=== PATIENT | male | born 1945 | race Caucasian/White ===

== ENCOUNTER 2016-12-15 09:14 | Inpatient (IN) | payer OTHER, BC ==
[2016-12-15] MEDS ORDERED: SODIUM CHLORIDE 0.9% 1000 ML INFUS.BAG IV ONE ×2 (10:00→11:08)
[2016-12-15 10:17] LABS: VENOUS PH 7.34 (7.32-7.42)
[2016-12-15 10:36] LABS: BASOPHIL 0.5 % (0-2.0); EOSINOPHIL 0.7 % (0-4.5); MCH 30.4 pg (25.7-33.7); MEAN CELL VOLUME 92.3 fl (80-96); MEAN PLT VOLUME 7.9 fl (7.5-11.1); NEUTROPHILS 69.2 % (42.8-82.8); PLATELET COUNT 171 K/MM3 (134-434); RDW 13.8 % (11.9-15.9); WHITE BLOOD COUNT 10.3 K/mm3 (4.0-10.0)
--- NOTE | 2016-12-15 10:45 | PDOC ---
History of Present Illness - General Chief Complaint: SIRS, Suspected/Possible Stated Complaint: FALL Time Seen by Provider: 12/15/16 09:30 History Source: Patient Exam Limitations: No Limitations - History of Present Illness Initial Comments: 12/15/16 10:40 The patient is a 71M with a PMH of HTN, ESRD s/p kidney transplant, DM, CAD s/p stents who presents to the ED via EMS for weakness. The patient states that he was feeling well until around 3am where he began to feel weak. He states that he did not fall, lose consciousness, or hit his head but thought it was secondary to hypoglycemia. He was laying on the ground and could not stand up. He tried to call his brother and eventually called EMS to bring him here. Surg: s/p renal transplant Meds: listed All: none Social: does not smoke, drink, or use recreational drugs Past History - Past Medical History Allergies/Adverse Reactions: Allergies Allergy/AdvReac Type Severity Reaction Status Date / Time No Known Allergies Allergy Verified 12/15/16 09:47 Home Medications: Ambulatory Orders Aspirin [Aspirin EC] 81 mg PO DAILY 12/15/16 Atorvastatin Ca [Lipitor] 20 mg PO HS 12/15/16 Clopidogrel Bisulfate [Plavix -] 75 mg PO DAILY 12/15/16 Furosemide [Lasix -] 40 mg PO DAILY 12/15/16 Insulin (Levemir) [Levemir Flexpen -] 22 units SQ HS 12/15/16 Insulin Aspart [Novolog] 16 unit SQ AC 12/15/16 Losartan Potassium 25 mg PO DAILY 12/15/16 Metoprolol Tartrate 50 mg PO BID 12/15/16 Mycophenolate Mofetil [Cellcept] 500 mg PO BID 12/15/16 Nifedipine [Procardia Xl] 30 mg PO BID 12/15/16 Pantoprazole Sodium [Protonix -] 20 mg PO DAILY 12/15/16 Prednisone 5 mg PO DAILY 12/15/16 Sodium Bicarbonate - 650 mg PO BID 12/15/16 Tacrolimus [Prograf] 3 mg PO BID 12/15/16 Tamsulosin HCl [Flomax] 0.4 mg PO DAILY 12/15/16 Anemia: No Asthma: No Cancer: No Cardiac Disorders: No CVA: No COPD: No CHF: No Dementia: No Diabetes: Yes GI Disorders: No Disorders: No HTN: Yes Hypercholesterolemia: Yes Liver Disease: No Seizures: No Thyroid Disease: No - Surgical History Abdominal Surgery: Yes Appendectomy: No Cardiac Surgery: No Cholecystectomy: No Lung Surgery: No Neurologic Surgery: No Orthopedic Surgery: No - Psycho/Social/Smoking Cessation Hx Anxiety: No Suicidal Ideation: No Smoking Status: No Smoking History: Never smoked Have you smoked in the past 12 months: No Number of Cigarettes Smoked Daily: 0 Information on smoking cessation initiated: No Hx Alcohol Use: No Drug/Substance Use Hx: No Substance Use Type: None Hx Substance Use Treatment: No Review of Systems - Review of Systems Able to Perform ROS?: Yes Is the patient limited Lao proficient: No Constitutional: Yes: Weakness. No: Chills, Fever Respiratory: No: Shortness of Breath Cardiac (ROS): No: Chest Pain ABD/GI: No: Constipated, Diarrhea, Nausea, Vomiting, Other (abd pain) Neurological: Yes: Weakness. No: Headache, Numbness, Tingling *Physical Exam - Vital Signs Last Vital Signs Temp Pulse Resp BP Pulse Ox 94.8 F L 97 H 18 155/120 98 12/15/16 10:00 12/15/16 09:15 12/15/16 09:15 12/15/16 10:00 12/15/16 09:15 - Physical Exam General Appearance: Yes: Nourished, Appropriately Dressed HEENT: positive: Normal Voice, Hearing Grossly Normal Respiratory/Chest: positive: Lungs Clear, Normal Breath Sounds. negative: Chest Tender, Respiratory Distress, Labored Respiration Cardiovascular: positive: Regular Rhythm, S1, S2, Bradycardia. negative: Regular Rate, Diastolic Murmur, Systolic Murmur Gastrointestinal/Abdominal: positive: Flat, Soft. negative: Tender, Distended, Guarding, Tenderness Integumentary: positive: Dry, Warm Neurologic: positive: Fully Oriented, Alert, Normal Mood/Affect ED Treatment Course - LABORATORY CBC & Chemistry Diagram: 12/15/16 10:21 12/15/16 10:21 - ADDITIONAL ORDERS Additional order review: Laboratory Results 12/15/16 12/15/16 10:15 09:41 VBG pH 7.34 POC VBG pCO2 32.1 L POC VBG pO2 80.4 H Mixed VBG HCO3 17.0 L POC Glucometer > 400 12/15/16 09:41 POC Glucometer > 400 - RADIOLOGY Radiology Studies Ordered: Category Date Time Status HEAD CT WITHOUT CONTRAST [CT] Stat CT Scan 12/15/16 10:35 Ordered CHEST X-RAY PORTABLE* [RAD] Stat Radiology 12/15/16 09:44 Taken - Medications Given in the ED: ED Medications Discontinued Medications Generic Name Dose Route Start Last Admin Trade Name Anibal PRN Reason Stop Dose Admin Sodium Chloride 1,000 ml 12/15/16 10:00 12/15/16 10:00 Normal Saline - IV 12/15/16 10:01 1,000 ml ONCE ONE Administration Medical Decision Making - Medical Decision Making 12/15/16 10:44 The patient is a 71M with a PMH of HTN, DM, ESRD s/p renal transplant, and CAD s /p stents who presented with weakness. His BG was read as "high" and he looked dehydrated (dry mucous membranes). We have started the sepsis protocol and I have ordered fluids for the patient. I will reassess when labs return. 12/15/16 11:15 WBC count of 10.3. CXR shows no acute process. 12/15/16 11:40 Lactate of 2.4. AG of 17. K at 5.0. Will start on insulin. 12/15/16 12:[address] Huston for ICU admission. He will be consulted on the admission. 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 Dizzy , disoriented, couldn't walk - was hypoglycemic. Kept saying he was fine. December 08 vitals. 102/50 P84 BG - 66, 76, 161 Dr. Paris at [facility] is his PCP. When he is ready for discharge, please contact the [facility] clinic at [phone]. 12/15/16 13:08 I spoke with PAVEL Hunt who accepts admission under Dr. Allan for ICU. *DC/Admit/Observation/Transfer Diagnosis at time of Disposition: Diabetic ketoacidosis Qualifiers: Diabetes mellitus type: other specified (including LAURA) Diabetes mellitus complication detail: without coma Qualified Code(s): E13.10 - Other specified diabetes mellitus with ketoacidosis without coma - Discharge Dispostion Condition at time of disposition: Stable Admit: Yes - Attestations Physician Attestion: 12/15/16 13:09 I, Dr. Eduard Camarillo, attest that this document has been prepared under my direction and personally reviewed by me in its entirety. I further attest, that it accurately reflects all work, treatment, procedures and medical decision -making performed by me.
--- NOTE | 2016-12-15 10:52 | PDOC ---
Attending Attestation - Resident Resident Name: Eduard Camarillo - ED Attending Attestation I have performed the following: I have examined & evaluated the patient, The case was reviewed & discussed with the resident, I agree w/resident's findings & plan, Exceptions are as noted - HPI HPI: 12/15/16 10:49 Agree with the resident's HPI as documented in the electronic medical record. - Physicial Exam PE: 12/15/16 10:49 Agree with the resident's physical examination as documented in the electronic medical record. - Medical Decision Making 12/15/16 10:50 71-year-old male with history of hypertension, end-stage renal disease status post renal transplant in 2015, coronary artery disease status post stent, diabetes who presents to the emergency department with generalized weakness and found on the ground unable to get up. FSG is >400 in the ED. Differential diagnosis includes but is not limited to: DKA, uncontrolled diabetes, sepsis, infection (pneumonia versus UTI), transplant rejection, electrolyte abnormality , ACS, CVA, toxic/metabolic derangement, dehydration. Plan: 1. EKG 2. Labs 3. Urine analysis 4. Panculture 5. IV fluids for hydration 6. Chest x-ray 7. CT head 8. Observe and reevaluate 12/15/16 13:01 Addendum: Labs were reviewed and are noted in the EMR. The patient has a glucose of 473 with an anion gap of 17 and + acetone in the blood. PH is 7.35. The patient is in DKA and an insulin drip was started at 0.1 units per kilogram per hour. IV fluid resuscitation has been administered, the patient has been pancultured and Zosyn has been administered with no clear source of infection. The plan is to admit to a monitored setting likely the ICU for continued management.
[2016-12-15 11:05] LABS: ACTIVATED PTT 31.5 SECONDS (26.9-34.4)
[2016-12-15 11:16] LABS: ALBUMIN 3.1 g/dl (3.4-5.0); ANION GAP 17 (8-16); CALCIUM 8.4 mg/dL (8.5-10.1); CO2 17 mmol/L (21-32); SGOT/AST 17 U/L (15-37); SGPT/ALT 21 U/L (12-78)
[2016-12-15 11:18] LABS: ALK PHOS 82 U/L (45-117); BILIRUBIN,TOTAL 0.5 mg/dL (0.2-1.0); CPK 129 IU/L (39-308); TROPONIN I < 0.02 ng/ml (0.00-0.05)
[2016-12-15 11:22] LABS: GLUCOSE,RANDOM 473 mg/dL (74-106)
[2016-12-15] MEDS ORDERED: INSULIN REGULAR HUMAN 100 UNITS/ML *VIAL SQ ONE (11:45)
[2016-12-15] MEDS ORDERED: PIPERACILLIN/TAZOB 3.375 GM/50 ML PRE-DOCKED IV ONE (11:46)
[2016-12-15] MEDS ORDERED: INSULIN REGULAR 100 UNITS in SODIUM CHLORIDE 99 ML IVPB SCH ×3 (12:00→18:45)
[2016-12-15] MEDS ORDERED: SODIUM CHLORIDE 1,000 ML IV SCH ×3 (12:00→17:00)
[2016-12-15] MEDS ORDERED: CEFTRIAXONE 50 ML ONE (12:09)
[2016-12-15] MEDS ORDERED: INSULIN REGULAR HUMAN 100 UNITS/ML *VIAL ONE (12:10)
[2016-12-15] MEDS ORDERED: ONDANSETRON 4 MG/2 ML VIAL IVPB PRN (13:09)
[2016-12-15] MEDS ORDERED: ACETAMINOPHEN 325 MG TABLET (FP) PO PRN (13:09)
--- NOTE | 2016-12-15 13:26 | EKG ---
Test Reason : Blood Pressure : / mmHG Vent. Rate : 102 BPM Atrial Rate : 049 BPM P-R Int : 184 ms QRS Dur : 086 ms QT Int : 536 ms P-R-T Axes : -38 -22 037 degrees QTc Int : 698 ms SUBOPTIMAL ECG DUE TO BASE LINE ARTIFACTS RHYTHM IS UNCERTAIN MINIMAL VOLTAGE CRITERIA FOR LVH, MAY BE NORMAL VARIANT LEFT AXIS DEVIATION AGE UNDETERMINED ANTEROSEPTAL MS COMPARED TO 2013 CANNOT DETERMINE UNDERLYING RHYTHM. REPAPEAT TRACING Confirmed by LETICIA HUTCHINS MD ([id number]) on 12/15/2016 1:25:50 PM Referred By: Confirmed By:LETICIA HUTCHINS MD
[2016-12-15 13:33] LABS: URINE APPEARANCE SLCLOUDY; URINE BILIRUBIN NEGATIVE (NEGATIVE); URINE BLOOD 2+ (NEGATIVE); URINE COLOR DKYELLOW; URINE GLUCOSE (UA) 3+ (NEGATIVE); URINE KETONE TRACE (NEGATIVE); URINE LEUK ESTERASE NEGATIVE (NEGATIVE); URINE NITRITE NEGATIVE (NEGATIVE); URINE PROTEIN NEGATIVE (NEGATIVE); URINE UROBILINOGEN NEGATIVE mg/dL (0.2-1.0)
[2016-12-15 13:55] LABS: URINE HYALINE CAST 99 /lpf; URINE MUCUS RARE; URINE RBC 4 /hpf (0-3); URINE WBC 1 /hpf (3-5)
[2016-12-15] MEDS ORDERED: HEPARIN NA (PORCINE) 5,000 UNITS/ML 1ML VIAL SQ SCH (14:00)
--- NOTE | 2016-12-15 14:47 | PN ---
Physical Exam: SUBJECTIVE: Patient seen and examined OBJECTIVE: Vital Signs Period Temp Pulse Resp BP Sys/Esposito Pulse Ox Last 24 Hr 95.2 F-95.8 F 56-62 18-22 101-102/43-44 99-100 GENERAL: The patient is awake, alert, and fully oriented, in no acute distress. HEAD: Normal with no signs of trauma. EYES: PERRL, extraocular movements intact, sclera anicteric, conjunctiva clear. No ptosis. ENT: Ears normal, nares patent, oropharynx clear without exudates, moist mucous membranes. NECK: Trachea midline, full range of motion, supple. LUNGS: Breath sounds equal, clear to auscultation bilaterally, no wheezes, no crackles, no accessory muscle use. HEART: Regular rate and rhythm, S1, S2 without murmur, rub or gallop. ABDOMEN: Soft, nontender, nondistended, normoactive bowel sounds, no guarding, no rebound, no hepatosplenomegaly, no masses. EXTREMITIES: 2+ pulses, warm, well-perfused, no edema. NEUROLOGICAL: Cranial nerves II through XII grossly intact. Normal speech, gait not observed. PSYCH: Normal mood, normal affect. SKIN: Warm, dry, normal turgor, no rashes or lesions noted Laboratory Results - last 24 hr 12/15/16 13:45 POC Glucometer > 400 Active Medications Generic Name Dose Route Start Last Admin Trade Name Freq PRN Reason Stop Dose Admin Heparin Sodium (Porcine) 5,000 unit 12/15/16 14:00 Heparin - SQ TID KAT Sodium Chloride 1,000 mls @ 200 mls/hr 12/15/16 12:00 12/15/16 12:25 Normal Saline - IV 200 mls/hr ASDIR KAT Administration Insulin Human Regular 100 100 mls @ 8.39 mls/hr 12/15/16 12:00 12/15/16 12:25 units/ Sodium Chloride IVPB 8.39 mls/hr TITR KAT Administration Protocol 0.1 UNITS/KG/HR Mycophenolate Mofetil 500 mg 12/15/16 22:00 Cellcept - PO BID KAT Prednisone 5 mg 12/16/16 10:00 Deltasone - PO DAILY KAT ASSESSMENT/PLAN:
--- NOTE | 2016-12-15 14:49 | HP ---
CHIEF COMPLAINT: generalized weakness PCP: Dr. Frazier ([facility] @ [facility]) HISTORY OF PRESENT ILLNESS: 71 yr old man s/p renal transplant, DM II and HTN presents with generalized weakness since this morning. He was on the floor for few hours and was crawling around due to weakness. Says he did not fall but slowly came down to the floor. He has been working around his house and was not eating or drinking as per his usual due to family stress(his brother has cancer and is not doing well). He thinks he may have missed insulin dosing sometime last week and possibly last night. Says he has been eating filet [email or web address] with steamed vegetables. He lives alone and does his own cooking. PAST MEDICAL HISTORY: Anemia, HLD, DMII, Vit D deficiency, HTN PAST SURGICAL HISTORY: Renal transplant: Mar 09 2016 HOME MEDICATIONS: [facility]: Neurologist: Dr. Zuniga PCP: dr. Paris (has not seen in him in a while) verified w/Zoey(RN): list from november 17 2016 Atovaquone 750/5mL 2 teaspoons 10ml daily DISCONTINUED, s/p valgancicyclovir 450 until August 2016 DISCONTINUED ASA 81mg po daily plavix 75mg po daily colace 100 TID + senna 8.6 1 tabs at bedtime prn for constipation lasix 40mg BID Aspart insulin 100u/ml, 14-20units sq before breakfast, 18-20 before lunch, 18- 20 before dinner (unknown frequency) detemir insulin 18units at bedtime (changed on 10/02 from 25 to 18units) losartan 25mg daily metrop Tart 50mg 1/2t BID Cellcept 500mg po bid procardia 30mg po bid protonix 20mg daily prednisone 5mg daily sodium bicarb 650mg 2tabs bid Tacromilus 1mgcapsule 3caps po q12hr tamsulosin 0.4mg 1 capsule daily metformin will start as outpt Home Medications6 Medication Instructions Recorded Aspirin [Aspirin EC] 81 mg PO DAILY 12/15/16 Atorvastatin Ca [Lipitor] DISCONTINUED 20 mg PO HS 12/15/16 Clopidogrel Bisulfate [Plavix -] 75 mg PO DAILY 12/15/16 Furosemide [Lasix -] 40 mg PO DAILY 12/15/16 Insulin (Levemir) [Levemir Flexpen 22 units SQ HS 12/15/16 -] Insulin Aspart [Novolog] 16 unit SQ AC 12/15/16 Losartan Potassium 25 mg PO DAILY 12/15/16 Metoprolol Tartrate 50 mg PO BID 12/15/16 Mycophenolate Mofetil [Cellcept] 500 mg PO BID 12/15/16 Nifedipine [Procardia Xl] 30 mg PO BID 12/15/16 Pantoprazole Sodium [Protonix -] 20 mg PO DAILY 12/15/16 Prednisone 5 mg PO DAILY 12/15/16 Sodium Bicarbonate - 650 mg PO BID 12/15/16 Tacrolimus [Prograf] 3 mg PO BID 12/15/16 Tamsulosin HCl [Flomax] 0.4 mg PO DAILY 12/15/16 REVIEW OF SYSTEMS CONSTITUTIONAL: Present:generalized weakness Absent: fever, chills, CARDIOVASCULAR: Absent: chest pain, syncope, palpitations. lightheadedness RESPIRATORY: Present: mild cough last week Absent: shortness of breath GASTROINTESTINAL: Absent: abdominal pain, vomiting, diarrhea GENITOURINARY: Present:frequency, Absent: dysuria PHYSICAL EXAMINATION Vital Signs - 24 hr 12/15/16 12/15/16 12/15/16 13:30 14:00 14:12 Temperature 95.2 F L 95.8 F L Pulse Rate 62 56 L Respiratory 20 22 Rate Blood Pressure 102/44 101/43 O2 Sat by Pulse 100 99 Oximetry (%) GENERAL: Awake, alert, and fully oriented, in no acute distress. EYES: Pupils equal, round and reactive to light, extraocular movements intact, sclera anicteric, conjunctiva clear. No lid lag. LUNGS: Breath sounds equal, clear to auscultation bilaterally. No wheezes, and no crackles. No accessory muscle use. HEART: Regular rate and rhythm, normal S1 and S2 without murmur, rub or gallop. ABDOMEN: Soft, nontender, not distended, Laboratory Results - last 24 hr 12/15/16 13:45 POC Glucometer > 400 Active Medications Chlorhexidine Gluconate (Hibiclens For Decolonization -) 1 applic TP HS KAT Clopidogrel Bisulfate (Plavix -) 75 mg PO DAILY KAT Docusate Sodium (Colace -) 100 mg PO TID PRN PRN Reason: CONSTIPATION Heparin Sodium (Porcine) (Heparin -) 5,000 unit SQ TID [facility] Dextrose/Sodium Chloride (D5-1/2ns -) 1,000 mls @ 250 mls/hr IV ASDIR KAT Stop: 12/15/16 20:14 Sodium Chloride (Normal Saline -) 1,000 mls @ 250 mls/hr IV ASDIR KAT Insulin Aspart (Novolog Vial Sliding Scale -) 1 vial SQ TIDAC KAT PRN Reason: Protocol Last Admin: 12/15/16 17:57 Dose: Not Given Insulin Detemir (Levemir Vial) 18 units SQ HS KAT Mupirocin (Bactroban Ointment (For Decolonization) -) 1 applic NS BID KAT Stop: 12/20/16 21:59 Mycophenolate Mofetil (Cellcept -) 500 mg PO BID KAT Pantoprazole Sodium (Protonix -) 20 mg PO DAILY KAT Prednisone (Deltasone -) 5 mg PO DAILY KAT Senna (Senna -) 1 tab PO DAILY PRN PRN Reason: CONSTIPATION Sodium Bicarbonate (Sodium Bicarbonate -) 1,300 mg PO BID [facility] Laboratory Last Values WBC 10.3 K/mm3 (4.0-10.0) H D 12/15/16 10:21 RBC 3.91 M/mm3 (4.00-5.60) L D 12/15/16 10:21 Hgb 11.9 GM/dL (11.7-16.9) D 12/15/16 10:21 Hct 36.1 % (35.4-49) D 12/15/16 10:21 MCV 92.3 fl (80-96) 12/15/16 10:21 MCH 30.4 pg (25.7-33.7) 12/15/16 10:21 MCHC 33.0 g/dl (32.0-35.9) 12/15/16 10:21 RDW 13.8 % (11.9-15.9) 12/15/16 10:21 Plt Count 171 K/MM3 (134-434) 12/15/16 10:21 MPV 7.9 fl (7.5-11.1) D 12/15/16 10:21 Neutrophils % 69.2 % (42.8-82.8) D 12/15/16 10:21 Lymphocytes % 18.5 % (8-40) D 12/15/16 10:21 Monocytes % 11.1 % (3.8-10.2) H D 12/15/16 10:21 Eosinophils % 0.7 % (0-4.5) D 12/15/16 10:21 Basophils % 0.5 % (0-2.0) 12/15/16 10:21 INR 1.00 (0.82-1.09) 12/15/16 10:21 PTT (Actin FS) 31.5 SECONDS (26.9-34.4) D 12/15/16 10:21 VBG pH 7.34 (7.32-7.42) 12/15/16 10:15 POC VBG pCO2 32.1 mmHg (38-52) L 12/15/16 10:15 POC VBG pO2 80.4 mmHg (28-48) H 12/15/16 10:15 Mixed VBG HCO3 17.0 meq/L (19-25) L 12/15/16 10:15 Sodium 142 mmol/L (136-145) 12/15/16 16:19 Potassium 4.5 mmol/L (3.5-5.1) 12/15/16 16:19 Chloride 108 mmol/L (98-107) H 12/15/16 16:19 Carbon Dioxide 17 mmol/L (21-32) L 12/15/16 16:19 Anion Gap 17 (8-16) H 12/15/16 16:19 BUN 66 mg/dL (7-18) H 12/15/16 16:19 Creatinine 2.9 mg/dL (0.7-1.3) H 12/15/16 16:19 Creat Clearance w eGFR 20.79 (>60) 12/15/16 10:21 POC Glucometer 167.49066 UNITS (()) 12/15/16 17:28 Random Glucose 256 mg/dL (74-106) H D 12/15/16 16:19 Lactic Acid 1.9 mmol/L (0.4-2.0) 12/15/16 14:00 Calcium 7.6 mg/dL (8.5-10.1) L 12/15/16 16:19 Phosphorus 4.8 mg/dL (2.5-4.9) 12/15/16 16:19 Magnesium 2.2 mg/dL (1.8-2.4) 12/15/16 16:19 Total Bilirubin 0.5 mg/dL (0.2-1.0) D 12/15/16 10:21 AST 17 U/L (15-37) D 12/15/16 10:21 ALT 21 U/L (12-78) 12/15/16 10:21 Alkaline Phosphatase 82 U/L (45-117) D 12/15/16 10:21 Ammonia 53.37 umol/L (11-32) H 12/15/16 11:33 Creatine Kinase 129 IU/L (39-308) 12/15/16 10:21 Troponin I < 0.02 ng/ml (0.00-0.05) D 12/15/16 10:21 Total Protein 6.0 g/dl (6.4-8.2) L 12/15/16 10:21 Albumin 3.1 g/dl (3.4-5.0) L 12/15/16 10:21 Urine Color Dkyellow 12/15/16 10:21 Urine Appearance Slcloudy 12/15/16 10:21 Urine pH 5.0 (5.0-8.0) 12/15/16 10:21 Urine Protein Negative (NEGATIVE) 12/15/16 10:21 Urine Glucose (UA) 3+ (NEGATIVE) H 12/15/16 10:21 Urine Ketones Trace (NEGATIVE) H 12/15/16 10:21 Urine Blood 2+ (NEGATIVE) H 12/15/16 10:21 Urine Nitrite Negative (NEGATIVE) 12/15/16 10:21 Urine Bilirubin Negative (NEGATIVE) 12/15/16 10:21 Urine Urobilinogen Negative mg/dL (0.2-1.0) 12/15/16 10:21 Ur Leukocyte Esterase Negative (NEGATIVE) 12/15/16 10:21 Urine RBC 4 /hpf (0-3) 12/15/16 10:21 Urine WBC 1 /hpf (3-5) 12/15/16 10:21 Ur Epithelial Cells Rare /hpf (FEW) 12/15/16 10:21 Hyaline Casts 99 /lpf 12/15/16 10:21 Urine Mucus Rare 12/15/16 10:21 Acetone, Qual Positive moderate 2+ (NEGATIVE) 12/15/16 11:30 Blood Type O POSITIVE 12/15/16 10:21 Antibody Screen Negative 12/15/16 10:21 ASSESSMENT/PLAN: 71 yr old man s/p renal transplant, HTN, DM II admitted to ICU for DKA. #DKA- hyperglycemia improved, likely due to medication noncompliance and non- diabetic diet/DM II - insulin IV, transition to levemir(long acting home dose of 18units) and NISS, start diet - BGM q2hr, repeat BMP with mag and phos q4hr - 1/2 NS @ 250cc/hr as recent Na is 142, was given boluses in ED + 1 bolus of d5 /1/2 NS in ICU when BGM <200 - plan to replete K+ as needed on repeat BMP - Consult: Heather Osborne (saw pt when he was receiving dialysis at [facility]) #LAVERNE - likely pre-renal - Discussed with Dr. Frazier who saw the patient in his office November 29, pt's Cr baseline is 1.7-1.9, verified post-transplant meds listed above, feels that elevated Cr is likely pre-renal as well, recommend holding metformin and anti- HTN medications and continuing tacrolimus, prednisone and Cellcept as prescribed He will follow the patient once discharged to repeat the BMP if it does not correct with IVF - IVF #renal transplant - continue immunotherapy meds #HTN - currently hypotensive, will hold home meds, restart once BP improves DVT: heparin sq TID Diet: renal/low Na/diabetic Pain: avoid nephrotoxic meds Visit type - Emergency Visit Emergency Visit: No - New Patient This patient is new to me today: Yes Date on this admission: 12/15/16 - Critical Care Critical Care patient: Yes Total Critical Care Time (in minutes): 32 Critical Care Statement: The care of this patient involved high complexity decision making to prevent further life threatening deterioration of the patient 's condition and/or to evalute & treat vital organ system(s) failure or risk of failure.
--- NOTE | 2016-12-15 15:24 | HP ---
CHIEF COMPLAINT: Weakness PCP: Dr. Paris Computer Publisher: Dr. Frazier HISTORY OF PRESENT ILLNESS: Pt is a 71yo M with a PMHx of IDDM2, ESRD (s/p transplant) who presented to the ER by EMS after an episode of weakness and lethargy. The pt stated that the patient felt weak this morning, no LOC, and brought himself to the floor w/o fall. He wasn't able to get himself back up, and called for EMS. His Blood sugar on the field was >400. The pt states that he is compliant with his insulin regimen, and took his night time and morning insulin as scheduled. He also felt feverish with chills, but had no CP, SOB, no abdominal pain, and no recent sick contacts. He denies recent surgeries or drug use. He states he did not sleep last night, due to poor sleeping habits. He has family stressors, he has difficulty dealing with his dying brother who has Hep C. He endorses polydipsia and polyuria last night and this morning. He states that he had had episode of low blood sugar in the past, but not high blood sugar. The patient checks his fingerstick glucose frequently, with Am glucose <100, and afternoon glucoses between 120-140. ER course was notable for: (1) FSG >400, IVF NS Bolus (2) CXR neg; Head CT neg (3) BMP - shows AG 17, K+ 5.5, Lactic Acid 2.4 (4) Started on Insulin drip 0.1mg/kg/hr w/o bolus dose (5) Given a dose of Zosyn Recent Travel: Denies PAST MEDICAL HISTORY: IDDM2, ESRD (s/p transplant in 2016 as per pt), CAD s/p stent, HTN,, BPH, ?GERD PAST SURGICAL HISTORY: Renal Tx in 2014, Cardiac stents Social History: Smoking: Denies Alcohol: Denies Drugs: Denies Family History: No family hx of diabetes Allergies No Known Allergies Allergy (Verified 12/15/16 09:47) HOME MEDICATIONS: Home Medications Medication Instructions Recorded Aspirin [Aspirin EC] 81 mg PO DAILY 12/15/16 Atorvastatin Ca [Lipitor] 20 mg PO HS 12/15/16 Clopidogrel Bisulfate [Plavix -] 75 mg PO DAILY 12/15/16 Furosemide [Lasix -] 40 mg PO DAILY 12/15/16 Insulin (Levemir) [Levemir Flexpen 22 units SQ HS 12/15/16 -] Insulin Aspart [Novolog] 16 unit SQ AC 12/15/16 Losartan Potassium 25 mg PO DAILY 12/15/16 Metoprolol Tartrate 50 mg PO BID 12/15/16 Mycophenolate Mofetil [Cellcept] 500 mg PO BID 12/15/16 Nifedipine [Procardia Xl] 30 mg PO BID 12/15/16 Pantoprazole Sodium [Protonix -] 20 mg PO DAILY 12/15/16 Prednisone 5 mg PO DAILY 12/15/16 Sodium Bicarbonate - 650 mg PO BID 12/15/16 Tacrolimus [Prograf] 3 mg PO BID 12/15/16 Tamsulosin HCl [Flomax] 0.4 mg PO DAILY 12/15/16 REVIEW OF SYSTEMS CONSTITUTIONAL: Absent: fever, diaphoresis, malaise, loss of appetite, weight change Present: chills, generalized weakness HEENT: Absent: rhinorrhea, nasal congestion, throat pain, throat swelling, difficulty swallowing, mouth swelling, ear pain, eye pain, visual changes CARDIOVASCULAR: Absent: chest pain, syncope, palpitations, irregular heart rate, lightheadedness , peripheral edema RESPIRATORY: Absent: cough, shortness of breath, dyspnea with exertion, orthopnea, wheezing, stridor, hemoptysis GASTROINTESTINAL: Absent: abdominal pain, abdominal distension, nausea, vomiting, diarrhea, constipation, melena, hematochezia GENITOURINARY: Absent: dysuria, frequency, urgency, hesitancy, hematuria, flank pain, genital pain Present: polyuria MUSCULOSKELETAL: Absent: myalgia, arthralgia, joint swelling, back pain, neck pain SKIN: Absent: rash, itching, pallor HEMATOLOGIC/IMMUNOLOGIC: Absent: easy bleeding, easy bruising, lymphadenopathy, frequent infections ENDOCRINE: Absent: unexplained weight gain, unexplained weight loss, heat intolerance, cold intolerance NEUROLOGIC: Absent: headache, focal weakness or paresthesias, dizziness, unsteady gait, seizure, mental status changes, bladder or bowel incontinence PSYCHIATRIC: Absent: anxiety, depression, suicidal or homicidal ideation, hallucinations. PHYSICAL EXAMINATION Vital Signs - 24 hr 12/15/16 12/15/16 12/15/16 13:30 14:00 14:12 Temperature 95.2 F L 95.8 F L Pulse Rate 62 56 L Respiratory 20 22 Rate Blood Pressure 102/44 101/43 O2 Sat by Pulse 100 99 Oximetry (%) GENERAL: AAOx3, in NAD, w/ bear hugger HEENT: PERRLA, EOMi, No pharyngeal exudate, no cervical LAD LUNG: CTABL, no labored respirations CV: S1, S2, RRR ABD: Soft, NT, ND, hypoactive BS MSK: No edema, no erythema NEURO: CN 2-12 intact, sensation equal and intact in face/body, MSK 5+ in all extremities Laboratory Results - last 24 hr 12/15/16 12/15/16 12/15/16 09:41 10:15 10:21 WBC 10.3 H D RBC 3.91 L D Hgb 11.9 D Hct 36.1 D MCV 92.3 MCH 30.4 MCHC 33.0 RDW 13.8 Plt Count 171 MPV 7.9 D Neutrophils % 69.2 D Lymphocytes % 18.5 D Monocytes % 11.1 H D Eosinophils % 0.7 D Basophils % 0.5 INR PTT (Actin FS) VBG pH 7.34 POC VBG pCO2 32.1 L POC VBG pO2 80.4 H Mixed VBG HCO3 17.0 L Sodium Potassium Chloride Carbon Dioxide Anion Gap BUN Creatinine Creat Clearance w eGFR POC Glucometer > 400 Random Glucose Lactic Acid Calcium Total Bilirubin AST ALT Alkaline Phosphatase Ammonia Creatine Kinase Troponin I Total Protein Albumin Urine Color Urine Appearance Urine pH Urine Protein Urine Glucose (UA) Urine Ketones Urine Blood Urine Nitrite Urine Bilirubin Urine Urobilinogen Ur Leukocyte Esterase Urine RBC Urine WBC Ur Epithelial Cells Hyaline Casts Urine Mucus Acetone, Qual Blood Type Antibody Screen 12/15/16 12/15/16 12/15/16 10:21 10:21 10:21 WBC RBC Hgb Hct MCV MCH MCHC RDW Plt Count MPV Neutrophils % Lymphocytes % Monocytes % Eosinophils % Basophils % INR 1.00 PTT (Actin FS) 31.5 D VBG pH POC VBG pCO2 POC VBG pO2 Mixed VBG HCO3 Sodium 135 L Potassium 5.0 D Chloride 101 Carbon Dioxide 17 L Anion Gap 17 H BUN 69 H D Creatinine 3.0 H D Creat Clearance w eGFR 20.79 POC Glucometer Random Glucose 473 H* D Lactic Acid Calcium 8.4 L Total Bilirubin 0.5 D AST 17 D ALT 21 Alkaline Phosphatase 82 D Ammonia Creatine Kinase 129 Troponin I < 0.02 D Total Protein 6.0 L Albumin 3.1 L Urine Color Dkyellow Urine Appearance Slcloudy Urine pH 5.0 Urine Protein Negative Urine Glucose (UA) 3+ H Urine Ketones Trace H Urine Blood 2+ H Urine Nitrite Negative Urine Bilirubin Negative Urine Urobilinogen Negative Ur Leukocyte Esterase Negative Urine RBC 4 Urine WBC 1 Ur Epithelial Cells Rare Hyaline Casts 99 Urine Mucus Rare Acetone, Qual Blood Type Antibody Screen 12/15/16 12/15/16 12/15/16 10:21 10:21 11:30 WBC RBC Hgb Hct MCV MCH MCHC RDW Plt Count MPV Neutrophils % Lymphocytes % Monocytes % Eosinophils % Basophils % INR PTT (Actin FS) VBG pH POC VBG pCO2 POC VBG pO2 Mixed VBG HCO3 Sodium Potassium Chloride Carbon Dioxide Anion Gap BUN Creatinine Creat Clearance w eGFR POC Glucometer Random Glucose Lactic Acid 2.4 H* Calcium Total Bilirubin AST ALT Alkaline Phosphatase Ammonia Creatine Kinase Troponin I Total Protein Albumin Urine Color Urine Appearance Urine pH Urine Protein Urine Glucose (UA) Urine Ketones Urine Blood Urine Nitrite Urine Bilirubin Urine Urobilinogen Ur Leukocyte Esterase Urine RBC Urine WBC Ur Epithelial Cells Hyaline Casts Urine Mucus Acetone, Qual Positive moderate 2+ Blood Type O POSITIVE Antibody Screen Negative 12/15/16 12/15/16 12/15/16 11:33 13:45 14:00 WBC RBC Hgb Hct MCV MCH MCHC RDW Plt Count MPV Neutrophils % Lymphocytes % Monocytes % Eosinophils % Basophils % INR PTT (Actin FS) VBG pH POC VBG pCO2 POC VBG pO2 Mixed VBG HCO3 Sodium Potassium Chloride Carbon Dioxide Anion Gap BUN Creatinine Creat Clearance w eGFR POC Glucometer > 400 Random Glucose Lactic Acid 1.9 Calcium Total Bilirubin AST ALT Alkaline Phosphatase Ammonia 53.37 H Creatine Kinase Troponin I Total Protein Albumin Urine Color Urine Appearance Urine pH Urine Protein Urine Glucose (UA) Urine Ketones Urine Blood Urine Nitrite Urine Bilirubin Urine Urobilinogen Ur Leukocyte Esterase Urine RBC Urine WBC Ur Epithelial Cells Hyaline Casts Urine Mucus Acetone, Qual Blood Type Antibody Screen ASSESSMENT/PLAN: Pt is a 71yo M with a PMHx of IDDM2, ESRD (s/p transplant) who presented to the ER by EMS after an episode of weakness and lethargy and found to have a glucose >400. # Diabetic Ketoacidosis vs Hyperglycemia - Pt received IVNS Bolus x 3 - Pt was on insulin drip - FSG now 199 - Started on home Levemir 18 + SSI - Start D5-1/2NS @ 250cc/hr x 1 bag --> Switch to 1/2NS @ 250cc/hr - Monitor repeat BMP - BMP Q4, FSG Q2 - Strict Is & Os - Endocrine Consult # LAVERNE on CKD - Likely prerenal from polyuria, volume depletion - Pts Cr baseline is 1.7-1.9 - Continue IVF - Avoid nephrotoxic meds - Renally dose all meds # Hx of ESRD s/p renal transplant - Call was placed to Dr. Frazier (patient's Computer Publisher) who verified post- transplant meds - Continue Cellcept 500mg BID + Tacrolimus 3mg BID + Prednisone 5mg QD - Continue sodium bicarb 1300 BID - Nephro consult # Rhabdomyolysis - High CK index w/ likely myoglobinuria - Monitor CPK with IVF # Leukocytosis - Prednisone vs Reactive vs Infectious - Blood cx pending - Ucx pending - Monitor CBC # Hx of HTN - currently hypotensive - Hold Losartan 25mg QD + Metoprolol 50mg BID + Nifedipine 30mg BID # Hx of CAD - Continue Plavix 75mg QD - Hold Statin for Rhabdo - Hold ASA 81mg QD until baseline Cr obtained # Hx of BPH - Hold Flomax for HTN # FEN - Fluids: On D5 1/2 NS @ 250cc/hr - Electrolytes: BMP Q4 - Nutrition: NPO until off insulin drip # Prophylaxis - DVT: Heparin SQ 5000 BID - GI: Protonix 20mg QD - Deconditioning: PT when drip is d/cd # Code Status - Pt states he is DNI not DNR # Disposition - When AG closes, pt can be transferred to floors Visit type - Emergency Visit Emergency Visit: No - New Patient This patient is new to me today: No - Critical Care Critical Care patient: Yes Total Critical Care Time (in minutes): 55 Critical Care Statement: The care of this patient involved high complexity decision making to prevent further life threatening deterioration of the patient 's condition and/or to evalute & treat vital organ system(s) failure or risk of failure.
[2016-12-15] MEDS ORDERED: SODIUM CHLORIDE 1,000 ML IV STA (15:59)
[2016-12-15] MEDS ORDERED: DEXTROSE 5%-0.45% SALINE 1,000 ML IV SCH ×3 (16:15→20:30)
[2016-12-15] MEDS ORDERED: D5-1/2NS+20 MEQ KCL - 1,000 ML IV SCH ×2 (16:30→16:34)
[2016-12-15 16:38] LABS: ANION GAP 17 (8-16); CALCIUM 7.6 mg/dL (8.5-10.1); CO2 17 mmol/L (21-32); CREATININE 2.9 mg/dL (0.7-1.3); GLUCOSE,RANDOM 256 mg/dL (74-106)
--- NOTE | 2016-12-15 16:52 | PN ---
Teaching Attending Note Name of Resident: Ana Robertson ATTENDING PHYSICIAN STATEMENT I saw and evaluated the patient. I reviewed the resident's note and discussed the case with the resident. I agree with the resident's findings and plan as documented. SUBJECTIVE: Patient is very nice gentleman presented with lethargy and weakness, as per patient was not eating or drinking water much, since was trying to pack to go to see her brother in [place] since was diagnosed with cancer recently. OBJECTIVE: Vital Signs Temperature 97.8 F 12/15/16 16:40 Pulse Rate 66 12/15/16 16:40 Respiratory Rate 20 12/15/16 16:40 Blood Pressure 92/43 12/15/16 16:40 O2 Sat by Pulse Oximetry (%) 99 12/15/16 14:12 CBCD WBC 10.3 K/mm3 (4.0-10.0) H D 12/15/16 10:21 RBC 3.91 M/mm3 (4.00-5.60) L D 12/15/16 10:21 Hgb 11.9 GM/dL (11.7-16.9) D 12/15/16 10:21 Hct 36.1 % (35.4-49) D 12/15/16 10:21 MCV 92.3 fl (80-96) 12/15/16 10:21 MCHC 33.0 g/dl (32.0-35.9) 12/15/16 10:21 RDW 13.8 % (11.9-15.9) 12/15/16 10:21 Plt Count 171 K/MM3 (134-434) 12/15/16 10:21 MPV 7.9 fl (7.5-11.1) D 12/15/16 10:21 CMP Sodium 142 mmol/L (136-145) 12/15/16 16:19 Potassium 4.5 mmol/L (3.5-5.1) 12/15/16 16:19 Chloride 108 mmol/L (98-107) H 12/15/16 16:19 Carbon Dioxide 17 mmol/L (21-32) L 12/15/16 16:19 Anion Gap 17 (8-16) H 12/15/16 16:19 BUN 66 mg/dL (7-18) H 12/15/16 16:19 Creatinine 2.9 mg/dL (0.7-1.3) H 12/15/16 16:19 Creat Clearance w eGFR 20.79 (>60) 12/15/16 10:21 Random Glucose 256 mg/dL (74-106) H D 12/15/16 16:19 Calcium 7.6 mg/dL (8.5-10.1) L 12/15/16 16:19 Total Bilirubin 0.5 mg/dL (0.2-1.0) D 12/15/16 10:21 AST 17 U/L (15-37) D 12/15/16 10:21 ALT 21 U/L (12-78) 12/15/16 10:21 Alkaline Phosphatase 82 U/L (45-117) D 12/15/16 10:21 Total Protein 6.0 g/dl (6.4-8.2) L 12/15/16 10:21 Albumin 3.1 g/dl (3.4-5.0) L 12/15/16 10:21 CARDIAC ENZYMES Creatine Kinase 129 IU/L (39-308) 12/15/16 10:21 Troponin I < 0.02 ng/ml (0.00-0.05) D 12/15/16 10:21 Current Medications Generic Name Dose Route Start Last Admin Trade Name Freq PRN Reason Stop Dose Admin Chlorhexidine Gluconate 1 applic 12/15/16 22:00 Hibiclens For Decolonization - TP HS KAT Heparin Sodium (Porcine) 5,000 unit 12/15/16 14:00 Heparin - SQ TID KAT Sodium Chloride 1,000 mls @ 200 mls/hr 12/15/16 12:00 12/15/16 12:25 Normal Saline - IV 200 mls/hr ASDIR KAT Administration Sodium Chloride 1,000 mls @ 1,000 mls/hr 12/15/16 15:59 12/15/16 15:00 Normal Saline - IV 12/15/16 16:58 Not Given ASDIR STA Potassium Chloride/Dextrose/Sod Cl 1,000 mls @ 250 mls/hr 12/15/16 16:34 D5-1/2ns+20 Meq Kcl - IV ASDIR KAT Dextrose/Sodium Chloride 1,000 mls @ 250 mls/hr 12/15/16 16:47 D5-1/2ns - IV 12/15/16 20:14 ASDIR KAT Insulin Aspart 1 vial 12/15/16 17:00 Novolog Vial Sliding Scale - SQ TIDAC [facility] Protocol Insulin Detemir 18 units 12/15/16 22:00 Levemir Vial SQ HS [facility]1983 Mupirocin 1 applic 12/15/16 22:00 Bactroban Ointment (For Decolonization) - NS 12/20/16 21:59 BID [facility]1983 Mycophenolate Mofetil 500 mg 12/15/16 22:00 Cellcept - PO BID [facility] Prednisone 5 mg 12/16/16 10:00 Deltasone - PO DAILY [facility] Hepatic Panel Total Bilirubin 0.5 mg/dL (0.2-1.0) D 12/15/16 10:21 AST 17 U/L (15-37) D 12/15/16 10:21 ALT 21 U/L (12-78) 12/15/16 10:21 Alkaline Phosphatase 82 U/L (45-117) D 12/15/16 10:21 Albumin 3.1 g/dl (3.4-5.0) L 12/15/16 10:21 Home Medications Medication Instructions Recorded Aspirin [Aspirin EC] 81 mg PO DAILY 12/15/16 Atorvastatin Ca [Lipitor] 20 mg PO HS 12/15/16 Clopidogrel Bisulfate [Plavix -] 75 mg PO DAILY 12/15/16 Furosemide [Lasix -] 40 mg PO DAILY 12/15/16 Insulin (Levemir) [Levemir Flexpen 22 units SQ HS 12/15/16 -] Insulin Aspart [Novolog] 16 unit SQ AC 12/15/16 Losartan Potassium 25 mg PO DAILY 12/15/16 Metoprolol Tartrate 50 mg PO BID 12/15/16 Mycophenolate Mofetil [Cellcept] 500 mg PO BID 12/15/16 Nifedipine [Procardia Xl] 30 mg PO BID 12/15/16 Pantoprazole Sodium [Protonix -] 20 mg PO DAILY 12/15/16 Prednisone 5 mg PO DAILY 12/15/16 Sodium Bicarbonate - 650 mg PO BID 12/15/16 Tacrolimus [Prograf] 3 mg PO BID 12/15/16 Tamsulosin HCl [Flomax] 0.4 mg PO DAILY 12/15/16 Chest: CTA BL Heart: S1S2 positive, ALTA 2/6, PE: per resident's note ASSESSMENT AND PLAN: Pt is a 71yo M with a PMHx of IDDM2, ESRD (s/p transplant) who presented to the ER by EMS after an episode of weakness and lethargy and found to have a glucose >400. # Diabetic Ketoacidosis with PH 7.31, AG of 17, Blood sugar over 400s, now the sugar is in 200's , sliding scal with coverage, Levemir added, IV fluid check bmp with mag and phos every 4 hrs. sliding scale every 2 hrs with coverage. # Acute mild Leukocytosis on IVF, no need of IV antibiotics at this time. On Prednisone since patient is a transplant patient # Acute Renal failure(transplant patient) with baseline Creatinine , his Kidney transplant doctor at [facility] ([phone]) Continue Cellcept 500mg BID ; Continue Tacrolimus 3mg BID; Continue Prednisone 5mg QD; Continue sodium bicarb 1300 BID - Nephro consult # HTN Hold Losartan 25mg QD lasix since elevated creatinine Also Hold Metoprolol 50mg BID and Nifedipine 30mg BID due to having low blood pressure. # Hx of CAD on Plavix 75mg QD. hold Statin for Rhabdo; Hold ASA 81mg QD until baseline Cr obtained # Hx of BPH Hold Flomax for HTN # Prophylaxis for DVT: Heparin SQ 5000 BID GI: Protonix 20mg QD - Code Status Pt states he is DNI not DNR
[2016-12-15] MEDS ORDERED: INSULIN SLIDING SCALE (NOVOLOG) 1 VIAL SQ SCH ×2 (17:00→19:30)
[2016-12-15] MEDS ORDERED: SENNOSIDES 8.6MG TABLET (FP) PO PRN (17:47)
[2016-12-15] MEDS ORDERED: DOCUSATE SODIUM 100 MG CAPSULE (FP) PO PRN (17:47)
[2016-12-15 17:49] LABS: MAGNESIUM 2.2 mg/dL (1.8-2.4); PHOSPHOROUS 4.8 mg/dL (2.5-4.9)
--- NOTE | 2016-12-15 19:15 | CONSULT ---
Consult - text type - Consultation Consultation Note: PULM/CCM Pt seen and examined in the ICU Reason for admission: diabetic ketoacidosis CC: weakness HPI: Mr Ferreira is a 71yo M with a PMHx notable for IDDM2, ESRD (s/p DDRT, our labs indicate Cr 2.4-4, per Neph 1.4-1.9) who presents to ED today after an episode of weakness and lethargy. Pt relates onset of feeling weak starting this morning. He did not fall but laid on floor and was unable to get back up prompting 911 call. There was no injury, no LOC, no localizing symptoms and but subjective fever and chills. No sick contacts, no recent changes in immunosuppression. 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 BGL per EMS was >400. Pt relates that he is compliant with his insulin regimen, and took his night time and morning insulin as scheduled. . Has had some insomnia due family stressors. . Relates polydipsia and polyuria last night and this morning. He states that he had had episode of low blood sugar in the past, but not high blood sugar. The patient checks his fingerstick glucose frequently, with Am glucose <100, and afternoon glucoses between 120-140. In ED pt was awake, alert, mildly hypothemic 94, hypertensive, without resp distress or hypoxia. Blood sugar remained elevated, labs notable for AG of 17, Cr of 2.4. Give bolus and started on insulin gtt. Cxr was clear, UA was negative , abx were considered but not given. CT head was negative. Fingerstick downtrended nicely but AG remained 17, transfered to ICU. Home Medications Medication Instructions Recorded Aspirin [Aspirin EC] 81 mg PO DAILY 12/15/16 Clopidogrel Bisulfate [Plavix -] 75 mg PO DAILY 12/15/16 Docusate Sodium [Colace -] 100 mg PO TID PRN 12/15/16 Furosemide [Lasix -] 40 mg PO DAILY 12/15/16 Insulin (Levemir) [Levemir Flexpen 18 units SQ HS 12/15/16 -] Insulin Aspart [Novolog] 14 - 20 units SQ DAILY 12/15/16 Insulin Aspart [Novolog] 18 - 20 unit SQ AC 12/15/16 Losartan Potassium 25 mg PO DAILY 12/15/16 Metoprolol Tartrate 25 mg PO BID 12/15/16 Mycophenolate Mofetil [Cellcept] 500 mg PO BID 12/15/16 Nifedipine [Procardia Xl] 30 mg PO BID 12/15/16 Pantoprazole Sodium [Protonix -] 20 mg PO DAILY 12/15/16 Prednisone 5 mg PO DAILY 12/15/16 Sennosides [Senna] 8.6 mg PO DAILY PRN 12/15/16 Sodium Bicarbonate - 1,300 mg PO BID 12/15/16 Tacrolimus [Prograf] 3 mg PO BID 12/15/16 Tamsulosin HCl [Flomax] 0.4 mg PO DAILY 12/15/16 Active Medications Chlorhexidine Gluconate (Hibiclens For Decolonization -) 1 applic TP HS [facility] Clopidogrel Bisulfate (Plavix -) 75 mg PO DAILY [facility] Docusate Sodium (Colace -) 100 mg PO TID PRN PRN Reason: CONSTIPATION Heparin Sodium (Porcine) (Heparin -) 5,000 unit SQ BID [facility] Dextrose/Sodium Chloride (D5-1/2ns -) 1,000 mls @ 250 mls/hr IV ASDIR [facility] Stop: 12/15/16 20:14 Last Admin: 12/15/16 16:55 Dose: 250 mls/hr Sodium Chloride (Normal Saline -) 1,000 mls @ 250 mls/hr IV ASDIR [facility] Last Admin: 12/15/16 19:09 Dose: 250 mls/hr Insulin Human Regular 100 (units/ Sodium Chloride) 100 mls @ 7.89 mls/hr IVPB TITR KAT; 0.1 UNITS/KG/HR PRN Reason: Protocol Last Admin: 12/15/16 19:20 Dose: 1 mls/hr Insulin Aspart (Novolog Vial Sliding Scale -) 0 vial SQ Q2H [facility] PRN Reason: Protocol Insulin Detemir (Levemir Vial) 18 units SQ HS [facility] Mupirocin (Bactroban Ointment (For Decolonization) -) 1 applic NS BID [facility] Stop: 12/20/16 21:59 Mycophenolate Mofetil (Cellcept -) 500 mg PO BID [facility] Pantoprazole Sodium (Protonix -) 20 mg PO DAILY [facility] Prednisone (Deltasone -) 5 mg PO DAILY [facility] Senna (Senna -) 1 tab PO DAILY PRN PRN Reason: CONSTIPATION Sodium Bicarbonate (Sodium Bicarbonate -) 1,300 mg PO BID [facility] Vital Signs Temp 97.8 F 12/15/16 19:12 Pulse 80 12/15/16 19:12 Resp 18 12/15/16 19:12 BP 105/62 12/15/16 19:12 Pulse Ox 99 12/15/16 18:57 Intake & Output 12/14/16 12/15/16 12/15/16 23:59 11:59 23:59 Weight 83.915 kg 78.925 kg Other: Voiding Method Urinal Height 5 ft 8 in 5 ft 8 in Body Mass Index (BMI) 28.1 26.4 Weight Measurement Method Built in [facility] Current Active Problems DKA (diabetic ketoacidoses) (Acute) CBCD WBC 10.3 K/mm3 (4.0-10.0) H D 12/15/16 10:21 RBC 3.91 M/mm3 (4.00-5.60) L D 12/15/16 10:21 Hgb 11.9 GM/dL (11.7-16.9) D 12/15/16 10:21 Hct 36.1 % (35.4-49) D 12/15/16 10:21 MCV 92.3 fl (80-96) 12/15/16 10:21 MCHC 33.0 g/dl (32.0-35.9) 12/15/16 10:21 RDW 13.8 % (11.9-15.9) 12/15/16 10:21 Plt Count 171 K/MM3 (134-434) 12/15/16 10:21 MPV 7.9 fl (7.5-11.1) D 12/15/16 10:21 CMP Sodium 142 mmol/L (136-145) 12/15/16 16:19 Potassium 4.5 mmol/L (3.5-5.1) 12/15/16 16:19 Chloride 108 mmol/L (98-107) H 12/15/16 16:19 Carbon Dioxide 17 mmol/L (21-32) L 12/15/16 16:19 Anion Gap 17 (8-16) H 12/15/16 16:19 BUN 66 mg/dL (7-18) H 12/15/16 16:19 Creatinine 2.9 mg/dL (0.7-1.3) H 12/15/16 16:19 Creat Clearance w eGFR 20.79 (>60) 12/15/16 10:21 Random Glucose 256 mg/dL (74-106) H D 12/15/16 16:19 Calcium 7.6 mg/dL (8.5-10.1) L 12/15/16 16:19 Total Bilirubin 0.5 mg/dL (0.2-1.0) D 12/15/16 10:21 AST 17 U/L (15-37) D 12/15/16 10:21 ALT 21 U/L (12-78) 12/15/16 10:21 Alkaline Phosphatase 82 U/L (45-117) D 12/15/16 10:21 Total Protein 6.0 g/dl (6.4-8.2) L 12/15/16 10:21 Albumin 3.1 g/dl (3.4-5.0) L 12/15/16 10:21 CARDIAC ENZYMES Creatine Kinase 129 IU/L (39-308) 12/15/16 10:21 Troponin I < 0.02 ng/ml (0.00-0.05) D 12/15/16 10:21 9 pt review of systems was negative except as per HPI PE: GENERAL: Awake, alert, and fully oriented, in no acute distress. HEENT: PERRLA, EOMI, no asymetery LUNGS: Breath sounds equal, clear to auscultation bilaterally. No wheezes, and no crackles. No accessory muscle use. HEART: Regular rate and rhythm, normal S1 and S2 without murmur, rub or gallop. 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 NEURO: non focal exam CXR: negative CT head: negative A/ 71 yr old man s/p renal transplant, HTN, DM II p/w DKA, unclear precipitating factor, no clear localizing illness, suspect medication error (stressors, insominia) ENDO: DKA- - confirm BGL < 250 and AG closed , if able to eat then transition to Levamir and sliding scale, with two hour gtt lag - insulin IV, transition to levemir(long acting home dose of 18units) and NISS, start diet - BGM q2hr, repeat BMP with mag and phos q4hr - 1/2 NS @ 250cc/hr as recent Na is 142, was given boluses in ED + 1 bolus of d5 /1/2 NS in ICU when BGM <200 - plan to replete K+ as needed on repeat BMP Renal: LAVERNE, likely pre-renal/dehydration 2/2 polyuria. S/p renal Transplant on long standing stable immunosuppression - Hospitalist discussed with Dr. Frazier who saw the patient in his office November 29, recommend holding metformin and anti-HTN medications - continue tacrolimus, prednisone and Cellcept as prescribed He will follow the patient once discharged to repeat the BMP if it does not correct with IVF - gently fluid resusitation - if cr worsens would send Tac[place] level, but is sendout with long turnaround time. HTN; currently normotensive -restart home meds as necessary DVT: heparin sq TID, no indication for GI prophy FEN: renal/low Na/diabetic If gap remains closed in AM, ok for floor. Tang Jj ANCP [id number]
[2016-12-15 19:27] LABS: ANION GAP 12 (8-16); CALCIUM 7.7 mg/dL (8.5-10.1); CO2 18 mmol/L (21-32); GLUCOSE,RANDOM 206 mg/dL (74-106)
[2016-12-15] MEDS ORDERED: HEMOQUE TEST 1 EACH EACH ONE (20:34)
[2016-12-15] MEDS ORDERED: INSULIN (NOVOLOG) ASPART 100 UNITS/ML 10ML VIAL ONE (20:44)
[2016-12-15] MEDS ORDERED: INSULIN DETEMIR 100 UNITS/ML MDV SQ ONE (20:44)
[2016-12-15] MEDS: INSULIN DETEMIR 100 UNITS/ML MDV SQ SCH ×2 (20:46→21:59)
[2016-12-15] MEDS: INSULIN SLIDING SCALE (NOVOLOG) 1 VIAL SQ SCH (21:02)
[2016-12-15] MEDS ORDERED: PT OWN MED DRAWER 7, Y5N ONE (21:26)
[2016-12-15] MEDS: HEPARIN NA (PORCINE) 5,000 UNITS/ML 1ML VIAL SQ SCH (21:57)
[2016-12-15] MEDS: MUPIROCIN 2% TOPICAL OINTMENT FOR DECOLONIZATION NS SCH (21:58)
[2016-12-15] MEDS: SODIUM BICARBONATE 650 MG TABLET PO SCH (21:58)
[2016-12-15] MEDS ORDERED: CHLORHEXIDINE GLUCONATE 4% CLEANSER FOR DECOLONIZATION TP SCH ×2 (22:00)
[2016-12-15] MEDS: MYCOPHENOLATE MOFETIL 500 MG TABLET PO SCH (22:00)
[2016-12-15] MEDS ORDERED: MUPIROCIN 2% TOPICAL OINTMENT FOR DECOLONIZATION NS SCH (22:00)
[2016-12-15] MEDS ORDERED: TACROLIMUS 3 MG PO SCH (22:00)
[2016-12-15] MEDS ORDERED: SODIUM CHLORIDE 0.45% 1,000 ML IV SCH (22:30)
[2016-12-16] MEDS: INSULIN SLIDING SCALE (NOVOLOG) 1 VIAL SQ SCH (06:28)
[2016-12-16] MEDS ORDERED: PT OWN MED DRAWER 7, Y5N ONE (06:32)
[2016-12-16 06:55] LABS: MCHC 32.9 g/dl (32.0-35.9); MEAN PLT VOLUME 7.7 fl (7.5-11.1); PLATELET COUNT 167 K/MM3 (134-434); WHITE BLOOD COUNT 12.2 K/mm3 (4.0-10.0)
[2016-12-16 07:23] LABS: ANION GAP 12 (8-16); CALCIUM 7.4 mg/dL (8.5-10.1); CO2 19 mmol/L (21-32); CREATININE 3.1 mg/dL (0.7-1.3); GLUCOSE,RANDOM 59 mg/dL (74-106); MAGNESIUM 2.1 mg/dL (1.8-2.4); PHOSPHOROUS 4.3 mg/dL (2.5-4.9)
[2016-12-16 07:24] LABS: CPK 174 IU/L (39-308)
--- NOTE | 2016-12-16 09:18 | CONSULT ---
Consult Consult Specialty:: Endocrinology Referred by:: Dr Allan Reason for Consultation:: DKA - History of Present Illness Chief Complaint: Fatigue History of Present Illness: The patient is a 71M with a PMH of HTN, ESRD on HD for about 5 years, s/p kidney transplant in 2016, DM since 1970, on oral meds for about 3 years and on Insulin after that, CAD s/p stents who presents to the ED via EMS with c/o weakness. The patient states that he was feeling well until around 3am where he began to feel weak. He states that he did not fall, lose consciousness, or hit his head but thought it was secondary to hypoglycemia. He was laying on the ground and could not stand up. He tried to call his brother and eventually called EMS to bring him here. Pt found to be hyperglycemic with anion gap metabolic acidosis with moderately positive for acetone. Pt treated with IV hydration and IV Insulin with improvement in acidosis and normalization of A gap. Pt currently in bed in [facility]. Says she takes 20 Levemir daily and 16 Novolog TID at home. Fs at home fluctuates from 100 to 410. No h/o of LOC from hypoglycemia. Has no visual symptoms. Saw ophthalmology 3 weeks ago and was told he has some "fluid" in the back of the eye. Has numbness of feet. - History Source History Provided By: Patient, Medical Record - Past Medical History Renal/: Yes: Other (S/P renal transplant) Endocrine: Yes: Diabetes Mellitus - Alcohol/Substance Use Hx Alcohol Use: No - Smoking History Smoking history: Never smoked Have you smoked in the past 12 months: No Aproximately how many cigarettes per day: 0 Home Medications - Allergies Allergies/Adverse Reactions: Allergies Allergy/AdvReac Type Severity Reaction Status Date / Time No Known Allergies Allergy Verified 12/15/16 09:47 - Home Medications Home Medications: Ambulatory Orders Aspirin [Aspirin EC] 81 mg PO DAILY 12/15/16 Clopidogrel Bisulfate [Plavix -] 75 mg PO DAILY 12/15/16 Docusate Sodium [Colace -] 100 mg PO TID PRN 12/15/16 Furosemide [Lasix -] 40 mg PO DAILY 12/15/16 Insulin (Levemir) [Levemir Flexpen -] 18 units SQ HS 12/15/16 Insulin Aspart [Novolog] 14 - 20 units SQ DAILY 12/15/16 Insulin Aspart [Novolog] 18 - 20 unit SQ AC 12/15/16 Losartan Potassium 25 mg PO DAILY 12/15/16 Metoprolol Tartrate 25 mg PO BID 12/15/16 Mycophenolate Mofetil [Cellcept] 500 mg PO BID 12/15/16 Nifedipine [Procardia Xl] 30 mg PO BID 12/15/16 Pantoprazole Sodium [Protonix -] 20 mg PO DAILY 12/15/16 Prednisone 5 mg PO DAILY 12/15/16 Sennosides [Senna] 8.6 mg PO DAILY PRN 12/15/16 Sodium Bicarbonate - 1,300 mg PO BID 12/15/16 Tacrolimus [Prograf] 3 mg PO BID 12/15/16 Tamsulosin HCl [Flomax] 0.4 mg PO DAILY 12/15/16 Family Disease History - Family Disease History Other Family History: No family h/o DM Review of Systems - Review of Systems Constitutional: reports: Weakness Eyes: reports: No Symptoms HENT: reports: No Symptoms Neck: reports: No Symptoms Cardiovascular: reports: No Symptoms Respiratory: reports: No Symptoms Gastrointestinal: reports: No Symptoms Genitourinary: reports: No Symptoms Integumentary: reports: No Symptoms Neurological: reports: No Symptoms Endocrine: reports: No Symptoms Physical Exam Vital Signs: Vital Signs Temperature 98.4 F 12/16/16 06:00 Pulse Rate 69 12/16/16 06:00 Respiratory Rate 26 H 12/16/16 06:00 Blood Pressure 135/54 12/16/16 06:00 O2 Sat by Pulse Oximetry (%) 98 12/15/16 21:00 Constitutional: Yes: No Distress, Calm Eyes: Yes: Conjunctiva Clear, EOM Intact HENT: Yes: Atraumatic, Normocephalic Neck: Yes: Supple, Trachea Midline Cardiovascular: Yes: Regular Rate and Rhythm Respiratory: Yes: Regular, CTA Bilaterally Gastrointestinal: Yes: Normal Bowel Sounds, Soft Renal/: Yes: WNL Musculoskeletal: Yes: WNL Extremities: Yes: WNL Edema: No Neurological: Yes: Alert, Oriented Labs: CBC, BMP 12/16/16 05:20 12/16/16 05:20 Assessment/Plan AP: DKA T2DM LAVERNE S/P renal transplant HTN Levemir 18 units at HS Novolog SS coverage CMP at 6 p.m. Nutrition consult IV hydration as necessary Will f/u
[2016-12-16] MEDS: MUPIROCIN 2% TOPICAL OINTMENT FOR DECOLONIZATION NS SCH (09:40)
[2016-12-16] MEDS: SODIUM BICARBONATE 650 MG TABLET PO SCH ×2 (09:40→23:19)
[2016-12-16] MEDS: HEPARIN NA (PORCINE) 5,000 UNITS/ML 1ML VIAL SQ SCH ×2 (09:41→23:14)
[2016-12-16] MEDS: MYCOPHENOLATE MOFETIL 500 MG TABLET PO SCH (09:45)
[2016-12-16] MEDS ORDERED: CLOPIDOGREL BISULFATE 75 MG TABLET (FP) PO SCH (10:00)
[2016-12-16] MEDS ORDERED: predniSONE 5 MG TABLET (UD) PO SCH (10:00)
[2016-12-16] MEDS ORDERED: PANTOPRAZOLE 20 MG TABLET (FP) PO SCH (10:00)
[2016-12-16] MEDS ORDERED: ENOXAPARIN NA (PORCINE) 40 MG/0.4 ML DISP.SYRIN SQ SCH (10:00)
[2016-12-16 11:14] VITALS: BMI 26.6
--- NOTE | 2016-12-16 11:14 | CON.NEP ---
Consult Consult Specialty:: Neprology (Jt/Wilfredo) Referred by:: Dr. Crump Reason for Consultation:: LAVERNE on CKD, Renal Transplant - History of Present Illness Chief Complaint: Fatigue, Lethargy History of Present Illness: This is a 71 year old Gentleman with PMhx of ESRD s/p DDRT 03-09-2016 (baseline Cr now 1.7-1.9), Hypertension, IDDM, CAD who presented with complaints of weakness and lethargy and found to be hypothermic and hypotensive with suspected sepsis syndrome and DKA with BUN/Cr of 69/3. Pt is on Tacrolimus/ Cellcept/Prednisone at home for his renal transplant. Denies any pain over the graft site, dysureia, hemeaturiea. No NSAID use. Denies any fevers. Reports compliance with meds. - History Source History Provided By: Patient Limitations to Obtaining History: No Limitations - Past Medical History Cardio/Vascular: Yes: CAD, HTN, SC Renal/: Yes: Renal Failure (s/p Renal Transpalnt 03-09-2016) - Alcohol/Substance Use Hx Alcohol Use: No - Smoking History Smoking history: Never smoked Have you smoked in the past 12 months: No Aproximately how many cigarettes per day: 0 Home Medications - Allergies Allergies/Adverse Reactions: Allergies Allergy/AdvReac Type Severity Reaction Status Date / Time No Known Allergies Allergy Verified 12/15/16 09:47 - Home Medications Home Medications: Ambulatory Orders Aspirin [Aspirin EC] 81 mg PO DAILY 12/15/16 Clopidogrel Bisulfate [Plavix -] 75 mg PO DAILY 12/15/16 Docusate Sodium [Colace -] 100 mg PO TID PRN 12/15/16 Furosemide [Lasix -] 40 mg PO DAILY 12/15/16 Insulin (Levemir) [Levemir Flexpen -] 18 units SQ HS 12/15/16 Insulin Aspart [Novolog] 14 - 20 units SQ DAILY 12/15/16 Insulin Aspart [Novolog] 18 - 20 unit SQ AC 12/15/16 Losartan Potassium 25 mg PO DAILY 12/15/16 Metoprolol Tartrate 25 mg PO BID 12/15/16 Mycophenolate Mofetil [Cellcept] 500 mg PO BID 12/15/16 Nifedipine [Procardia Xl] 30 mg PO BID 12/15/16 Pantoprazole Sodium [Protonix -] 20 mg PO DAILY 12/15/16 Prednisone 5 mg PO DAILY 12/15/16 Sennosides [Senna] 8.6 mg PO DAILY PRN 12/15/16 Sodium Bicarbonate - 1,300 mg PO BID 12/15/16 Tacrolimus [Prograf] 3 mg PO BID 12/15/16 Tamsulosin HCl [Flomax] 0.4 mg PO DAILY 12/15/16 Family Disease History - Family Disease History Family History: Unremarkable Review of Systems - Review of Systems Constitutional: reports: Lethargy. denies: Chills, Diaphoresis, Fever Eyes: reports: No Symptoms HENT: reports: No Symptoms Neck: reports: No Symptoms Cardiovascular: denies: Chest Pain, Edema, Palpitations Respiratory: denies: Cough, Hemoptysis, SOB, SOB on Exertion, Wheezing Gastrointestinal: denies: Abdominal Pain, Constipation, Diarrhea, Melena, Nausea , Vomiting Genitourinary: denies: Burning, Discharge, Flank Pain, Hematuria, Pain Musculoskeletal: denies: Back Pain Integumentary: reports: No Symptoms Neurological: reports: No Symptoms Endocrine: reports: No Symptoms Nephrology Consult - Height Height: 5 ft 8 in - Weight Weight: 174 lb 13.225 oz - BMI Body Mass Index (BMI): 26.6 - Lab Results CBC,BMP: CBC, BMP 12/16/16 05:20 12/16/16 05:20 Anion Gap: Anion Gap Anion Gap 12 (8-16) 12/16/16 05:20 - Imaging Chest X-ray: Report Reviewed Cat Scan: Report Reviewed - Physical Examination Vital Signs: Vital Signs Temperature 98.6 F 12/16/16 10:00 Pulse Rate 76 12/16/16 10:00 Respiratory Rate 20 12/16/16 10:00 Blood Pressure 142/71 12/16/16 10:00 O2 Sat by Pulse Oximetry (%) 98 12/16/16 09:00 Constitutional: Yes: Well Nourished, No Distress, Calm Eyes: Yes: Conjunctiva Clear HENT: Yes: Atraumatic, Normocephalic Neck: Yes: Supple Cardiovascular: Yes: Regular Rate and Rhythm Respiratory: Yes: Regular, CTA Bilaterally Gastrointestinal: Yes: Normal Bowel Sounds, Soft Renal/: No: Bladder Distention, CVA Tenderness - Left, CVA Tenderness - Right , [place] Present Extremities: No: Cold, Cool, Cyanosis Edema: No Neurological: Yes: Alert, Oriented Problem List - Problems (1) DKA (diabetic ketoacidoses) Code(s): E13.10 - OTH DIABETES MELLITUS WITH KETOACIDOSIS WITHOUT COMA Qualifiers: Diabetes mellitus type: other specified (including LAURA) Diabetes mellitus complication detail: without coma Qualified Code(s): E13.10 - Other specified diabetes mellitus with ketoacidosis without coma (2) Diabetes mellitus, insulin dependent (IDDM), uncontrolled Code(s): E10.65 - TYPE 1 DIABETES MELLITUS WITH HYPERGLYCEMIA (3) Renal transplant disorder Code(s): T86.10 - UNSPECIFIED COMPLICATION OF KIDNEY TRANSPLANT (4) CKD (chronic kidney disease) Code(s): N18.9 - CHRONIC KIDNEY DISEASE, UNSPECIFIED (5) ESRD (end stage renal disease) Code(s): N18.6 - END STAGE RENAL DISEASE (6) Hypertension Code(s): I10 - ESSENTIAL (PRIMARY) HYPERTENSION (7) Leukocytosis Code(s): D72.829 - ELEVATED WHITE BLOOD CELL COUNT, UNSPECIFIED (8) Hypothermia Code(s): T68.XXXA - HYPOTHERMIA, INITIAL ENCOUNTER Assessment/Plan 71 year old Gentleman with PMhx of ESRD s/p 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 #ESRD s/p Renal Transplant (baseline Cr 1.7-1.9) with acute kidney Injury Cr stable at 3 despite aggressive IVF UA w/o evidence of proteinuria or hematuria to indicate graft rejection Likely etiology of LAVERNE renal hypoperfusion in setting of DKA and suspected sepsis Check FeNa, FeUrea hold diuretics discussed case with Dr. Frazier (transplant acid bleacher at [facility]), continue Tacrolimus 3mg BID, Prednisone 5mg, hold Cellcept given suspicion of infection. Continue IVF hydration with isotonic IVF #DKA/Insulin dependent DM Continue management as per primary team IVF #Lactic acidosis/Metabolic acidosis from sepsis/hypovolemia associated with DKA IVF for the time being Continue soidum bicarb #Hypertension BP is stable off meds would hold all antihypertensives Thank you Will follow Pedro Villalobos DO
[2016-12-16] MEDS ORDERED: SODIUM CHLORIDE 1,000 ML IV SCH (12:00)
--- NOTE | 2016-12-16 12:12 | PN ---
Teaching Attending Note Name of Resident: Ba Polanco ATTENDING PHYSICIAN STATEMENT I saw and evaluated the patient. I reviewed the resident's note and discussed the case with the resident. I agree with the resident's findings and plan as documented. SUBJECTIVE: Patient seen and examined in the ICU. Awake and alert. No CP or SOB. Currently off IV Insulin drip. Seen by Endocrine this AM. Noted episodes of hypoglycemia (asymptomatic). Intake & Output 12/13/16 12/14/16 12/15/16 12/16/16 23:59 23:59 23:59 23:59 Intake Total 1505 800 Balance 1505 800 Weight 174 lb 174 lb 13.225 oz Last Vital Signs Temp Pulse Resp BP Pulse Ox 98.6 F 76 20 142/71 98 12/16/16 10:00 12/16/16 10:00 12/16/16 10:00 12/16/16 10:00 12/16/16 09:00 Active Medications Chlorhexidine Gluconate (Hibiclens For Decolonization -) 1 applic TP HS [facility] Last Admin: 12/15/16 21:59 Dose: 1 applic Clopidogrel Bisulfate (Plavix -) 75 mg PO DAILY [facility] Last Admin: 12/16/16 09:40 Dose: 75 mg Docusate Sodium (Colace -) 100 mg PO TID PRN PRN Reason: CONSTIPATION Heparin Sodium (Porcine) (Heparin -) 5,000 unit SQ BID [facility] Last Admin: 12/16/16 09:41 Dose: 5,000 unit Sodium Chloride (Normal Saline -) 1,000 mls @ 83 mls/hr IV ASDIR [facility] Insulin Aspart (Novolog Vial Sliding Scale -) 1 vial SQ TIDAC [facility] PRN Reason: Protocol Insulin Detemir (Levemir Vial) 18 units SQ HS [facility] Last Admin: 12/15/16 21:59 Dose: Not Given Mupirocin (Bactroban Ointment (For Decolonization) -) 1 applic NS BID [facility] Stop: 12/20/16 21:59 Last Admin: 12/16/16 09:40 Dose: 1 applic Pantoprazole Sodium (Protonix -) 20 mg PO DAILY [facility] Last Admin: 12/16/16 09:40 Dose: 20 mg Prednisone (Deltasone -) 5 mg PO DAILY [facility] Last Admin: 12/16/16 09:45 Dose: 5 mg Senna (Senna -) 1 tab PO DAILY PRN PRN Reason: CONSTIPATION Sodium Bicarbonate (Sodium Bicarbonate -) 1,300 mg PO BID KAT Last Admin: 12/16/16 09:40 Dose: 1,300 mg GENERAL: Awake, alert, and oriented, in no acute distress. HEENT: PERRLA, EOMI, no asymetery LUNGS: Breath sounds equal, clear to auscultation bilaterally. No wheezes, and no crackles. No accessory muscle use. HEART: Regular rate and rhythm, normal S1 and S2 without murmur, rub or gallop. ABDOMEN: Soft, nontender, nondistened EXT: trace LE edema NEURO: non focal exam Laboratory Results - last 24 hr 12/15/16 12/15/16 12/15/16 10:15 10:21 10:21 WBC RBC Hgb Hct MCV MCH MCHC RDW Plt Count MPV VBG pH 7.34 POC VBG pCO2 32.1 L POC VBG pO2 80.4 H Mixed VBG HCO3 17.0 L Sodium Potassium Chloride Carbon Dioxide Anion Gap BUN Creatinine POC Glucometer Random Glucose Hemoglobin A1c % Lactic Acid 2.4 H* Calcium Phosphorus Magnesium Ammonia Creatine Kinase Creatine Kinase Index CK-MB (CK-2) Urine Color Dkyellow Urine Appearance Slcloudy Urine pH 5.0 Ur Specific [place] 1.020 Urine Protein Negative Urine Glucose (UA) 3+ H Urine Ketones Trace H Urine Blood 2+ H Urine Nitrite Negative Urine Bilirubin Negative Urine Urobilinogen Negative Ur Leukocyte Esterase Negative Urine RBC 4 Urine WBC 1 Ur Epithelial Cells Rare Hyaline Casts 99 Urine Mucus Rare 12/15/16 12/15/16 12/15/16 11:33 13:45 14:00 WBC RBC Hgb Hct MCV MCH MCHC RDW Plt Count MPV VBG pH POC VBG pCO2 POC VBG pO2 Mixed VBG HCO3 Sodium Potassium Chloride Carbon Dioxide Anion Gap BUN Creatinine POC Glucometer > 400 Random Glucose Hemoglobin A1c % Lactic Acid 1.9 Calcium Phosphorus Magnesium Ammonia 53.37 H Creatine Kinase Creatine Kinase Index CK-MB (CK-2) Urine Color Urine Appearance Urine pH Ur Specific [place] Urine Protein Urine Glucose (UA) Urine Ketones Urine Blood Urine Nitrite Urine Bilirubin Urine Urobilinogen Ur Leukocyte Esterase Urine RBC Urine WBC Ur Epithelial Cells Hyaline Casts Urine Mucus 12/15/16 12/15/16 12/15/16 14:57 15:59 16:19 WBC RBC Hgb Hct MCV MCH MCHC RDW Plt Count MPV VBG pH POC VBG pCO2 POC VBG pO2 Mixed VBG HCO3 Sodium 142 Potassium 4.5 Chloride 108 H Carbon Dioxide 17 L Anion Gap 17 H BUN 66 H Creatinine 2.9 H POC Glucometer 291.76437 199.05081 Random Glucose 256 H D Hemoglobin A1c % Lactic Acid Calcium 7.6 L Phosphorus Magnesium Ammonia Creatine Kinase Creatine Kinase Index CK-MB (CK-2) Urine Color Urine Appearance Urine pH Ur Specific [place] Urine Protein Urine Glucose (UA) Urine Ketones Urine Blood Urine Nitrite Urine Bilirubin Urine Urobilinogen Ur Leukocyte Esterase Urine RBC Urine WBC Ur Epithelial Cells Hyaline Casts Urine Mucus 12/15/16 12/15/16 12/15/16 16:19 17:28 18:27 WBC RBC Hgb Hct MCV MCH MCHC RDW Plt Count MPV VBG pH POC VBG pCO2 POC VBG pO2 Mixed VBG HCO3 Sodium Potassium Chloride Carbon Dioxide Anion Gap BUN Creatinine POC Glucometer 167.51071 186.30224 Random Glucose Hemoglobin A1c % Lactic Acid Calcium Phosphorus 4.8 Magnesium 2.2 Ammonia Creatine Kinase Creatine Kinase Index CK-MB (CK-2) Urine Color Urine Appearance Urine pH Ur Specific [place] Urine Protein Urine Glucose (UA) Urine Ketones Urine Blood Urine Nitrite Urine Bilirubin Urine Urobilinogen Ur Leukocyte Esterase Urine RBC Urine WBC Ur Epithelial Cells Hyaline Casts Urine Mucus 12/15/16 12/15/16 12/15/16 18:49 20:37 22:29 WBC RBC Hgb Hct MCV MCH MCHC RDW Plt Count MPV VBG pH POC VBG pCO2 POC VBG pO2 Mixed VBG HCO3 Sodium 141 Potassium 4.5 Chloride 111 H Carbon Dioxide 18 L Anion Gap 12 BUN 65 H Creatinine 3.0 H POC Glucometer 244.63482 226.72032 Random Glucose 206 H Hemoglobin A1c % Lactic Acid Calcium 7.7 L Phosphorus Magnesium Ammonia Creatine Kinase Creatine Kinase Index CK-MB (CK-2) Urine Color Urine Appearance Urine pH Ur Specific [place] Urine Protein Urine Glucose (UA) Urine Ketones Urine Blood Urine Nitrite Urine Bilirubin Urine Urobilinogen Ur Leukocyte Esterase Urine RBC Urine WBC Ur Epithelial Cells Hyaline Casts Urine Mucus 12/16/16 12/16/16 12/16/16 01:47 05:20 05:20 WBC 12.2 H RBC 3.85 L Hgb 11.5 L Hct 35.0 L MCV 91.0 MCH 30.0 MCHC 32.9 RDW 14.0 Plt Count 167 MPV 7.7 VBG pH POC VBG pCO2 POC VBG pO2 Mixed VBG HCO3 Sodium 143 Potassium 4.2 Chloride 112 H Carbon Dioxide 19 L Anion Gap 12 BUN 60 H Creatinine 3.1 H POC Glucometer 167.40827 Random Glucose 59 L D Hemoglobin A1c % Lactic Acid Calcium 7.4 L Phosphorus 4.3 Magnesium 2.1 Ammonia Creatine Kinase 174 Creatine Kinase Index 1.7 CK-MB (CK-2) 3.095 Urine Color Urine Appearance Urine pH Ur Specific [place] Urine Protein Urine Glucose (UA) Urine Ketones Urine Blood Urine Nitrite Urine Bilirubin Urine Urobilinogen Ur Leukocyte Esterase Urine RBC Urine WBC Ur Epithelial Cells Hyaline Casts Urine Mucus 12/16/16 12/16/16 12/16/16 05:20 05:20 06:14 WBC RBC Hgb Hct MCV MCH MCHC RDW Plt Count MPV VBG pH POC VBG pCO2 POC VBG pO2 Mixed VBG HCO3 Sodium Potassium Chloride Carbon Dioxide Anion Gap BUN Creatinine POC Glucometer 62.75020 Random Glucose Hemoglobin A1c % 8.4 H D Lactic Acid Calcium Phosphorus Cancelled Magnesium Cancelled Ammonia Creatine Kinase Cancelled Creatine Kinase Index CK-MB (CK-2) Urine Color Urine Appearance Urine pH Ur Specific [place] Urine Protein Urine Glucose (UA) Urine Ketones Urine Blood Urine Nitrite Urine Bilirubin Urine Urobilinogen Ur Leukocyte Esterase Urine RBC Urine WBC Ur Epithelial Cells Hyaline Casts Urine Mucus 12/16/16 12/16/16 07:12 11:25 WBC RBC Hgb Hct MCV MCH MCHC RDW Plt Count MPV VBG pH POC VBG pCO2 POC VBG pO2 Mixed VBG HCO3 Sodium Potassium Chloride Carbon Dioxide Anion Gap BUN Creatinine POC Glucometer 80.25278 159.61960 Random Glucose Hemoglobin A1c % Lactic Acid Calcium Phosphorus Magnesium Ammonia Creatine Kinase Creatine Kinase Index CK-MB (CK-2) Urine Color Urine Appearance Urine pH Ur Specific [place] Urine Protein Urine Glucose (UA) Urine Ketones Urine Blood Urine Nitrite Urine Bilirubin Urine Urobilinogen Ur Leukocyte Esterase Urine RBC Urine WBC Ur Epithelial Cells Hyaline Casts Urine Mucus IMP: Hyperglycemia/DKA S?P renal transplant February 2016 HTN DM II (?) Resolving Viral Illness IVF Glycemic control O2 as needed PO as tolerated VTE prophylaxis D/W Renal -> Cellcept to be held after discussion with transplant butter liquefier Dr Huston Critical care time spent in reviewing chart, evaluating patient and formulating plan 35 min
--- NOTE | 2016-12-16 13:22 | PN ---
Teaching Attending Note Name of Resident: Ana Robertson ATTENDING PHYSICIAN STATEMENT I saw and evaluated the patient. I reviewed the resident's note and discussed the case with the resident. I agree with the resident's findings and plan as documented. SUBJECTIVE: denies any fever or chills. has no SOB . feels much better than before . reports sore throat and runny nose x 2 dyas prior to presentation . non productive cough . OBJECTIVE: NAD , MMM. erythematous oropharynx. no exudate seen despite limited exam CV: RRR lUngs : bibasilar crackles Ext : no edema And : soft, NT, ND , NL BS A/P : 71 Y/O gentleman with h/o ESRD s/p renal transplant , CAD , BPH ,and IDDM who presented with fatigue and increased thirst, and was found to have LAVERNE and DKA 1- DKA : likely triggered by URI. AG closed and bicarb has improved after treating with insulin gtt - Gluc 60 in am . received 18 units of levemir last night - follow sugar today, to decide on HS dose of levemir - dc HS coverage of SSI to avoid am hypoglycemia 2- LAVERNE: base line 1.7-1.9. possible prerenal injury from hypovolemia, can't R/o ATN, or other etiologies in this transplant patient - cont IVF - check renal US to r/o obstruction - follow feNA , U na - hold cellcept . cont prednisone and Tacrilimus - hold losartan - appreciate renal input 3- HTN: was hypotensive yesterday. No hypertensive - resume Nifedipine - if BP remains stable , will resume metoprolol tomorrow 4- h/o CAD : cont plavix . - BB as above Tx to Med Surg
--- NOTE | 2016-12-16 14:31 | PN ---
Physical Exam: SUBJECTIVE: Patient seen and examined this morning. Pt is sitting up comfortably in bed eating breakfast. Pt denies any overnight events including fevers, chills, nausea, vomiting, headache, vision changes. Pt states he feels better since admission, however he states he is "depressed" due to his brother' s critical health condition. Pt has no other acute issues at this time. OBJECTIVE: Vital Signs Period Temp Pulse Resp BP Sys/Esposito Pulse Ox Last 24 Hr 97.7 F-98.8 F 64-80 16-32 87-142/43-82 98-99 GENERAL: The patient is awake, alert, not altered, in no acute distress. HEAD: Normal with no signs of trauma. EYES: PERRL, extraocular movements intact, sclera anicteric, conjunctiva clear. No ptosis. ENT: Oropharynx without erythema, adenopathy, or exudate NECK: Trachea midline LUNGS: Breath sounds equal, clear to auscultation bilaterally, no wheezes, no crackles, no accessory muscle use. HEART: Regular rate and rhythm, S1, S2 without murmur, rub or gallop. ABDOMEN: Soft, nontender, nondistended, normoactive bowel sounds, no guarding, no rebound, no masses EXTREMITIES: 2+ L radial pulse, R radial pulse with palpable thrill distal to dialysis graft; skin warm, well-perfused. Slight R LE edema compared to L. NEUROLOGICAL: Decreased sensation to light touch in b/l feet and R ankle. 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 Muscle strength 5/5 in UE and LE. Normal speech. Intention tremor present in b/l hands. PSYCH: Normal mood, normal affect. SKIN: Warm, dry, normal turgor; discoloration over R forearm at site of dialysis graft. No lesions or ulcerations noted Laboratory Results - last 24 hr 12/15/16 12/15/16 12/15/16 14:00 14:57 15:59 WBC RBC Hgb Hct MCV MCH MCHC RDW Plt Count MPV Sodium Potassium Chloride Carbon Dioxide Anion Gap BUN Creatinine POC Glucometer 291.93738 199.40742 Random Glucose Hemoglobin A1c % Lactic Acid 1.9 Calcium Phosphorus Magnesium Creatine Kinase Creatine Kinase Index CK-MB (CK-2) 12/15/16 12/15/16 12/15/16 16:19 16:19 17:28 WBC RBC Hgb Hct MCV MCH MCHC RDW Plt Count MPV Sodium 142 Potassium 4.5 Chloride 108 H Carbon Dioxide 17 L Anion Gap 17 H BUN 66 H Creatinine 2.9 H POC Glucometer 167.11903 Random Glucose 256 H D Hemoglobin A1c % Lactic Acid Calcium 7.6 L Phosphorus 4.8 Magnesium 2.2 Creatine Kinase Creatine Kinase Index CK-MB (CK-2) 12/15/16 12/15/16 12/15/16 18:27 18:49 20:37 WBC RBC Hgb Hct MCV MCH MCHC RDW Plt Count MPV Sodium 141 Potassium 4.5 Chloride 111 H Carbon Dioxide 18 L Anion Gap 12 BUN 65 H Creatinine 3.0 H POC Glucometer 186.19990 244.25332 Random Glucose 206 H Hemoglobin A1c % Lactic Acid Calcium 7.7 L Phosphorus Magnesium Creatine Kinase Creatine Kinase Index CK-MB (CK-2) 12/15/16 12/16/16 12/16/16 22:29 01:47 05:20 WBC 12.2 H RBC 3.85 L Hgb 11.5 L Hct 35.0 L MCV 91.0 MCH 30.0 MCHC 32.9 RDW 14.0 Plt Count 167 MPV 7.7 Sodium Potassium Chloride Carbon Dioxide Anion Gap BUN Creatinine POC Glucometer 226.98967 167.20031 Random Glucose Hemoglobin A1c % Lactic Acid Calcium Phosphorus Magnesium Creatine Kinase Creatine Kinase Index CK-MB (CK-2) 12/16/16 12/16/16 12/16/16 05:20 05:20 05:20 WBC RBC Hgb Hct MCV MCH MCHC RDW Plt Count MPV Sodium 143 Potassium 4.2 Chloride 112 H Carbon Dioxide 19 L Anion Gap 12 BUN 60 H Creatinine 3.1 H POC Glucometer Random Glucose 59 L D Hemoglobin A1c % 8.4 H D Lactic Acid Calcium 7.4 L Phosphorus 4.3 Cancelled Magnesium 2.1 Cancelled Creatine Kinase 174 Cancelled Creatine Kinase Index 1.7 CK-MB (CK-2) 3.095 12/16/16 12/16/16 12/16/16 06:14 07:12 11:25 WBC RBC Hgb Hct MCV MCH MCHC RDW Plt Count MPV Sodium Potassium Chloride Carbon Dioxide Anion Gap BUN Creatinine POC Glucometer 62.29265 80.21211 159.43394 Random Glucose Hemoglobin A1c % Lactic Acid Calcium Phosphorus Magnesium Creatine Kinase Creatine Kinase Index CK-MB (CK-2) Active Medications Generic Name Dose Route Start Last Admin Trade Name Freq PRN Reason Stop Dose Admin Chlorhexidine Gluconate 1 applic 12/15/16 22:00 12/15/16 21:59 Hibiclens For Decolonization - TP 1 applic HS KAT Administration Clopidogrel Bisulfate 75 mg 12/16/16 10:00 12/16/16 09:40 Plavix - PO 75 mg DAILY KAT Administration Docusate Sodium 100 mg 12/15/16 17:47 Colace - PO TID PRN CONSTIPATION Heparin Sodium (Porcine) 5,000 unit 12/15/16 22:00 12/16/16 09:41 Heparin - SQ 5,000 unit BID KAT Administration Sodium Chloride 1,000 mls @ 83 mls/hr 12/16/16 12:00 Normal Saline - IV ASDIR KAT Insulin Aspart 1 vial 12/16/16 16:30 Novolog Vial Sliding Scale - SQ TIDAC [facility] Protocol Insulin Detemir 18 units 12/15/16 22:00 12/15/16 21:59 Levemir Vial SQ Not Given HS KAT Mupirocin 1 applic 12/15/16 22:00 12/16/16 09:40 Bactroban Ointment (For Decolonization) - NS 12/20/16 21:59 1 applic BID KAT Administration Nifedipine 30 mg 12/16/16 22:00 Procardia Xl - PO BID [facility] Non-Formulary Medication 1 each 12/16/16 22:00 Patient's Own Med PO BID KAT Pantoprazole Sodium 20 mg 12/16/16 10:00 12/16/16 09:40 Protonix - PO 20 mg DAILY KAT Administration Prednisone 5 mg 12/16/16 10:00 12/16/16 09:45 Deltasone - PO 5 mg DAILY KAT Administration Senna 1 tab 12/15/16 17:47 Senna - PO DAILY PRN CONSTIPATION Sodium Bicarbonate 1,300 mg 12/15/16 22:00 12/16/16 09:40 Sodium Bicarbonate - PO 1,300 mg BID KAT Administration ASSESSMENT/PLAN: 71 y/o male pmhx HTN, Type 2 DM, ESRD s/p kidney transplant in 2016, CAD s/p stents admitted for DKA Endocrine: -Type 2 DM on insulin; per pt has been taking his insulin as directed. BG in ED 473, AG 17. VBG revealed pH 7.34; UA + for ketones; 2+ serum acetone. DKA likely 2/2 viral illness vs renal failure vs emotional stress. CXR and head CT unremarkable. WBC 10.3 on admission -> 12.2 today. Blood and urine cx pending. 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 -Pt denies urinary complaints -Per chart/laundry pricing clerk at [facility], baseline creatinine 1.4-1.7 -On admission creatinine >3.0, BUN 60; Most likely LAVERNE vs renal failure/ transplant rejection -Cellcept and tacrolimus on hold 2/2 possible infection -Cont fluids -Monitor for improvement in creatinine -Appreciate nephrology recs Neuro: -Pt alert, not altered; no focal deficits noted -Intention tremor in b/l hands; chronic per pt and follows with [place] neurologist Pulmonary: -Pt tachypneic on admission -Currently stable with O2 sat 98% FEN: -1/2NS @ 75mls/hr -Continue to monitor electrolytes -Diabetic diet Prophylaxis: -Heparin SQ for DVT -Protonix 20 PO Dispo: -Stable to transfer to medical floor Visit type - Emergency Visit Emergency Visit: Yes ED Registration Date: 12/15/16 Care time: The patient presented to the Emergency Department on the above date and was hospitalized for further evaluation of their emergent condition. - New Patient This patient is new to me today: Yes Date on this admission: 12/16/16 - Critical Care Critical Care patient: Yes Total Critical Care Time (in minutes): 40 Critical Care Statement: The care of this patient involved high complexity decision making to prevent further life threatening deterioration of the patient 's condition and/or to evalute & treat vital organ system(s) failure or risk of failure.
--- NOTE | 2016-12-16 14:46 | EKG ---
Test Reason : Blood Pressure : / mmHG Vent. Rate : 059 BPM Atrial Rate : 059 BPM P-R Int : 184 ms QRS Dur : 086 ms QT Int : 512 ms P-R-T Axes : 054 -29 053 degrees QTc Int : 506 ms SINUS BRADYCARDIA POSSIBLE ANTERIOR INFARCT (CITED ON OR BEFORE 15-DEC-2016) PROLONGED QT ABNORMAL ECG WHEN COMPARED WITH ECG OF 15-DEC-2016 09:51, PREVIOUS ECG HAS UNDETERMINED RHYTHM, NEEDS REVIEW ST NO LONGER ELEVATED IN INFERIOR LEADS NON-SPECIFIC CHANGE IN ST SEGMENT IN ANTERIOR LEADS QT HAS SHORTENED Confirmed by PRATIK MURILLO MD ([id number]) on 12/16/2016 2:46:07 PM Referred By: Confirmed By:PRATIK MURILLO MD
[2016-12-16] MEDS ORDERED: HEMOQUE TEST 1 EACH EACH ONE (15:16)
[2016-12-16] MEDS ORDERED: NIFEdipine 10 MG CAPSULE (FP) PO SCH (15:30)
[2016-12-16] MEDS ORDERED: NIFEdipine E.R. 30 MG TABLET (FP) PO SCH ×2 (15:45→22:00)
[2016-12-16] MEDS ORDERED: INSULIN SLIDING SCALE (NOVOLOG) 1 VIAL SQ SCH (16:30)
[2016-12-16 16:34] LABS: ANION GAP 11 (8-16); CALCIUM 7.6 mg/dL (8.5-10.1); CO2 18 mmol/L (21-32); CREATININE 3.3 mg/dL (0.7-1.3)
[2016-12-16 16:38] LABS: GLUCOSE,RANDOM 408 mg/dL (74-106)
[2016-12-16] MEDS ORDERED: INSULIN (NOVOLOG) ASPART 100 UNITS/ML 10ML VIAL SQ ONE (17:00)
--- NOTE | 2016-12-16 17:57 | PN ---
Physical Exam: SUBJECTIVE: Patient seen and examined this AM. No complaints. States that he may have had possible URI symptoms before presentation. No fevers, no chills, no CP, no SOB. OBJECTIVE: Vital Signs Period Temp Pulse Resp BP Sys/Esposito Pulse Ox Last 24 Hr 97.8 F-98.8 F 64-92 18-32 87-156/48-97 98-99 GENERAL: AAOx3, in NAD, w/ bear hugger HEENT: PERRLA, EOMi, No pharyngeal exudate, no cervical LAD LUNG: CTABL, no labored respirations CV: S1, S2, RRR ABD: Soft, NT, ND, hypoactive BS MSK: No edema, no erythema NEURO: CN 2-12 intact, sensation equal and intact in face/body, MSK 5+ in all extremities Laboratory Results - last 24 hr 12/15/16 12/15/16 12/15/16 14:57 16:19 17:28 WBC RBC Hgb Hct MCV MCH MCHC RDW Plt Count MPV Sodium Potassium Chloride Carbon Dioxide Anion Gap BUN Creatinine POC Glucometer 291.51032 167.48119 Random Glucose Hemoglobin A1c % Calcium Phosphorus 4.8 Magnesium 2.2 Creatine Kinase Creatine Kinase Index CK-MB (CK-2) 12/15/16 12/15/16 12/15/16 18:27 18:49 20:37 WBC RBC Hgb Hct MCV MCH MCHC RDW Plt Count MPV Sodium 141 Potassium 4.5 Chloride 111 H Carbon Dioxide 18 L Anion Gap 12 BUN 65 H Creatinine 3.0 H POC Glucometer 186.24937 244.49490 Random Glucose 206 H Hemoglobin A1c % Calcium 7.7 L Phosphorus Magnesium Creatine Kinase Creatine Kinase Index CK-MB (CK-2) 12/15/16 12/16/16 12/16/16 22:29 01:47 05:20 WBC 12.2 H RBC 3.85 L Hgb 11.5 L Hct 35.0 L MCV 91.0 MCH 30.0 MCHC 32.9 RDW 14.0 Plt Count 167 MPV 7.7 Sodium Potassium Chloride Carbon Dioxide Anion Gap BUN Creatinine POC Glucometer 226.63193 167.15217 Random Glucose Hemoglobin A1c % Calcium Phosphorus Magnesium Creatine Kinase Creatine Kinase Index CK-MB (CK-2) 12/16/16 12/16/16 12/16/16 05:20 05:20 05:20 WBC RBC Hgb Hct MCV MCH MCHC RDW Plt Count MPV Sodium 143 Potassium 4.2 Chloride 112 H Carbon Dioxide 19 L Anion Gap 12 BUN 60 H Creatinine 3.1 H POC Glucometer Random Glucose 59 L D Hemoglobin A1c % 8.4 H D Calcium 7.4 L Phosphorus 4.3 Cancelled Magnesium 2.1 Cancelled Creatine Kinase 174 Cancelled Creatine Kinase Index 1.7 CK-MB (CK-2) 3.095 12/16/16 12/16/16 12/16/16 06:14 07:12 11:25 WBC RBC Hgb Hct MCV MCH MCHC RDW Plt Count MPV Sodium Potassium Chloride Carbon Dioxide Anion Gap BUN Creatinine POC Glucometer 62.78122 80.28534 159.38204 Random Glucose Hemoglobin A1c % Calcium Phosphorus Magnesium Creatine Kinase Creatine Kinase Index CK-MB (CK-2) 12/16/16 12/16/16 12/16/16 15:21 15:45 16:50 WBC RBC Hgb Hct MCV MCH MCHC RDW Plt Count MPV Sodium 137 Potassium 4.8 Chloride 108 H Carbon Dioxide 18 L Anion Gap 11 BUN 62 H Creatinine 3.3 H POC Glucometer > 400 354.28366 Random Glucose 408 H* D Hemoglobin A1c % Calcium 7.6 L Phosphorus Magnesium Creatine Kinase Creatine Kinase Index CK-MB (CK-2) Active Medications Generic Name Dose Route Start Last Admin Trade Name Freq PRN Reason Stop Dose Admin Chlorhexidine Gluconate 1 applic 12/15/16 22:00 12/15/16 21:59 Hibiclens For Decolonization - TP 1 applic HS KAT Administration Clopidogrel Bisulfate 75 mg 12/16/16 10:00 12/16/16 09:40 Plavix - PO 75 mg DAILY KAT Administration Docusate Sodium 100 mg 12/15/16 17:47 Colace - PO TID PRN CONSTIPATION Heparin Sodium (Porcine) 5,000 unit 12/15/16 22:00 12/16/16 09:41 Heparin - SQ 5,000 unit BID KAT Administration Sodium Chloride 1,000 mls @ 83 mls/hr 12/16/16 12:00 12/16/16 13:00 Normal Saline - IV 83 mls/hr ASDIR KAT Administration Insulin Aspart 1 vial 12/16/16 16:30 12/16/16 15:30 Novolog Vial Sliding Scale - SQ 12 units TIDAC KAT Administration Protocol Insulin Aspart 10 units 12/16/16 17:00 12/16/16 17:35 Novolog Vial SQ 12/16/16 17:01 10 units ONCE ONE Administration Protocol Insulin Detemir 18 units 12/15/16 22:00 12/15/16 21:59 Levemir Vial SQ Not Given HS KAT Mupirocin 1 applic 12/15/16 22:00 12/16/16 09:40 Bactroban Ointment (For Decolonization) - NS 12/20/16 21:59 1 applic BID KAT Administration Nifedipine 30 mg 12/16/16 22:00 Procardia Xl - PO BID KAT Nifedipine 30 mg 12/16/16 15:45 12/16/16 15:45 Procardia Xl - PO 30 mg DAILY KAT Administration Non-Formulary Medication 1 each 12/16/16 22:00 Patient's Own Med PO BID KAT Pantoprazole Sodium 20 mg 12/16/16 10:00 12/16/16 09:40 Protonix - PO 20 mg DAILY KAT Administration Prednisone 5 mg 12/16/16 10:00 12/16/16 09:45 Deltasone - PO 5 mg DAILY KAT Administration Senna 1 tab 12/15/16 17:47 Senna - PO DAILY PRN CONSTIPATION Sodium Bicarbonate 1,300 mg 12/15/16 22:00 12/16/16 09:40 Sodium Bicarbonate - PO 1,300 mg BID KAT Administration ASSESSMENT/PLAN: Pt is a 71yo M with a PMHx of IDDM2, ESRD (s/p transplant) who presented to the ER by EMS after an episode of weakness and lethargy and found to have a glucose >400. He was found to be hypothermic and hypotensive with suspected sepsis and DKA. He received IVNS Bolus and insulin drip in the ICU. # Diabetic Ketoacidosis vs Hyperglycemia - ?Viral illness predisposition - Gap closed - Started on home Levemir 18 + SSI - Monitor BMP + glucose - Endocrine states resume current management # LAVERNE on CKD - Cr stable after aggressive fluids - UA shows no proteinuria/hematuria to indicate rejection - Renal US shows no obstruction - Check FeNA, FeUrea - Hold diuretics - Renally dose all meds # Hx of ESRD s/p renal transplant - Continue Prednisone 5mg QD, pts Tacrolimus 3mg BID is nonformulary, must bring from home - Discontinued Cellcept given infection suspicion - Continue sodium bicarb 1300 BID # Leukocytosis - Prednisone vs Reactive vs Infectious - Blood cx / Urine cx pending - Monitor CBC # HTN - Started Nifedipine 30mg BID - Hold metoprolol, can continue if still HTN - Hold Losartan for LAVERNE # Hx of CAD - Continue Plavix 75mg QD - Hold Statin for Rhabdo - Hold ASA 81mg QD until baseline Cr obtained # Hx of BPH - Hold Flomax for HTN # FEN - Fluids: On D5 1/2 NS @ 250cc/hr - Electrolytes: BMP Q4 - Nutrition: NPO until off insulin drip # Prophylaxis - DVT: Heparin SQ 5000 BID - GI: Protonix 20mg QD - Deconditioning: PT when drip is d/cd # Code Status - Pt states he is DNI not DNR # Disposition - Pt to be transferred to floors Visit type - Emergency Visit Emergency Visit: No - New Patient This patient is new to me today: No - Critical Care Critical Care patient: No - Discharge Referral Referred to [facility] Med P.C.: No
[2016-12-16] MEDS ORDERED: INSULIN (NOVOLOG) ASPART 100 UNITS/ML 10ML VIAL ONE (20:27)
[2016-12-16] MEDS ORDERED: SENNOSIDES 8.6MG TABLET (FP) PO PRN (21:17)
[2016-12-16] MEDS ORDERED: DOCUSATE SODIUM 100 MG CAPSULE (FP) PO PRN (21:17)
[2016-12-16] MEDS ORDERED: METOPROLOL TARTRATE 25 MG TABLET (FP) PO SCH (22:00)
[2016-12-16] MEDS ORDERED: MUPIROCIN 2% TOPICAL OINTMENT FOR DECOLONIZATION NS SCH (22:00)
[2016-12-16] MEDS ORDERED: CHLORHEXIDINE GLUCONATE 4% CLEANSER FOR DECOLONIZATION TP SCH (22:00)
[2016-12-16] MEDS: SODIUM CHLORIDE 1,000 ML IV SCH (22:00)
[2016-12-16] MEDS ORDERED: INSULIN DETEMIR 100 UNITS/ML MDV SQ SCH (22:00)
[2016-12-16] MEDS: NIFEdipine E.R. 30 MG TABLET (FP) PO SCH (23:17)
[2016-12-16] MEDS: TACROLIMUS ANHYDROUS 1 MG CAPSULE (NF) PO SCH (23:18)
[2016-12-17] MEDS: INSULIN SLIDING SCALE (NOVOLOG) 1 VIAL SQ SCH ×3 (06:05→17:38)
[2016-12-17 08:35] LABS: MCH 30.1 pg (25.7-33.7); MEAN CELL VOLUME 91.1 fl (80-96); MEAN PLT VOLUME 7.8 fl (7.5-11.1); PLATELET COUNT 147 K/MM3 (134-434); RDW 13.7 % (11.9-15.9)
--- NOTE | 2016-12-17 09:00 | PN ---
Physical Exam: SUBJECTIVE: Patient seen and examined this AM. Since patient came up from ICU pt has been midlly confused, unsure of location, tried to get OOB, removed IVs. Pt was AAO x2, not agitated this AM on exam. No focal neuro deficits. Pt has baseline tremors (could be due to side effect of tacrolimus) OBJECTIVE: Vital Signs Period Temp Pulse Resp BP Sys/Esposito Pulse Ox Last 24 Hr 98.6 F-99.2 F 76-95 18-28 130-156/53-97 96-98 GENERAL: AAOx2, in NAD HEENT: PERRLA, EOMi, No pharyngeal exudate, no cervical LAD LUNG: CTABL, no labored respirations CV: S1, S2, RRR ABD: Soft, NT, ND, hypoactive BS MSK: No edema, no erythema NEURO: CN 2-12 intact, sensation equal and intact in face/body, MSK 5+ in all extremities Laboratory Results - last 24 hr 12/16/16 12/16/16 12/16/16 05:20 11:25 15:21 WBC RBC Hgb Hct MCV MCH MCHC RDW Plt Count MPV Sodium Potassium Chloride Carbon Dioxide Anion Gap BUN Creatinine POC Glucometer 159.63652 > 400 Random Glucose Hemoglobin A1c % 8.4 H D Calcium 12/16/16 12/16/16 12/16/16 15:45 16:50 18:15 WBC RBC Hgb Hct MCV MCH MCHC RDW Plt Count MPV Sodium 137 Potassium 4.8 Chloride 108 H Carbon Dioxide 18 L Anion Gap 11 BUN 62 H Creatinine 3.3 H POC Glucometer 354.82338 169.17661 Random Glucose 408 H* D Hemoglobin A1c % Calcium 7.6 L 12/16/16 12/17/16 12/17/16 23:15 06:04 07:35 WBC 9.0 RBC 3.84 L Hgb 11.5 L Hct 34.9 L MCV 91.1 MCH 30.1 MCHC 33.0 RDW 13.7 Plt Count 147 MPV 7.8 Sodium Potassium Chloride Carbon Dioxide Anion Gap BUN Creatinine POC Glucometer 216 212 Random Glucose Hemoglobin A1c % Calcium Active Medications Generic Name Dose Route Start Last Admin Trade Name Freq PRN Reason Stop Dose Admin Clopidogrel Bisulfate 75 mg 12/17/16 10:00 Plavix - PO DAILY KAT Docusate Sodium 100 mg 12/16/16 21:17 Colace - PO TID PRN CONSTIPATION Heparin Sodium (Porcine) 5,000 unit 12/16/16 22:00 12/16/16 23:14 Heparin - SQ 5,000 unit BID KAT Administration Sodium Chloride 1,000 mls @ 83 mls/hr 12/16/16 21:17 12/16/16 22:00 Normal Saline - IV Not Given ASDIR KTA Insulin Aspart 1 vial 12/17/16 07:00 12/17/16 06:05 Novolog Vial Sliding Scale - SQ 4 units TIDAC KAT Administration Protocol Insulin Detemir 18 units 12/16/16 22:00 12/16/16 23:16 Levemir Vial SQ 18 units HS KAT Administration Nifedipine 30 mg 12/16/16 22:00 12/16/16 23:17 Procardia Xl - PO 30 mg BID KAT Administration Pantoprazole Sodium 20 mg 12/17/16 10:00 Protonix - PO DAILY KAT Prednisone 5 mg 12/17/16 10:00 Deltasone - PO DAILY KAT Senna 1 tab 12/16/16 21:17 Senna - PO DAILY PRN CONSTIPATION Sodium Bicarbonate 1,300 mg 12/16/16 22:00 12/16/16 23:19 Sodium Bicarbonate - PO 1,300 mg BID KAT Administration Tacrolimus 3 mg 12/16/16 22:00 12/16/16 23:18 Prograf (Non-Formulary) PO 3 mg BID KAT Administration ASSESSMENT/PLAN: Pt is a 71yo M with a PMHx of IDDM2, ESRD (s/p transplant) who presented to the ER by EMS after an episode of weakness and lethargy and found to have a glucose >400. He was found to be hypothermic and hypotensive with suspected sepsis and DKA. He received IVNS Bolus and insulin drip in the ICU. # Acute Delirium - Head CT - negative - Unlikely due to metabolic derrangements - D/c vital checks and FSG during the night - Family will visit patient tonight - Keep oriented # Diabetic Ketoacidosis vs Hyperglycemia - Likely due to improper insulin usage - Gap closed - Started on home Levemir 18 + SSI - Monitor BMP + glucose - Endocrine states resume current management - Will speak to SW about VNA to manage meds # LAVERNE on CKD - Cr improved after fluids, likely pre-renal - UA shows no proteinuria/hematuria to indicate rejection - Renal US shows no obstruction - Hold diuretics - Renally dose all meds # Hx of ESRD s/p renal transplant - Continue Prednisone 5mg QD, pts Tacrolimus 3mg BID is nonformulary, must bring from home - Discontinued Cellcept given infection suspicion - Continue sodium bicarb 1300 BID # Leukocytosis - resolved - Likely reactive (pt also on prednisone) - Blood cx / Urine cx prelim no growth - Monitor CBC # HTN - Continue Nifedipine 30mg BID - Continue Metoprolol - Hold Losartan for LAVERNE # Hx of CAD - Continue Plavix 75mg QD - Hold ASA 81mg QD until baseline Cr obtained # Hx of BPH - Held Flomax due to presenting low BP - Good UOP, will continue at discharge # FEN - Fluids: On NS 83cc/hr - Electrolytes: BMP Q4 - Nutrition: Diabetic diet # Prophylaxis - DVT: Heparin SQ 5000 BID - GI: Protonix 20mg QD - Deconditioning: PT ordered # Code Status - Pt states he is DNI not DNR # Disposition - Likely d/c tomorrow if LAVERNE continues to improve Visit type - Emergency Visit Emergency Visit: No - New Patient This patient is new to me today: No - Critical Care Critical Care patient: No - Discharge Referral Referred to [facility] Med P.C.: No
[2016-12-17] MEDS: HEPARIN NA (PORCINE) 5,000 UNITS/ML 1ML VIAL SQ SCH ×2 (09:20→21:47)
[2016-12-17] MEDS: NIFEdipine E.R. 30 MG TABLET (FP) PO SCH ×2 (09:20→21:48)
[2016-12-17] MEDS: PANTOPRAZOLE 20 MG TABLET (FP) PO SCH (09:20)
[2016-12-17] MEDS: predniSONE 5 MG TABLET (UD) PO SCH (09:20)
[2016-12-17] MEDS: SODIUM BICARBONATE 650 MG TABLET PO SCH ×2 (09:20→21:48)
[2016-12-17] MEDS: CLOPIDOGREL BISULFATE 75 MG TABLET (FP) PO SCH (09:21)
[2016-12-17] MEDS ORDERED: PT OWN MED DRAWER 7, Y5N ONE ×2 (09:25→20:30)
[2016-12-17] MEDS: TACROLIMUS ANHYDROUS 1 MG CAPSULE (NF) PO SCH ×2 (09:28→21:49)
[2016-12-17 10:07] LABS: CALCIUM 8.2 mg/dL (8.5-10.1); CREATININE 2.6 mg/dL (0.7-1.3); GLUCOSE,RANDOM 137 mg/dL (74-106)
[2016-12-17 10:37] LABS: ANION GAP 10 (8-16); CO2 21 mmol/L (21-32)
--- NOTE | 2016-12-17 10:40 | PN ---
Progress Note (short form) - Note Progress Note: Renal Follow up for Renal Transplant with LAVERNE Pt seen and examined at the bedside sitting in the chair, no acute complaints reports good urine output no sob, chest pain, fever, chills, abd pain, N/V/D Vital Signs Temperature 99.2 F 12/17/16 06:00 Pulse Rate 88 12/17/16 06:00 Respiratory Rate 18 12/17/16 06:00 Blood Pressure 130/53 12/17/16 06:00 O2 Sat by Pulse Oximetry (%) 96 12/16/16 21:00 Gen: NAD, awake and alert CVS: RRR, No M/R Lungs: CTA, no rales or wheeze Abd: Soft NT/ND Ext: Trace to 1+ edema CBC, BMP 12/17/16 07:35 12/17/16 07:35 Laboratory Tests 12/17/16 12/17/16 07:35 07:35 MCV 91.1 Calcium 8.2 L Current Medications Clopidogrel Bisulfate (Plavix -) 75 mg PO DAILY [facility] Last Admin: 12/17/16 09:21 Dose: 75 mg Docusate Sodium (Colace -) 100 mg PO TID PRN PRN Reason: CONSTIPATION Heparin Sodium (Porcine) (Heparin -) 5,000 unit SQ BID [facility] Last Admin: 12/17/16 09:20 Dose: 5,000 unit Sodium Chloride (Normal Saline -) 1,000 mls @ 83 mls/hr IV ASDIR [facility] Last Admin: 12/16/16 22:00 Dose: Not Given Insulin Aspart (Novolog Vial Sliding Scale -) 1 vial SQ TIDAC [facility] PRN Reason: Protocol Last Admin: 12/17/16 06:05 Dose: 4 units Insulin Detemir (Levemir Vial) 18 units SQ HS [facility] Last Admin: 12/16/16 23:16 Dose: 18 units Nifedipine (Procardia Xl -) 30 mg PO BID [facility] Last Admin: 12/17/16 09:20 Dose: 30 mg Pantoprazole Sodium (Protonix -) 20 mg PO DAILY [facility] Last Admin: 12/17/16 09:20 Dose: 20 mg Prednisone (Deltasone -) 5 mg PO DAILY [facility] Last Admin: 12/17/16 09:20 Dose: 5 mg Senna (Senna -) 1 tab PO DAILY PRN PRN Reason: CONSTIPATION Sodium Bicarbonate (Sodium Bicarbonate -) 1,300 mg PO BID [facility] Last Admin: 12/17/16 09:20 Dose: 1,300 mg Tacrolimus (Prograf (Non-Formulary)) 3 mg PO BID [facility] Last Admin: 12/17/16 09:28 Dose: 3 mg A/P 71 year old Gentleman with PMhx of ESRD s/p 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 #ESRD s/p Renal Transplant (baseline Cr 1.7-1.9) with acute kidney Injury Renal function now showing improvement and pt reports good urine output US report noted, no signs of obstruction would continue isotonic saline continue tacolimus, Prednisone Trend BUN/Cr and electrolytes #DKA/Insulin dependent DM Continue management as per primary team IVF #Lactic acidosis/Metabolic acidosis from sepsis/hypovolemia associated with DKA no resolved #Sepsis r/o bacterial infection vs. viral syndrome cultures collected, no growth reported to date not currently on Abx #Hypertension on Nifedpine Pedro Villalobos DO Problem List - Problems (1) DKA (diabetic ketoacidoses) Code(s): E13.10 - OTH DIABETES MELLITUS WITH KETOACIDOSIS WITHOUT COMA Qualifiers: Diabetes mellitus type: other specified (including LAURA) Diabetes mellitus complication detail: without coma Qualified Code(s): E13.10 - Other specified diabetes mellitus with ketoacidosis without coma (2) Diabetes mellitus, insulin dependent (IDDM), uncontrolled Code(s): E10.65 - TYPE 1 DIABETES MELLITUS WITH HYPERGLYCEMIA (3) Renal transplant disorder Code(s): T86.10 - UNSPECIFIED COMPLICATION OF KIDNEY TRANSPLANT (4) CKD (chronic kidney disease) Code(s): N18.9 - CHRONIC KIDNEY DISEASE, UNSPECIFIED (5) ESRD (end stage renal disease) Code(s): N18.6 - END STAGE RENAL DISEASE (6) Hypertension Code(s): I10 - ESSENTIAL (PRIMARY) HYPERTENSION (7) Leukocytosis Code(s): D72.829 - ELEVATED WHITE BLOOD CELL COUNT, UNSPECIFIED (8) Hypothermia Code(s): T68.XXXA - HYPOTHERMIA, INITIAL ENCOUNTER
[2016-12-17] MEDS: METOPROLOL TARTRATE 25 MG TABLET (FP) PO SCH ×2 (13:06→21:48)
--- NOTE | 2016-12-17 14:13 | PN ---
Progress Note (short form) - Note Progress Note: Events noted Transferred out of ICU to the floor Denies any complaints Good apetite Vital Signs Period Temp Pulse Resp BP Sys/Esposito Pulse Ox Last 24 Hr 97.4 F-99.2 F 78-95 18-28 130-154/53-81 96 PE; Awake, alert Neck: Supple, No JVD HEENT: EOMI Lungs: CTA CVS: S1S2 Abd: Benign Ext: No edema CMP Sodium 144 mmol/L (136-145) 12/17/16 07:35 Potassium 4.3 mmol/L (3.5-5.1) 12/17/16 07:35 Chloride 113 mmol/L (98-107) H 12/17/16 07:35 Carbon Dioxide 21 mmol/L (21-32) 12/17/16 07:35 Anion Gap 10 (8-16) 12/17/16 07:35 BUN 57 mg/dL (7-18) H 12/17/16 07:35 Creatinine 2.6 mg/dL (0.7-1.3) H D 12/17/16 07:35 Creat Clearance w eGFR 20.79 (>60) 12/15/16 10:21 POC Glucometer 193 UNITS (()) 12/17/16 12:34 Random Glucose 137 mg/dL (74-106) H D 12/17/16 07:35 Hemoglobin A1c % 8.4 % (4.8-6.0) H D 12/16/16 05:20 Lactic Acid 1.9 mmol/L (0.4-2.0) 12/15/16 14:00 Calcium 8.2 mg/dL (8.5-10.1) L 12/17/16 07:35 Phosphorus 4.3 mg/dL (2.5-4.9) 12/16/16 05:20 Magnesium 2.1 mg/dL (1.8-2.4) 12/16/16 05:20 Total Bilirubin 0.5 mg/dL (0.2-1.0) D 12/15/16 10:21 AST 17 U/L (15-37) D 12/15/16 10:21 ALT 21 U/L (12-78) 12/15/16 10:21 Alkaline Phosphatase 82 U/L (45-117) D 12/15/16 10:21 Ammonia 53.37 umol/L (11-32) H 12/15/16 11:33 Creatine Kinase 174 IU/L (39-308) 12/16/16 05:20 Creatine Kinase Index 1.7 % (0.0-5.0) 12/16/16 05:20 CK-MB (CK-2) 3.095 ng/mL (0.5-3.6) 12/16/16 05:20 Troponin I < 0.02 ng/ml (0.00-0.05) D 12/15/16 10:21 Total Protein 6.0 g/dl (6.4-8.2) L 12/15/16 10:21 Albumin 3.1 g/dl (3.4-5.0) L 12/15/16 10:21 Current Medications Generic Name Dose Route Start Last Admin Trade Name Freq PRN Reason Stop Dose Admin Clopidogrel Bisulfate 75 mg 12/17/16 10:00 12/17/16 09:21 Plavix - PO 75 mg DAILY KAT Administration Docusate Sodium 100 mg 12/16/16 21:17 Colace - PO TID PRN CONSTIPATION Heparin Sodium (Porcine) 5,000 unit 12/16/16 22:00 12/17/16 09:20 Heparin - SQ 5,000 unit BID KAT Administration Sodium Chloride 1,000 mls @ 83 mls/hr 12/16/16 21:17 12/16/16 22:00 Normal Saline - IV Not Given ASDIR [facility] Insulin Aspart 1 vial 12/17/16 07:00 12/17/16 12:36 Novolog Vial Sliding Scale - SQ 2 units TIDAC [facility] Administration Protocol Insulin Detemir 20 units 12/17/16 22:00 Levemir Vial SQ HS [facility] Metoprolol Tartrate 25 mg 12/17/16 11:15 12/17/16 13:06 Lopressor - PO 25 mg BID KAT Administration Nifedipine 30 mg 12/16/16 22:00 12/17/16 09:20 Procardia Xl - PO 30 mg BID KAT Administration Pantoprazole Sodium 20 mg 12/17/16 10:00 12/17/16 09:20 Protonix - PO 20 mg DAILY KAT Administration Prednisone 5 mg 12/17/16 10:00 12/17/16 09:20 Deltasone - PO 5 mg DAILY KAT Administration Senna 1 tab 12/16/16 21:17 Senna - PO DAILY PRN CONSTIPATION Sodium Bicarbonate 1,300 mg 12/16/16 22:00 12/17/16 09:20 Sodium Bicarbonate - PO 1,300 mg BID KAT Administration Tacrolimus 3 mg 12/16/16 22:00 12/17/16 09:28 Prograf (Non-Formulary) PO 3 mg BID KAT Administration AP: DKA T2DM LAVERNE S/P renal transplant HTN Levemir 18 units at HS Novolog SS coverage Blood sugar high yesterday as pt was on IV Dextrose Monitor blood sugar on current regimen and adjust dose tomorrow as necessary. Nutrition consult IV hydration as necessary Will f/u
--- NOTE | 2016-12-17 14:41 | PN ---
Teaching Attending Note Name of Resident: Ana Robertson ATTENDING PHYSICIAN STATEMENT I saw and evaluated the patient. I reviewed the resident's note and discussed the case with the resident. I agree with the resident's findings and plan as documented. SUBJECTIVE: feels better. events over night noted for agitation , and confusion. this am , he has no complaints, no pain or SOB OBJECTIVE: NAD , MMM. AAox3 CV: RRR lUngs : bibasilar crackles Ext : no edema And : soft, NT, ND , NL BS neuro : no facial droop. EOMI, round equal pupils , reactive to light . tongue and uvula at mid line . Strength 5/5 inupper and lower ext proximally and distally. sensation tolight touch NL. 2+ knee jerk and biceps b/l A/P : 71 Y/O gentleman with h/o ESRD s/p renal transplant , CAD , BPH ,and IDDM who presented with fatigue and increased thirst, and was found to have LAVERNE and DKA 1- DKA :resolved, sugar has improved - levemir and SSI 2- LAVERNE: likely prerenal in etiolgy as it improved with IVF - cont IVF - cont prednisone and tacrolimus - cont to hold losartan 3- Acute delirium. due to change in environment , acute illness in this 71 y/o man improved no , back to [facility]. Ct of head withno etiology - monitor - cont to orient patient - contact family to help with orientation an provide company at night - avoid Benzos 4- HTN: - Cont Nifedipine -resume BB 4- H/o CAD : cont plavix . - resume BB Dispo : dc pending resolution of acute renal failure
[2016-12-17] MEDS ORDERED: INSULIN (NOVOLOG) ASPART 100 UNITS/ML 10ML VIAL ONE ×2 (17:36→20:29)
[2016-12-17] MEDS: SODIUM CHLORIDE 1,000 ML IV SCH (18:35)
[2016-12-17] MEDS ORDERED: INSULIN DETEMIR 100 UNITS/ML MDV SQ SCH (22:00)
[2016-12-18] MEDS: INSULIN SLIDING SCALE (NOVOLOG) 1 VIAL SQ SCH ×3 (07:13→18:00)
[2016-12-18 07:35] LABS: MCH 30.3 pg (25.7-33.7); MEAN PLT VOLUME 7.9 fl (7.5-11.1); PLATELET COUNT 131 K/MM3 (134-434); RDW 13.9 % (11.9-15.9); WHITE BLOOD COUNT 8.5 K/mm3 (4.0-10.0)
[2016-12-18 07:42] LABS: ALBUMIN 2.8 g/dl (3.4-5.0); ALK PHOS 98 U/L (45-117); ANION GAP 8 (8-16); BILIRUBIN,TOTAL 0.7 mg/dL (0.2-1.0); CALCIUM 8.5 mg/dL (8.5-10.1); CO2 24 mmol/L (21-32); CREATININE 1.7 mg/dL (0.7-1.3); GLUCOSE,RANDOM 79 mg/dL (74-106); MAGNESIUM 2.1 mg/dL (1.8-2.4); PHOSPHOROUS 2.3 mg/dL (2.5-4.9); SGOT/AST 28 U/L (15-37); SGPT/ALT 30 U/L (12-78); TOT PROT 5.9 g/dl (6.4-8.2)
--- NOTE | 2016-12-18 10:05 | HOSP ---
Physical Examination Vital Signs: Vital Signs Temperature 98.1 F 12/17/16 22:02 Pulse Rate 72 12/18/16 09:03 Respiratory Rate 28 H 12/18/16 09:03 Blood Pressure 140/60 12/18/16 09:03 O2 Sat by Pulse Oximetry (%) 96 12/17/16 21:00 Labs: CBC, BMP 12/18/16 06:10 12/18/16 06:10 Hospitalist Encounter Assessment: Paged by RN to assess patient s/p fall. When I arrived patient was sitting in the wheelchair and in no acute distress Patient reports he got out of bed to go use the bathroom and slipped due to loss of balance. He denies any weakness, dizziness, lightheadedness, loss of consciousness, pain, soreness. Patient continued to report that "I am fine." Spoke to nurse who witnessed the fall and was able to catch his fall before hitting his upper body and head. However, nurse does report the patient did fall on his buttocks. Patient's vitals were taken prior to fall and BP was 140's /60's with a heart rate in the 70's. Patient does have multiple ecchymosis that were previously there and do not appear to be new. VITALS: BP: 100/56 Pulse: 74 Respiratory Rate: 29 02 SAT: 98% on RA Glucose: 225 PHYSICAL EXAM General: Awake and Alert. In no acute distress HEART: RRR LUNGS: CTA bilaterally. No wheezes, rhonchi, or crackles appreciated ABDOMEN: Soft, nontender, normoactive bowel sounds, no ecchymosis appreciated NEURO: Unstable gait. PERRLA, EOMI, Motor strength 5/5 throughout, Sensory intact, No facial droop. CN II-XII intact (did not test CN VIII). Normal speech. BACK: No paraspinal or spinal tenderness. SKIN: Left Elbow abrasion (before fall). Multiple ecchymosis before fall in the lower back and bilateral arms. A&P S/P mechanical Fall -No indication for Head CT due to witnessed fall with no head trauma and no focal deficit changes -On Plavix and Heparin SQ for prophylaxis. Will repeat PTT -Will begin monitoring and neuro checks Q2H for 12 hours and then Q4H -Continue Pulse ox monitoring -Pharmacy consult placed -Told nurse to hold Anti-HTN medications Visit type - Emergency Visit Emergency Visit: Yes ED Registration Date: 12/15/16 Care time: The patient presented to the Emergency Department on the above date and was hospitalized for further evaluation of their emergent condition. - New Patient This patient is new to me today: No - Critical Care Critical Care patient: No
--- NOTE | 2016-12-18 11:03 | PN ---
Progress Note (short form) - Note Progress Note: Events noted Had fall Currently in bed Denies any complaints Vital Signs Period Temp Pulse Resp BP Sys/Esposito Pulse Ox Last 24 Hr 98.1 F-98.2 F 66-88 17-32 105-140/44-63 96 PE; Awake, alert Neck: Supple, No JVD HEENT: EOMI Lungs: CTA CVS: S1S2 Abd: Benign Ext: No edema CMP Sodium 144 mmol/L (136-145) 12/18/16 06:10 Potassium 4.7 mmol/L (3.5-5.1) 12/18/16 06:10 Chloride 112 mmol/L (98-107) H 12/18/16 06:10 Carbon Dioxide 24 mmol/L (21-32) 12/18/16 06:10 Anion Gap 8 (8-16) 12/18/16 06:10 BUN 40 mg/dL (7-18) H D 12/18/16 06:10 Creatinine 1.7 mg/dL (0.7-1.3) H D 12/18/16 06:10 Creat Clearance w eGFR 40.04 (>60) 12/18/16 06:10 POC Glucometer 225 UNITS (()) 12/18/16 09:39 Random Glucose 79 mg/dL (74-106) D 12/18/16 06:10 Hemoglobin A1c % 8.4 % (4.8-6.0) H D 12/16/16 05:20 Lactic Acid 1.9 mmol/L (0.4-2.0) 12/15/16 14:00 Calcium 8.5 mg/dL (8.5-10.1) 12/18/16 06:10 Phosphorus 2.3 mg/dL (2.5-4.9) L D 12/18/16 06:10 Magnesium 2.1 mg/dL (1.8-2.4) 12/18/16 06:10 Total Bilirubin 0.7 mg/dL (0.2-1.0) D 12/18/16 06:10 AST 28 U/L (15-37) D 12/18/16 06:10 ALT 30 U/L (12-78) D 12/18/16 06:10 Alkaline Phosphatase 98 U/L (45-117) 12/18/16 06:10 Ammonia 53.37 umol/L (11-32) H 12/15/16 11:33 Creatine Kinase 174 IU/L (39-308) 12/16/16 05:20 Creatine Kinase Index 1.7 % (0.0-5.0) 12/16/16 05:20 CK-MB (CK-2) 3.095 ng/mL (0.5-3.6) 12/16/16 05:20 Troponin I < 0.02 ng/ml (0.00-0.05) D 12/15/16 10:21 Total Protein 5.9 g/dl (6.4-8.2) L 12/18/16 06:10 Albumin 2.8 g/dl (3.4-5.0) L 12/18/16 06:10 Current Medications Generic Name Dose Route Start Last Admin Trade Name Freq PRN Reason Stop Dose Admin Clopidogrel Bisulfate 75 mg 12/17/16 10:00 12/17/16 09:21 Plavix - PO 75 mg DAILY KAT Administration Docusate Sodium 100 mg 12/16/16 21:17 Colace - PO TID PRN CONSTIPATION Heparin Sodium (Porcine) 5,000 unit 12/16/16 22:00 12/17/16 21:47 Heparin - SQ 5,000 unit BID KAT Administration Sodium Chloride 1,000 mls @ 83 mls/hr 12/16/16 21:17 12/17/16 18:35 Normal Saline - IV 83 mls/hr ASDIR KAT Administration Insulin Aspart 1 vial 12/17/16 07:00 12/18/16 07:13 Novolog Vial Sliding Scale - SQ [facility] Protocol Insulin Detemir 20 units 12/17/16 22:00 12/17/16 21:47 Levemir Vial SQ 20 units HS KAT Administration Metoprolol Tartrate 25 mg 12/17/16 11:15 12/17/16 21:48 Lopressor - PO 25 mg BID KAT Administration Nifedipine 30 mg 12/16/16 22:00 12/17/16 21:48 Procardia Xl - PO 30 mg BID KAT Administration Pantoprazole Sodium 20 mg 12/17/16 10:00 12/17/16 09:20 Protonix - PO 20 mg DAILY KAT Administration Prednisone 5 mg 12/17/16 10:00 12/17/16 09:20 Deltasone - PO 5 mg DAILY KAT Administration Senna 1 tab 12/16/16 21:17 Senna - PO DAILY PRN CONSTIPATION Sodium Bicarbonate 1,300 mg 12/16/16 22:00 12/17/16 21:48 Sodium Bicarbonate - PO 1,300 mg BID KAT Administration Tacrolimus 3 mg 12/16/16 22:00 12/17/16 21:49 Prograf (Non-Formulary) PO 3 mg BID KAT Administration AP: DKA T2DM LAVERNE S/P renal transplant HTN Decrease Levemir 18 units at HS Novolog SS coverage Blood sugar >400 yesterday. Cause unclear. Pt on Prednisone 5mg in the morning. Doubt that would cause such hyperglycemia IV hydration as necessary Will f/u
[2016-12-18] MEDS ORDERED: PT OWN MED DRAWER 7, Y5N ONE ×2 (11:32→21:19)
[2016-12-18] MEDS: METOPROLOL TARTRATE 25 MG TABLET (FP) PO SCH ×2 (11:34→21:40)
[2016-12-18] MEDS: NIFEdipine E.R. 30 MG TABLET (FP) PO SCH (11:34)
[2016-12-18] MEDS: SODIUM BICARBONATE 650 MG TABLET PO SCH ×2 (11:36→21:40)
[2016-12-18] MEDS: CLOPIDOGREL BISULFATE 75 MG TABLET (FP) PO SCH (11:37)
[2016-12-18] MEDS: PANTOPRAZOLE 20 MG TABLET (FP) PO SCH (11:37)
[2016-12-18] MEDS: HEPARIN NA (PORCINE) 5,000 UNITS/ML 1ML VIAL SQ SCH ×2 (11:38→21:40)
[2016-12-18] MEDS: predniSONE 5 MG TABLET (UD) PO SCH (11:38)
[2016-12-18] MEDS: TACROLIMUS ANHYDROUS 1 MG CAPSULE (NF) PO SCH ×2 (11:39→21:47)
[2016-12-18] MEDS ORDERED: INSULIN (NOVOLOG) ASPART 100 UNITS/ML 10ML VIAL ONE ×3 (12:10→21:18)
--- NOTE | 2016-12-18 13:51 | PN ---
Progress Note (short form) - Note Progress Note: Renal Follow up for Renal Transplant with L[facility]ERNE Pt seen and examined at the bedside awake and alert no acute complaints wants to go home Vital Signs Temperature 97.9 F 12/18/16 12:38 Pulse Rate 67 12/18/16 12:38 Respiratory Rate 28 H 12/18/16 12:38 Blood Pressure 147/71 12/18/16 12:38 O2 Sat by Pulse Oximetry (%) 96 12/17/16 21:00 Intake & Output 12/15/16 12/16/16 12/17/16 12/18/16 23:59 23:59 23:59 23:59 Intake Total 1505 1600 1116 1660 Output Total 369 433 0967 Balance 1505 950 891 260 Weight 174 lb 174 lb 13.225 oz Gen: NAD, awake and alert CVS: RRR, No M/R Lungs: CTA, no rales or wheeze Abd: Soft NT/ND Ext: Trace to 1+ edema CBC, BMP 12/18/16 06:10 12/18/16 06:10 Laboratory Tests 12/18/16 06:10 Calcium 8.5 Phosphorus 2.3 L D Magnesium 2.1 Albumin 2.8 L Current Medications Clopidogrel Bisulfate (Plavix -) 75 mg PO DAILY [facility] Last Admin: 12/18/16 11:37 Dose: 75 mg Docusate Sodium (Colace -) 100 mg PO TID PRN PRN Reason: CONSTIPATION Heparin Sodium (Porcine) (Heparin -) 5,000 unit SQ BID [facility] Last Admin: 12/18/16 11:38 Dose: 5,000 unit Insulin Aspart (Novolog Vial Sliding Scale -) 1 vial SQ TIDAC [facility] PRN Reason: Protocol Last Admin: 12/18/16 12:34 Dose: 8 units Insulin Detemir (Levemir Vial) 18 units SQ HS [facility] Metoprolol Tartrate (Lopressor -) 25 mg PO BID [facility] Last Admin: 12/18/16 11:34 Dose: Not Given Mycophenolate Mofetil (Cellcept -) 500 mg PO BID [facility] Nifedipine (Procardia Xl -) 30 mg PO BID [facility] Last Admin: 12/18/16 11:34 Dose: Not Given Pantoprazole Sodium (Protonix -) 20 mg PO DAILY [facility] Last Admin: 12/18/16 11:37 Dose: 20 mg Prednisone (Deltasone -) 5 mg PO DAILY [facility] Last Admin: 12/18/16 11:38 Dose: 5 mg Senna (Senna -) 1 tab PO DAILY PRN PRN Reason: CONSTIPATION Sodium Bicarbonate (Sodium Bicarbonate -) 1,300 mg PO BID [facility] Last Admin: 12/18/16 11:36 Dose: 1,300 mg Tacrolimus (Prograf (Non-Formulary)) 3 mg PO BID [facility] Last Admin: 12/18/16 11:39 Dose: 3 mg A/P 71 year old Gentleman with PMhx of ESRD s/p 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 #ESRD s/p Renal Transplant (baseline Cr 1.7-1.9) with acute kidney Injury Renal function now imrproved to baseline resume Cellcept in addition to Tacolimus and Perdnione oral intake as tolerated can d/c IVF Dose all med for Cr Cl less then 30 continue sodium bicarb BID #DKA/Insulin dependent DM Continue management as per primary team #Lactic acidosis/Metabolic acidosis from sepsis/hypovolemia associated with DKA no resolved #Sepsis r/o bacterial infection vs. viral syndrome cultures collected, no growth reported to date not currently on Abx #Hypertension hold nifedpine because of lower bP Pedro Villalobos DO Problem List - Problems (1) DKA (diabetic ketoacidoses) Code(s): E13.10 - [facility] DIABETES MELLITUS WITH KETOACIDOSIS WITHOUT COMA Qualifiers: Diabetes mellitus type: other specified (including LAURA) Diabetes mellitus complication detail: without coma Qualified Code(s): E13.10 - Other specified diabetes mellitus with ketoacidosis without coma (2) Diabetes mellitus, insulin dependent (IDDM), uncontrolled Code(s): E10.65 - TYPE 1 DIABETES MELLITUS WITH HYPERGLYCEMIA (3) Renal transplant disorder Code(s): T86.10 - UNSPECIFIED COMPLICATION OF KIDNEY TRANSPLANT (4) CKD (chronic kidney disease) Code(s): N18.9 - CHRONIC KIDNEY DISEASE, UNSPECIFIED (5) ESRD (end stage renal disease) Code(s): N18.6 - END STAGE RENAL DISEASE (6) Hypertension Code(s): I10 - ESSENTIAL (PRIMARY) HYPERTENSION (7) Leukocytosis Code(s): D72.829 - ELEVATED WHITE BLOOD CELL COUNT, UNSPECIFIED (8) Hypothermia Code(s): T68.XXXA - HYPOTHERMIA, INITIAL ENCOUNTER
[2016-12-18 14:50] LABS: PLATELET ESTIMATE DECREASED (NORMAL)
--- NOTE | 2016-12-18 18:44 | PN ---
Teaching Attending Note Name of Resident: Ana Robertson ATTENDING PHYSICIAN STATEMENT I saw and evaluated the patient. I reviewed the resident's note and discussed the case with the resident. I agree with the resident's findings and plan as documented. SUBJECTIVE: no fever or chills, fell this am , mechanical witnessed fall . no pain OBJECTIVE: NAD , MMM. AAox3 CV: RRR lUngs :CTAB Ext : no edema A/P : 71 Y/O gentleman with h/o ESRD s/p renal transplant , CAD , BPH ,and IDDM who presented with fatigue and increased thirst, and was found to have LAVERNE and DKA 1- DKA :resolved, sugar has improved - levemir and SSI 2- LAVERNE: likely prerenal in etiology as it improved with IVF - dc IVF - cont prednisone and tacrolimus - start cellcept 3- Acute delirium. improved - monitor - cont to orient patient - avoid Benzos 4- HTN: BP on lower side this am . - dc nifedipin -cont BB - if renal function remains stable , might want to resume ARB at low dose 4- H/o CAD : cont plavix . - cont BB Dispo :need rehab. SW made aware
--- NOTE | 2016-12-18 19:33 | PN ---
Physical Exam: SUBJECTIVE: Patient seen and examined this AM. No complaints, no fevers, no chills, no CP, no SOB. AAOx3. Last night pulled out his IV, slight confusion, but was easily reoriented. Pt fell this early afternoon, no LOC, patient's SBP < 100, AM blood pressure meds were held. OBJECTIVE: Vital Signs Period Temp Pulse Resp BP Sys/Esposito Pulse Ox Last 24 Hr 97.4 F-98.6 F 65-82 18-124 105-157/44-74 96 GENERAL: AAOx2, in NAD HEENT: PERRLA, EOMi, No pharyngeal exudate, no cervical LAD LUNG: CTABL, no labored respirations CV: S1, S2, RRR ABD: Soft, NT, ND, hypoactive BS MSK: No edema, no erythema NEURO: CN 2-12 intact, sensation equal and intact in face/body, MSK 5+ in all extremities Laboratory Results - last 24 hr 12/17/16 12/17/16 12/17/16 17:28 18:30 18:30 WBC RBC Hgb Hct MCV MCH MCHC RDW Plt Count MPV Neutrophils % Lymphocytes % Monocytes % Eosinophils % Differential Comment Platelet Estimate PTT (Actin FS) Sodium Potassium Chloride Carbon Dioxide Anion Gap BUN Creatinine Creat Clearance w eGFR POC Glucometer 403 Random Glucose Calcium Phosphorus Magnesium Total Bilirubin AST ALT Alkaline Phosphatase Total Protein Albumin Ur Random Sodium 107 Ur Random Potassium 9.9 Ur Random Chloride 98 Urine Creatinine 21.5 12/17/16 12/18/16 12/18/16 21:40 06:10 06:10 WBC 8.5 RBC 3.97 L Hgb 12.1 Hct 36.6 MCV 92.0 MCH 30.3 MCHC 33.0 RDW 13.9 Plt Count 131 L MPV 7.9 Neutrophils % 67.0 Lymphocytes % 17.0 Monocytes % 14.0 H Eosinophils % 2.0 D Differential Comment Manual diff done Platelet Estimate Decreased PTT (Actin FS) Sodium 144 Potassium 4.7 Chloride 112 H Carbon Dioxide 24 Anion Gap 8 BUN 40 H D Creatinine 1.7 H D Creat Clearance w eGFR 40.04 POC Glucometer 185 Random Glucose 79 D Calcium 8.5 Phosphorus 2.3 L D Magnesium 2.1 Total Bilirubin 0.7 D AST 28 D ALT 30 D Alkaline Phosphatase 98 Total Protein 5.9 L Albumin 2.8 L Ur Random Sodium Ur Random Potassium Ur Random Chloride Urine Creatinine 12/18/16 12/18/16 12/18/16 06:36 09:39 10:30 WBC RBC Hgb Hct MCV MCH MCHC RDW Plt Count MPV Neutrophils % Lymphocytes % Monocytes % Eosinophils % Differential Comment Platelet Estimate PTT (Actin FS) 34.3 Sodium Potassium Chloride Carbon Dioxide Anion Gap BUN Creatinine Creat Clearance w eGFR POC Glucometer 84 225 Random Glucose Calcium Phosphorus Magnesium Total Bilirubin AST ALT Alkaline Phosphatase Total Protein Albumin Ur Random Sodium Ur Random Potassium Ur Random Chloride Urine Creatinine 12/18/16 12/18/16 12:33 17:50 WBC RBC Hgb Hct MCV MCH MCHC RDW Plt Count MPV Neutrophils % Lymphocytes % Monocytes % Eosinophils % Differential Comment Platelet Estimate PTT (Actin FS) Sodium Potassium Chloride Carbon Dioxide Anion Gap BUN Creatinine Creat Clearance w eGFR POC Glucometer 334 372 Random Glucose Calcium Phosphorus Magnesium Total Bilirubin AST ALT Alkaline Phosphatase Total Protein Albumin Ur Random Sodium Ur Random Potassium Ur Random Chloride Urine Creatinine Active Medications Generic Name Dose Route Start Last Admin Trade Name Freq PRN Reason Stop Dose Admin Clopidogrel Bisulfate 75 mg 12/17/16 10:00 12/18/16 11:37 Plavix - PO 75 mg DAILY [facility] Administration Docusate Sodium 100 mg 12/16/16 21:17 Colace - PO TID PRN CONSTIPATION Heparin Sodium (Porcine) 5,000 unit 12/16/16 22:00 12/18/16 11:38 Heparin - SQ 5,000 unit BID [facility] Administration Insulin Aspart 1 vial 12/17/16 07:00 12/18/16 18:00 Novolog Vial Sliding Scale - SQ 8 units TIDAC [facility] Administration Protocol Insulin Detemir 18 units 12/18/16 22:00 Levemir Vial SQ HS [facility] Metoprolol Tartrate 25 mg 12/18/16 22:00 Lopressor - PO BID [facility] Mycophenolate Mofetil 500 mg 12/18/16 22:00 Cellcept - PO BID [facility] Pantoprazole Sodium 20 mg 12/17/16 10:00 12/18/16 11:37 Protonix - PO 20 mg DAILY KAT Administration Prednisone 5 mg 12/17/16 10:00 12/18/16 11:38 Deltasone - PO 5 mg DAILY [facility] Administration Senna 1 tab 12/16/16 21:17 Senna - PO DAILY PRN CONSTIPATION Sodium Bicarbonate 1,300 mg 12/16/16 22:00 08/11/17 11:36 Sodium Bicarbonate - PO 1,300 mg BID KAT Administration Tacrolimus 3 mg 12/16/16 22:00 12/18/16 11:39 Prograf (Non-Formulary) PO 3 mg BID KAT Administration ASSESSMENT/PLAN: Pt is a 71yo M with a PMHx of IDDM2, ESRD (s/p transplant) who presented to the ER by EMS after an episode of weakness and lethargy and found to have a glucose >400. He was found to be hypothermic and hypotensive with suspected sepsis and DKA, likely due to improper insulin usage. He received IVNS Bolus and insulin drip in the ICU. # Diabetic Ketoacidosis vs Hyperglycemia - Gap closed - Switched Levemir from 20 --> 18 - On SSI - If not hypoglycemic in AM, consider standing prandial insulin # LAVERNE on CKD - Cr improved after fluids, likely pre-renal - D/c'd fluids - Renally dose all meds # Acute Delirium - resolved - Head CT - negative - Better than last night - D/c vital checks and FSG during the night - Keep oriented # Hx of ESRD s/p renal transplant - Continue Prednisone + Tacrolimus + Na Bicarb - Restarted Cellcept # HTN - Continue Nifedipine + Metoprolol - Hold Losartan for LAVERNE # Hx of CAD - Continue ASA 81mg + Plavix 75mg # Hx of BPH - Held Flomax due to presenting low BP - Good UOP, will continue at discharge # FEN - Fluids: Held - Electrolytes: BMP Q4 - Nutrition: Diabetic diet # Prophylaxis - DVT: Heparin SQ 5000 BID - GI: Protonix home med - Deconditioning: PT ordered # Code Status - Pt states he is DNI not DNR # Disposition - PT on 12/17 - 30 feet with rolling walker - will have PT order for 12/19 Visit type - Emergency Visit Emergency Visit: No - New Patient This patient is new to me today: No - Critical Care Critical Care patient: No - Discharge Referral Referred to [facility] No
[2016-12-18] MEDS: MYCOPHENOLATE MOFETIL 250 MG CAPSULE PO SCH (21:46)
[2016-12-18] MEDS ORDERED: INSULIN DETEMIR 100 UNITS/ML MDV SQ SCH (22:00)
[2016-12-19] MEDS: INSULIN SLIDING SCALE (NOVOLOG) 1 VIAL SQ SCH ×3 (06:37→16:55)
[2016-12-19 08:40] LABS: ANION GAP 8 (8-16); CALCIUM 8.5 mg/dL (8.5-10.1); CO2 22 mmol/L (21-32); CREATININE 1.6 mg/dL (0.7-1.3); GLUCOSE,RANDOM 259 mg/dL (74-106)
--- NOTE | 2016-12-19 09:07 | PN ---
Physical Exam: SUBJECTIVE: Patient seen and examined this AM. Pt is oriented x3. No complaints of lightheadedness, no fevers, no chills, no CP, no SOB. Nurse states pt had minimal confusion last night, easily reoriented. AM glucose elevated. PT today to assess gait. OBJECTIVE: Vital Signs Period Temp Pulse Resp BP Sys/Esposito Pulse Ox Last 24 Hr 97.4 F-98.8 F 60-82 20-32 105-157/44-75 95-96 GENERAL: AAOx3, NAD, comfortable HEENT: PERRLA, EOMi, no cervical LAD LUNG: CTABL, no labored respirations CV: S1, S2, RRR ABD: Soft, NT, ND, hypoactive BS MSK: No edema, no erythema NEURO: CN 2-12 intact, sensation equal and intact in face/body, MSK 5/5 in all extremities, reflexes 1+ Laboratory Results - last 24 hr 12/18/16 12/18/16 12/18/16 06:10 09:39 10:30 WBC 8.5 RBC 3.97 L Hgb 12.1 Hct 36.6 MCV 92.0 MCH 30.3 MCHC 33.0 RDW 13.9 Plt Count 131 L MPV 7.9 Neutrophils % 67.0 Lymphocytes % 17.0 Monocytes % 14.0 H Eosinophils % 2.0 D Differential Comment Manual diff done Platelet Estimate Decreased PTT (Actin FS) 34.3 Sodium Potassium Chloride Carbon Dioxide Anion Gap BUN Creatinine POC Glucometer 225 Random Glucose Calcium 12/18/16 12/18/16 12/18/16 12:33 17:50 21:51 WBC RBC Hgb Hct MCV MCH MCHC RDW Plt Count MPV Neutrophils % Lymphocytes % Monocytes % Eosinophils % Differential Comment Platelet Estimate PTT (Actin FS) Sodium Potassium Chloride Carbon Dioxide Anion Gap BUN Creatinine POC Glucometer 334 372 332 Random Glucose Calcium 12/19/16 12/19/16 12/19/16 02:16 06:37 07:30 WBC RBC Hgb Hct MCV MCH MCHC RDW Plt Count MPV Neutrophils % Lymphocytes % Monocytes % Eosinophils % Differential Comment Platelet Estimate PTT (Actin FS) Sodium 142 Potassium 4.6 Chloride 112 H Carbon Dioxide 22 Anion Gap 8 BUN 41 H Creatinine 1.6 H POC Glucometer 363 313 Random Glucose 259 H D Calcium 8.5 12/19/16 08:34 WBC RBC Hgb Hct MCV MCH MCHC RDW Plt Count MPV Neutrophils % Lymphocytes % Monocytes % Eosinophils % Differential Comment Platelet Estimate PTT (Actin FS) Sodium Potassium Chloride Carbon Dioxide Anion Gap BUN Creatinine POC Glucometer 226 Random Glucose Calcium Active Medications Generic Name Dose Route Start Last Admin Trade Name Freq PRN Reason Stop Dose Admin Aspirin 81 mg 12/19/16 10:00 Asa - PO DAILY KAT Clopidogrel Bisulfate 75 mg 12/17/16 10:00 12/18/16 11:37 Plavix - PO 75 mg DAILY KAT Administration Docusate Sodium 100 mg 12/16/16 21:17 Colace - PO TID PRN CONSTIPATION Heparin Sodium (Porcine) 5,000 unit 12/16/16 22:00 12/18/16 21:40 Heparin - SQ 5,000 unit BID KAT Administration Insulin Aspart 1 vial 12/17/16 07:00 12/19/16 06:37 Novolog Vial Sliding Scale - SQ 8 units TIDAC KAT Administration Protocol Insulin Detemir 18 units 12/18/16 22:00 12/18/16 21:57 Levemir Vial SQ 18 units HS KAT Administration Metoprolol Tartrate 25 mg 12/18/16 22:00 12/18/16 21:40 Lopressor - PO 25 mg BID KAT Administration Mycophenolate Mofetil 500 mg 12/18/16 22:00 12/18/16 21:46 Cellcept - PO 500 mg BID KAT Administration Pantoprazole Sodium 20 mg 12/17/16 10:00 12/18/16 11:37 Protonix - PO 20 mg DAILY KAT Administration Prednisone 5 mg 12/17/16 10:00 12/18/16 11:38 Deltasone - PO 5 mg DAILY KAT Administration Senna 1 tab 12/16/16 21:17 Senna - PO DAILY PRN CONSTIPATION Sodium Bicarbonate 1,300 mg 12/16/16 22:00 12/18/16 21:40 Sodium Bicarbonate - PO 1,300 mg BID KAT Administration Tacrolimus 3 mg 12/16/16 22:00 12/18/16 21:47 Prograf (Non-Formulary) PO 3 mg BID KAT Administration ASSESSMENT/PLAN: Pt is a 71yo M with a PMHx of IDDM2, ESRD (s/p transplant) who presented to the ER by EMS after an episode of weakness and lethargy and found to have a glucose >400. He was found to be hypothermic and hypotensive with suspected sepsis and DKA, likely due to improper insulin usage. He received IVNS Bolus and insulin drip in the ICU. # Diabetic Ketoacidosis - resolved - Gap closed, on Levemir + SSI - High AM glucose w/ decreased Levemir 18, increased to 20 - Prandial glucose is 300s - 2u standing prandial insulin premeal # LAVERNE on CKD - improved - Cr at baseline after fluids - D/c'd fluids - Renally dose all meds # Acute Delirium - resolving - Head CT - negative - Improving - Keep oriented # Hx of ESRD s/p renal transplant - Continue Prednisone + Tacrolimus + Na Bicarb - Restarted Cellcept # HTN - Continue Nifedipine + Metoprolol - Hold Losartan for LAVERNE # Hx of CAD - Continue ASA 81mg + Plavix 75mg # Hx of BPH - Held Flomax due to presenting low BP - Good UOP, will continue at discharge # FEN - Fluids: Held - Electrolytes: BMP Q4 - Nutrition: Diabetic diet # Prophylaxis - DVT: Heparin SQ 5000 BID - GI: Protonix home med - Deconditioning: PT ordered # Code Status - Pt states he is DNI not DNR Visit type - Emergency Visit Emergency Visit: No - New Patient This patient is new to me today: No - Critical Care Critical Care patient: No - Discharge Referral Referred to [facility] Med P.C.: No
[2016-12-19] MEDS ORDERED: PT OWN MED DRAWER 7, Y5N ONE (10:47)
[2016-12-19] MEDS: SODIUM BICARBONATE 650 MG TABLET PO SCH ×2 (10:48→21:49)
[2016-12-19] MEDS: METOPROLOL TARTRATE 25 MG TABLET (FP) PO SCH ×2 (10:48→21:50)
[2016-12-19] MEDS: CLOPIDOGREL BISULFATE 75 MG TABLET (FP) PO SCH (10:48)
[2016-12-19] MEDS: PANTOPRAZOLE 20 MG TABLET (FP) PO SCH (10:48)
[2016-12-19] MEDS: HEPARIN NA (PORCINE) 5,000 UNITS/ML 1ML VIAL SQ SCH ×2 (10:49→21:48)
[2016-12-19] MEDS: predniSONE 5 MG TABLET (UD) PO SCH (10:49)
[2016-12-19] MEDS: ASPIRIN 81 MG CHEWABLE TABLETS PO SCH (10:49)
[2016-12-19] MEDS: TACROLIMUS ANHYDROUS 1 MG CAPSULE (NF) PO SCH ×2 (10:50→21:50)
[2016-12-19] MEDS: MYCOPHENOLATE MOFETIL 250 MG CAPSULE PO SCH ×2 (10:51→21:51)
--- NOTE | 2016-12-19 11:43 | PN ---
Teaching Attending Note Name of Resident: nAa Robertson ATTENDING PHYSICIAN STATEMENT I saw and evaluated the patient. I reviewed the resident's note and discussed the case with the resident. I agree with the resident's findings and plan as documented. SUBJECTIVE: no fever or chills . feels better OBJECTIVE: NAD , MMM. AAox3 CV: RRR lungs :CTAB Ext : no edema A/P : 71 Y/O gentleman with h/o ESRD s/p renal transplant , CAD , BPH ,and IDDM who presented with fatigue and increased thirst, and was found to have LAVERNE and DKA 1- DKA :sugar is elevated again today after decreasing HS levemir - increase HS levemir to 20 - add prandial novolog of 2 in addition to SSI 2- LAVERNE: likely prerenal in etiology - cont prednisone and tacrolimus and cellcept 3- Acute delirium. improved 4- HTN: BP improved -cont BB - resume ARB 4- H/o CAD: cont plavix . - cont BB Dispo :Ready for rehab if bed is available
[2016-12-19] MEDS ORDERED: INSULIN (NOVOLOG) ASPART 100 UNITS/ML 10ML VIAL ONE ×2 (12:10→16:47)
--- NOTE | 2016-12-19 12:15 | PN ---
Progress Note, Physician Chief Complaint: The patient seen in his room. Seems comfortable. Maintains good urine output. No chest pain, No shortness of breath. History of Present Illness: This is a 71 year old Gentleman with PMhx of ESRD s/p DDRT 03-09-2016 (baseline Cr now 1.7-1.9), Hypertension, IDDM, CAD who presented with complaints of weakness and lethargy and found to be hypothermic and hypotensive with suspected sepsis syndrome and DKA with BUN/Cr of 69/3. Pt is on Tacrolimus/Cellcept/Prednisone at home for his renal transplant. No pain over the graft site, No dysuria, hematuria. No NSAIDs use. Denies any fevers. The patient was noted to be profoundly Hyperglycemic. - Current Medication List Current Medications: Active Medications Aspirin (Asa -) 81 mg PO DAILY [facility] Last Admin: 12/19/16 10:49 Dose: 81 mg Clopidogrel Bisulfate (Plavix -) 75 mg PO DAILY [facility] Last Admin: 12/19/16 10:48 Dose: 75 mg Docusate Sodium (Colace -) 100 mg PO TID PRN PRN Reason: CONSTIPATION Heparin Sodium (Porcine) (Heparin -) 5,000 unit SQ BID [facility] Last Admin: 12/19/16 10:49 Dose: 5,000 unit Insulin Aspart (Novolog Vial Sliding Scale -) 1 vial SQ TIDAC [facility] PRN Reason: Protocol Last Admin: 12/19/16 06:37 Dose: 8 units Insulin Detemir (Levemir Vial) 18 units SQ HS [facility] Last Admin: 12/18/16 21:57 Dose: 18 units Metoprolol Tartrate (Lopressor -) 25 mg PO BID [facility] Last Admin: 12/19/16 10:48 Dose: 25 mg Mycophenolate Mofetil (Cellcept -) 500 mg PO BID [facility] Last Admin: 12/19/16 10:51 Dose: 500 mg Pantoprazole Sodium (Protonix -) 20 mg PO DAILY [facility] Last Admin: 12/19/16 10:48 Dose: 20 mg Prednisone (Deltasone -) 5 mg PO DAILY [facility] Last Admin: 12/19/16 10:49 Dose: 5 mg Senna (Senna -) 1 tab PO DAILY PRN PRN Reason: CONSTIPATION Sodium Bicarbonate (Sodium Bicarbonate -) 1,300 mg PO BID [facility] Last Admin: 12/19/16 10:48 Dose: 1,300 mg Tacrolimus (Prograf (Non-Formulary)) 3 mg PO BID [facility] Last Admin: 12/19/16 10:50 Dose: 3 mg - Objective Vital Signs: Vital Signs Temperature 98.1 F 12/19/16 05:00 Pulse Rate 60 12/19/16 09:16 Respiratory Rate 20 12/19/16 09:16 Blood Pressure 154/79 12/19/16 09:16 O2 Sat by Pulse Oximetry (%) 96 12/19/16 09:16 Constitutional: Yes: No Distress Eyes: Yes: Conjunctiva Clear HENT: Yes: Normocephalic Neck: Yes: Trachea Midline Cardiovascular: Yes: S1, S2 Respiratory: Yes: CTA Bilaterally Gastrointestinal: Yes: Normal Bowel Sounds, Abdomen, Obese. No: Tenderness, Tenderness, Rebound Musculoskeletal: No: Joint Stiffness Labs: CBC, BMP 12/18/16 06:10 12/19/16 07:30 INR, PTT INR 1.00 (0.82-1.09) 12/15/16 10:21 Problem List - Problems (1) ESRD (end stage renal disease) Code(s): N18.6 - END STAGE RENAL DISEASE (2) Renal transplant recipient Code(s): Z94.0 - KIDNEY TRANSPLANT STATUS (3) DKA (diabetic ketoacidoses) Code(s): E13.10 - OTH DIABETES MELLITUS WITH KETOACIDOSIS WITHOUT COMA Qualifiers: Diabetes mellitus type: other specified (including LAURA) Diabetes mellitus complication detail: without coma Qualified Code(s): E13.10 - Other specified diabetes mellitus with ketoacidosis without coma (4) Diabetes mellitus, insulin dependent (IDDM), uncontrolled Code(s): E10.65 - TYPE 1 DIABETES MELLITUS WITH HYPERGLYCEMIA Assessment/Plan This is a 71 year old Gentleman with PMhx of ESRD s/p DDRT 03-09-2016 Hyperrtension, IDDM, CAD who presented with complaints of weakness and lethargy and found to be hypothermic and hypotensive with suspected sepsis syndrome and DKA with BUN/Cr of 69/3. Anti-rejection regime includes Tacrolimus/Cellcept/Prednisone Denies any pain over the graft site The Acute Kidney failure due to Hemodynamic changes related to the hyperglycemia. the Renal functions are close to his baseline. Concur with the current management. When discharged, he will return to [facility] for the follow up. Heather Waters MD
--- NOTE | 2016-12-19 13:25 | PN ---
Progress Note (short form) - Note Progress Note: Awake, eating lunch. Denies CP or SOB. Intake & Output 12/16/16 12/17/16 12/18/16 12/19/16 23:59 23:59 23:59 23:59 Intake Total 1600 1116 2720 Output Total 313 955 0180 350 Balance 950 891 120 -350 Weight 174 lb 13.225 oz Last Vital Signs Temp Pulse Resp BP Pulse Ox 98.1 F 60 20 154/79 96 12/19/16 05:00 12/19/16 09:16 12/19/16 09:16 12/19/16 09:16 12/19/16 09:16 Active Medications Aspirin (Asa -) 81 mg PO DAILY [facility] Last Admin: 12/19/16 10:49 Dose: 81 mg Clopidogrel Bisulfate (Plavix -) 75 mg PO DAILY [facility] Last Admin: 12/19/16 10:48 Dose: 75 mg Docusate Sodium (Colace -) 100 mg PO TID PRN PRN Reason: CONSTIPATION Heparin Sodium (Porcine) (Heparin -) 5,000 unit SQ BID [facility] Last Admin: 12/19/16 10:49 Dose: 5,000 unit Insulin Aspart (Novolog Vial Sliding Scale -) 1 vial SQ TIDAC [facility] PRN Reason: Protocol Last Admin: 12/19/16 12:17 Dose: 4 units Insulin Detemir (Levemir Vial) 18 units SQ HS [facility] Last Admin: 12/18/16 21:57 Dose: 18 units Metoprolol Tartrate (Lopressor -) 25 mg PO BID [facility] Last Admin: 12/19/16 10:48 Dose: 25 mg Mycophenolate Mofetil (Cellcept -) 500 mg PO BID [facility] Last Admin: 12/19/16 10:51 Dose: 500 mg Pantoprazole Sodium (Protonix -) 20 mg PO DAILY [facility] Last Admin: 12/19/16 10:48 Dose: 20 mg Prednisone (Deltasone -) 5 mg PO DAILY [facility] Last Admin: 12/19/16 10:49 Dose: 5 mg Senna (Senna -) 1 tab PO DAILY PRN PRN Reason: CONSTIPATION Sodium Bicarbonate (Sodium Bicarbonate -) 1,300 mg PO BID [facility] Last Admin: 12/19/16 10:48 Dose: 1,300 mg Tacrolimus (Prograf (Non-Formulary)) 3 mg PO BID [facility] Last Admin: 12/19/16 10:50 Dose: 3 mg GENERAL: Awake, alert, and oriented, in no acute distress. HEENT: PERRLA, EOMI, no asymetery LUNGS: Breath sounds equal, clear to auscultation bilaterally. No wheezes, and no crackles. No accessory muscle use. HEART: Regular rate and rhythm, normal S1 and S2 without murmur, rub or gallop. ABDOMEN: Soft, nontender, nondistened EXT: trace LE edema NEURO: non focal exam Laboratory Results - last 24 hr 12/18/16 12/18/16 12/18/16 06:10 17:50 21:51 WBC 8.5 RBC 3.97 L Hgb 12.1 Hct 36.6 MCV 92.0 MCH 30.3 MCHC 33.0 RDW 13.9 Plt Count 131 L MPV 7.9 Neutrophils % 67.0 Lymphocytes % 17.0 Monocytes % 14.0 H Eosinophils % 2.0 D Differential Comment Manual diff done Platelet Estimate Decreased Sodium Potassium Chloride Carbon Dioxide Anion Gap BUN Creatinine POC Glucometer 372 332 Random Glucose Calcium 12/19/16 12/19/16 12/19/16 02:16 06:37 07:30 WBC RBC Hgb Hct MCV MCH MCHC RDW Plt Count MPV Neutrophils % Lymphocytes % Monocytes % Eosinophils % Differential Comment Platelet Estimate Sodium 142 Potassium 4.6 Chloride 112 H Carbon Dioxide 22 Anion Gap 8 BUN 41 H Creatinine 1.6 H POC Glucometer 363 313 Random Glucose 259 H D Calcium 8.5 12/19/16 12/19/16 08:34 11:21 WBC RBC Hgb Hct MCV MCH MCHC RDW Plt Count MPV Neutrophils % Lymphocytes % Monocytes % Eosinophils % Differential Comment Platelet Estimate Sodium Potassium Chloride Carbon Dioxide Anion Gap BUN Creatinine POC Glucometer 226 250 Random Glucose Calcium IMP: Hyperglycemia/DKA S/P renal transplant February 2016 HTN DM II (?) Resolving Viral Illness Glycemic control O2 as needed PO as tolerated VTE prophylaxis D/C planning Dr Huston
[2016-12-19] MEDS: INSULIN (NOVOLOG) ASPART 100 UNITS/ML 10ML VIAL SQ SCH (16:55)
[2016-12-19] MEDS: INSULIN DETEMIR 100 UNITS/ML MDV SQ SCH (21:49)
[2016-12-20] MEDS: INSULIN (NOVOLOG) ASPART 100 UNITS/ML 10ML VIAL SQ SCH ×3 (06:39→16:52)
[2016-12-20] MEDS: INSULIN SLIDING SCALE (NOVOLOG) 1 VIAL SQ SCH ×3 (06:39→16:52)
[2016-12-20 07:25] LABS: BASOPHIL 0.8 % (0-2.0); MCHC 32.8 g/dl (32.0-35.9); MEAN CELL VOLUME 91.4 fl (80-96); MEAN PLT VOLUME 7.7 fl (7.5-11.1); NEUTROPHILS 68.3 % (42.8-82.8); PLATELET COUNT 136 K/MM3 (134-434); RDW 13.7 % (11.9-15.9); WHITE BLOOD COUNT 9.3 K/mm3 (4.0-10.0)
[2016-12-20 07:45] LABS: ALBUMIN 2.9 g/dl (3.4-5.0); ANION GAP 11 (8-16); BILIRUBIN,TOTAL 0.5 mg/dL (0.2-1.0); CALCIUM 8.6 mg/dL (8.5-10.1); CO2 21 mmol/L (21-32); CREATININE 1.7 mg/dL (0.7-1.3); GLUCOSE,RANDOM 283 mg/dL (74-106); SGOT/AST 19 U/L (15-37); SGPT/ALT 27 U/L (12-78); TOT PROT 6.1 g/dl (6.4-8.2)
[2016-12-20 07:46] LABS: ALK PHOS 105 U/L (45-117)
[2016-12-20] MEDS ORDERED: PT OWN MED DRAWER 7, Y5N ONE (09:06)
[2016-12-20] MEDS: HEPARIN NA (PORCINE) 5,000 UNITS/ML 1ML VIAL SQ SCH ×2 (09:11→21:13)
[2016-12-20] MEDS: SODIUM BICARBONATE 650 MG TABLET PO SCH ×2 (09:17→21:11)
[2016-12-20] MEDS: CLOPIDOGREL BISULFATE 75 MG TABLET (FP) PO SCH (09:17)
[2016-12-20] MEDS: PANTOPRAZOLE 20 MG TABLET (FP) PO SCH (09:17)
[2016-12-20] MEDS: ASPIRIN 81 MG CHEWABLE TABLETS PO SCH (09:18)
[2016-12-20] MEDS: METOPROLOL TARTRATE 25 MG TABLET (FP) PO SCH ×2 (09:18→21:12)
[2016-12-20] MEDS: predniSONE 5 MG TABLET (UD) PO SCH (09:18)
[2016-12-20] MEDS: TACROLIMUS ANHYDROUS 1 MG CAPSULE (NF) PO SCH ×2 (09:19→21:13)
[2016-12-20] MEDS: MYCOPHENOLATE MOFETIL 250 MG CAPSULE PO SCH ×2 (09:19→21:12)
--- NOTE | 2016-12-20 14:05 | PN ---
Progress Note (short form) - Note Progress Note: Awake, eating lunch. Appears overall better. Denies CP or SOB. Intake & Output 12/17/16 12/18/16 12/19/16 12/20/16 23:59 23:59 23:59 23:59 Intake Total 1116 2720 750 Output Total 225 2600 350 Balance 891 120 400 Last Vital Signs Temp Pulse Resp BP Pulse Ox 98.2 F 66 20 135/72 99 12/20/16 06:44 12/20/16 08:38 12/20/16 08:38 12/20/16 08:38 12/20/16 09:00 Active Medications Aspirin (Asa -) 81 mg PO DAILY [facility] Last Admin: 12/20/16 09:18 Dose: 81 mg Clopidogrel Bisulfate (Plavix -) 75 mg PO DAILY [facility] Last Admin: 12/20/16 09:17 Dose: 75 mg Docusate Sodium (Colace -) 100 mg PO TID PRN PRN Reason: CONSTIPATION Heparin Sodium (Porcine) (Heparin -) 5,000 unit SQ BID [facility] Last Admin: 12/20/16 09:11 Dose: 5,000 unit Insulin Aspart (Novolog Vial Sliding Scale -) 1 vial SQ TIDAC [facility] PRN Reason: Protocol Last Admin: 12/20/16 11:21 Dose: 6 units Insulin Aspart (Novolog Vial) 2 units SQ TIDAC [facility] Last Admin: 12/20/16 11:21 Dose: 2 units Insulin Detemir (Levemir Vial) 20 units SQ HS [facility] Last Admin: 12/19/16 21:49 Dose: 20 units Metoprolol Tartrate (Lopressor -) 25 mg PO BID [facility] Last Admin: 12/20/16 09:18 Dose: 25 mg Mycophenolate Mofetil (Cellcept -) 500 mg PO BID [facility] Last Admin: 12/20/16 09:19 Dose: 500 mg Pantoprazole Sodium (Protonix -) 20 mg PO DAILY [facility] Last Admin: 12/20/16 09:17 Dose: 20 mg Prednisone (Deltasone -) 5 mg PO DAILY [facility] Last Admin: 12/20/16 09:18 Dose: 5 mg Senna (Senna -) 1 tab PO DAILY PRN PRN Reason: CONSTIPATION Sodium Bicarbonate (Sodium Bicarbonate -) 1,300 mg PO BID [facility] Last Admin: 08/13/17 09:17 Dose: 1,300 mg Tacrolimus (Prograf (Non-Formulary)) 3 mg PO BID [facility] Last Admin: 12/20/16 09:19 Dose: 3 mg GENERAL: Awake, alert, and oriented, in no acute distress. HEENT: PERRLA, EOMI, no asymetery LUNGS: Breath sounds equal, clear to auscultation bilaterally. No wheezes, and no crackles. No accessory muscle use. HEART: Regular rate and rhythm, normal S1 and S2 without murmur, rub or gallop. ABDOMEN: Soft, nontender, nondistened EXT: trace LE edema NEURO: non focal exam Laboratory Results - last 24 hr 12/19/16 12/19/16 12/20/16 16:37 21:47 05:44 WBC RBC Hgb Hct MCV MCH MCHC RDW Plt Count MPV Neutrophils % Lymphocytes % Monocytes % Eosinophils % Basophils % Sodium Potassium Chloride Carbon Dioxide Anion Gap BUN Creatinine Creat Clearance w eGFR POC Glucometer 322 262 294 Random Glucose Calcium Total Bilirubin AST ALT Alkaline Phosphatase Total Protein Albumin 12/20/16 12/20/16 12/20/16 06:45 06:45 11:17 WBC 9.3 RBC 4.01 Hgb 12.0 Hct 36.7 MCV 91.4 MCH 30.0 MCHC 32.8 RDW 13.7 Plt Count 136 MPV 7.7 Neutrophils % 68.3 Lymphocytes % 19.9 Monocytes % 9.0 Eosinophils % 2.0 Basophils % 0.8 Sodium 141 Potassium 4.8 Chloride 109 H Carbon Dioxide 21 Anion Gap 11 BUN 39 H Creatinine 1.7 H Creat Clearance w eGFR 40.04 POC Glucometer 257 Random Glucose 283 H Calcium 8.6 Total Bilirubin 0.5 D AST 19 D ALT 27 Alkaline Phosphatase 105 Total Protein 6.1 L Albumin 2.9 L IMP: Hyperglycemia/DKA S/P renal transplant February 2016 HTN DM II Suspected resolving Viral Illness Glycemic control O2 as needed PO as tolerated VTE prophylaxis D/C planning Dr Huston
--- NOTE | 2016-12-20 14:55 | PN ---
Progress Note, Physician Chief Complaint: The patient seen in his room. Family visiting. Seems comfortable. Maintains good urine output. No chest pain, No shortness of breath. History of Present Illness: This is a 71 year old Gentleman with PMhx of ESRD s/p DDRT 03-09-2016 (baseline Cr now 1.7-1.9), Hypertension, IDDM, CAD who presented with complaints of weakness and lethargy and found to be hypothermic and hypotensive with suspected sepsis syndrome and DKA with BUN/Cr of 69/3. Pt is on Tacrolimus/Cellcept/Prednisone at home for his renal transplant. No pain over the graft site, No dysuria, hematuria. The patient was noted to be profoundly Hyperglycemic on adission. The Blood glucose i acceptable range. - Current Medication List Current Medications: Active Medications Aspirin (Asa -) 81 mg PO DAILY [facility] Last Admin: 12/20/16 09:18 Dose: 81 mg Clopidogrel Bisulfate (Plavix -) 75 mg PO DAILY [facility] Last Admin: 12/20/16 09:17 Dose: 75 mg Docusate Sodium (Colace -) 100 mg PO TID PRN PRN Reason: CONSTIPATION Heparin Sodium (Porcine) (Heparin -) 5,000 unit SQ BID [facility] Last Admin: 12/20/16 09:11 Dose: 5,000 unit Insulin Aspart (Novolog Vial Sliding Scale -) 1 vial SQ TIDAC [facility] PRN Reason: Protocol Last Admin: 12/20/16 11:21 Dose: 6 units Insulin Aspart (Novolog Vial) 2 units SQ TIDAC [facility] Last Admin: 12/20/16 11:21 Dose: 2 units Insulin Detemir (Levemir Vial) 20 units SQ HS [facility] Last Admin: 12/19/16 21:49 Dose: 20 units Metoprolol Tartrate (Lopressor -) 25 mg PO BID [facility] Last Admin: 12/20/16 09:18 Dose: 25 mg Mycophenolate Mofetil (Cellcept -) 500 mg PO BID [facility] Last Admin: 12/20/16 09:19 Dose: 500 mg Pantoprazole Sodium (Protonix -) 20 mg PO DAILY [facility] Last Admin: 12/20/16 09:17 Dose: 20 mg Prednisone (Deltasone -) 5 mg PO DAILY [facility] Last Admin: 12/20/16 09:18 Dose: 5 mg Senna (Senna -) 1 tab PO DAILY PRN PRN Reason: CONSTIPATION Sodium Bicarbonate (Sodium Bicarbonate -) 1,300 mg PO BID [facility] Last Admin: 12/20/16 09:17 Dose: 1,300 mg Tacrolimus (Prograf (Non-Formulary)) 3 mg PO BID [facility] Last Admin: 12/20/16 09:19 Dose: 3 mg - Objective Vital Signs: Vital Signs Temperature 98.2 F 12/20/16 06:44 Pulse Rate 66 12/20/16 08:38 Respiratory Rate 20 12/20/16 08:38 Blood Pressure 135/72 12/20/16 08:38 O2 Sat by Pulse Oximetry (%) 99 12/20/16 09:00 Constitutional: Yes: Well Nourished, No Distress Eyes: Yes: Conjunctiva Clear HENT: Yes: Atraumatic Neck: Yes: Trachea Midline Cardiovascular: Yes: Regular Rate and Rhythm, S1, S2 Respiratory: Yes: Regular, CTA Bilaterally Gastrointestinal: Yes: Normal Bowel Sounds, Soft Genitourinary: Yes: Other (Renal allograft without any tenderness.). No: CVA Tenderness - Left, CVA Tenderness - Right Edema: No Labs: CBC, BMP 12/20/16 06:45 12/20/16 06:45 INR, PTT INR 1.00 (0.82-1.09) 12/15/16 10:21 Problem List - Problems (1) ESRD (end stage renal disease) Code(s): N18.6 - END STAGE RENAL DISEASE (2) Renal transplant recipient Code(s): Z94.0 - KIDNEY TRANSPLANT STATUS (3) DKA (diabetic ketoacidoses) Code(s): E13.10 - OTH DIABETES MELLITUS WITH KETOACIDOSIS WITHOUT COMA Qualifiers: Diabetes mellitus type: other specified (including LAURA) Diabetes mellitus complication detail: without coma Qualified Code(s): E13.10 - Other specified diabetes mellitus with ketoacidosis without coma (4) Diabetes mellitus, insulin dependent (IDDM), uncontrolled Code(s): E10.65 - TYPE 1 DIABETES MELLITUS WITH HYPERGLYCEMIA Assessment/Plan This is a 71 year old Gentleman with PMhx of ESRD s/p DDRT 03-09-2016 Hyperrtension, IDDM, CAD who presented with complaints of weakness and lethargy and found to be hypothermic and hypotensive with suspected sepsis syndrome and DKA with BUN/Cr of 69/3. Anti-rejection regime includes Tacrolimus/Cellcept/Prednisone Denies any pain over the graft site The Acute Kidney failure due to Hemodynamic changes related to the hyperglycemia. the Renal functions are close to his baseline. Concur with the current management. ? Physical therapy. When discharged, he will return to [facility] for the follow up. Heather Waters MD
--- NOTE | 2016-12-20 17:18 | PN ---
Progress Note (short form) - Note Progress Note: Subjective: no pain , or fever or chills Objective: Vital Signs: Last Vital Signs Temp Pulse Resp BP Pulse Ox 98.0 F 61 20 134/69 99 12/20/16 14:43 12/20/16 14:43 12/20/16 14:43 12/20/16 14:43 12/20/16 09:00 Laboratory Results - last 24 hr 12/19/16 12/20/16 12/20/16 21:47 05:44 06:45 WBC RBC Hgb Hct MCV MCH MCHC RDW Plt Count MPV Neutrophils % Lymphocytes % Monocytes % Eosinophils % Basophils % Sodium 141 Potassium 4.8 Chloride 109 H Carbon Dioxide 21 Anion Gap 11 BUN 39 H Creatinine 1.7 H Creat Clearance w eGFR 40.04 POC Glucometer 262 294 Random Glucose 283 H Calcium 8.6 Total Bilirubin 0.5 D AST 19 D ALT 27 Alkaline Phosphatase 105 Total Protein 6.1 L Albumin 2.9 L 12/20/16 12/20/16 06:45 11:17 WBC 9.3 RBC 4.01 Hgb 12.0 Hct 36.7 MCV 91.4 MCH 30.0 MCHC 32.8 RDW 13.7 Plt Count 136 MPV 7.7 Neutrophils % 68.3 Lymphocytes % 19.9 Monocytes % 9.0 Eosinophils % 2.0 Basophils % 0.8 Sodium Potassium Chloride Carbon Dioxide Anion Gap BUN Creatinine Creat Clearance w eGFR POC Glucometer 257 Random Glucose Calcium Total Bilirubin AST ALT Alkaline Phosphatase Total Protein Albumin Physical Exam: NAD , MMM. AAox3 CV: RRR lungs:CTAB Ext: no edema gait : steady A/P : 71 Y/O gentleman with h/o ESRD s/p renal transplant , CAD , BPH ,and IDDM who presented with fatigue and increased thirst, and was found to have LAVERNE and DKA 1- DKA :resolved. sugar is slightly better controlled. No hypoglycemia - Cont HS levemir to 20 - prandial novolog of 2 in addition to SSI - if needed , can increase dose of standing insulin 2- LAVERNE: likely prerenal in etiology. Cr back to base line - cont prednisone and tacrolimus and cellcept 3- Acute delirium. improved 4- HTN: BP improved -cont BB - cont ARB 4- H/o CAD: cont plavix . - cont BB Dispo :Medically ready for Dc. Accepted at Rehab, but family declined dc to rehab, or to take pt home with VNS Visit type - Emergency Visit Emergency Visit: Yes ED Registration Date: 12/15/16 Care time: The patient presented to the Emergency Department on the above date and was hospitalized for further evaluation of their emergent condition. - New Patient This patient is new to me today: No - Critical Care Critical Care patient: No
[2016-12-20] MEDS ORDERED: INSULIN (NOVOLOG) ASPART 100 UNITS/ML 10ML VIAL ONE (21:02)
[2016-12-20] MEDS: INSULIN DETEMIR 100 UNITS/ML MDV SQ SCH (21:27)
[2016-12-21] MEDS: INSULIN SLIDING SCALE (NOVOLOG) 1 VIAL SQ SCH ×3 (06:48→17:30)
[2016-12-21] MEDS: INSULIN (NOVOLOG) ASPART 100 UNITS/ML 10ML VIAL SQ SCH ×3 (06:49→17:31)
[2016-12-21 08:57] LABS: ALBUMIN 2.8 g/dl (3.4-5.0); ALK PHOS 110 U/L (45-117); ANION GAP 10 (8-16); BILIRUBIN,TOTAL 0.5 mg/dL (0.2-1.0); CALCIUM 8.2 mg/dL (8.5-10.1); CO2 21 mmol/L (21-32); CREATININE 1.8 mg/dL (0.7-1.3); GLUCOSE,RANDOM 257 mg/dL (74-106); PHOSPHOROUS 2.5 mg/dL (2.5-4.9); SGOT/AST 26 U/L (15-37); SGPT/ALT 33 U/L (12-78); TOT PROT 5.8 g/dl (6.4-8.2); URIC ACID 5.4 mg/dL (2.6-7.2)
[2016-12-21] MEDS ORDERED: PT OWN MED DRAWER 7, Y5N ONE ×2 (10:40→21:36)
[2016-12-21] MEDS: ASPIRIN 81 MG CHEWABLE TABLETS PO SCH (10:43)
[2016-12-21] MEDS: MYCOPHENOLATE MOFETIL 250 MG CAPSULE PO SCH ×2 (10:43→23:10)
[2016-12-21] MEDS: predniSONE 5 MG TABLET (UD) PO SCH (10:43)
[2016-12-21] MEDS: METOPROLOL TARTRATE 25 MG TABLET (FP) PO SCH ×2 (10:44→23:12)
[2016-12-21] MEDS: CLOPIDOGREL BISULFATE 75 MG TABLET (FP) PO SCH (10:44)
[2016-12-21] MEDS: HEPARIN NA (PORCINE) 5,000 UNITS/ML 1ML VIAL SQ SCH ×2 (10:44→23:11)
[2016-12-21] MEDS: TACROLIMUS ANHYDROUS 1 MG CAPSULE (NF) PO SCH ×2 (10:45→23:09)
[2016-12-21] MEDS: SODIUM BICARBONATE 650 MG TABLET PO SCH ×2 (10:45→23:11)
[2016-12-21] MEDS: PANTOPRAZOLE 20 MG TABLET (FP) PO SCH (10:45)
[2016-12-21] MEDS: NIFEdipine E.R. 30 MG TABLET (FP) PO SCH ×2 (12:12→23:12)
--- NOTE | 2016-12-21 13:33 | PN ---
Teaching Attending Note Name of Resident: Ana Robertson ATTENDING PHYSICIAN STATEMENT I saw and evaluated the patient. I reviewed the resident's note and discussed the case with the resident. I agree with the resident's findings and plan as documented. SUBJECTIVE: no fever or chills , has no pain . mildly confused last night OBJECTIVE: NAD , MMM. AAox3 CV: RRR Lungs:CTAB Ext: no edema A/P : 71 Y/O gentleman with h/o ESRD s/p renal transplant , CAD , BPH ,and IDDM who presented with fatigue and increased thirst, and was found to have LAVERNE and DKA 1- DKA :resolved. sugar is better controlled. No hypoglycemia - Cont HS levemir 20 - prandial novolog of 2 in addition to SSI 2- LAVERNE: likely prerenal in etiology. Cr back to base line - cont prednisone and tacrolimus and cellcept 3- Acute delirium. improved 4- HTN: continue to be elevated. - resume nifedipine - cont BB - cont ARB 4- H/o CAD: cont plavix . - cont BB Dispo: Medically ready for Dc. D/W CM
[2016-12-21 15:43] LABS: BASOPHIL 0.6 % (0-2.0); EOSINOPHIL 1.7 % (0-4.5); MCH 30.7 pg (25.7-33.7); MCHC 33.6 g/dl (32.0-35.9); MEAN CELL VOLUME 91.3 fl (80-96); MEAN PLT VOLUME 7.8 fl (7.5-11.1); NEUTROPHILS 68.1 % (42.8-82.8); PLATELET COUNT 143 K/MM3 (134-434); RDW 13.8 % (11.9-15.9); WHITE BLOOD COUNT 8.2 K/mm3 (4.0-10.0)
--- NOTE | 2016-12-21 16:12 | PN ---
Progress Note (short form) - Note Progress Note: Renal Follow up for Renal Transplant with LAVERNE Pt seen and examined at the bedside no acute complaints reports good urine output Vital Signs Temperature 98 F 12/21/16 10:00 Pulse Rate 62 12/21/16 14:34 Respiratory Rate 22 12/21/16 14:34 Blood Pressure 140/66 12/21/16 14:34 O2 Sat by Pulse Oximetry (%) 97 12/21/16 09:00 Intake & Output 12/18/16 12/19/16 12/20/16 12/21/16 23:59 23:59 23:59 23:59 Intake Total 2720 750 750 180 Output Total 2600 350 Balance 120 400 750 180 Gen: NAD, awake and alert CVS: RRR, No M/R Lungs: CTA, no rales or wheeze Abd: Soft NT/ND Ext: Trace to 1+ edema CBC, BMP 12/21/16 14:45 12/21/16 07:45 Current Medications Aspirin (Asa -) 81 mg PO DAILY [facility] Last Admin: 12/21/16 10:43 Dose: 81 mg Clopidogrel Bisulfate (Plavix -) 75 mg PO DAILY [facility] Last Admin: 12/21/16 10:44 Dose: 75 mg Docusate Sodium (Colace -) 100 mg PO TID PRN PRN Reason: CONSTIPATION Heparin Sodium (Porcine) (Heparin -) 5,000 unit SQ BID [facility] Last Admin: 12/21/16 10:44 Dose: 5,000 unit Insulin Aspart (Novolog Vial Sliding Scale -) 1 vial SQ TIDAC [facility] PRN Reason: Protocol Last Admin: 12/21/16 12:12 Dose: 4 units Insulin Aspart (Novolog Vial) 2 units SQ TIDAC [facility] Last Admin: 12/21/16 12:13 Dose: 2 units Insulin Detemir (Levemir Vial) 20 units SQ HS [facility] Last Admin: 12/20/16 21:27 Dose: 20 units Metoprolol Tartrate (Lopressor -) 25 mg PO BID [facility] Last Admin: 12/21/16 10:44 Dose: 25 mg Mycophenolate Mofetil (Cellcept -) 500 mg PO BID [facility] Last Admin: 12/21/16 10:43 Dose: 500 mg Nifedipine (Procardia Xl -) 30 mg PO BID [facility] Last Admin: 12/21/16 12:12 Dose: 30 mg Pantoprazole Sodium (Protonix -) 20 mg PO DAILY [facility] Last Admin: 12/21/16 10:45 Dose: 20 mg Prednisone (Deltasone -) 5 mg PO DAILY [facility] Last Admin: 12/21/16 10:43 Dose: 5 mg Senna (Senna -) 1 tab PO DAILY PRN PRN Reason: CONSTIPATION Sodium Bicarbonate (Sodium Bicarbonate -) 1,300 mg PO BID [facility] Last Admin: 12/21/16 10:45 Dose: 1,300 mg Tacrolimus (Prograf (Non-Formulary)) 3 mg PO BID [facility] Last Admin: 12/21/16 10:45 Dose: 3 mg A/P 71 year old Gentleman with PMhx of ESRD s/p 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 #ESRD s/p Renal Transplant (baseline Cr 1.7-1.9) with acute kidney Injury Renal function now improved and stable continue Tacolimus/Cellcept/Prednisone follow with transplant center on discharge #DKA/Insulin dependent DM improved inuslin titration as per primary team #Lactic acidosis/Metabolic acidosis from sepsis/hypovolemia associated with DKA no resolved #Sepsis r/o bacterial infection vs. viral syndrome cultures collected, no growth reported to date not currently on Abx #Hypertension hold nifedpine because of lower bP Pedro Villalobos DO Problem List - Problems (1) DKA (diabetic ketoacidoses) Code(s): E13.10 - OTH DIABETES MELLITUS WITH KETOACIDOSIS WITHOUT COMA Qualifiers: Diabetes mellitus type: other specified (including LAURA) Diabetes mellitus complication detail: without coma Qualified Code(s): E13.10 - Other specified diabetes mellitus with ketoacidosis without coma (2) Diabetes mellitus, insulin dependent (IDDM), uncontrolled Code(s): E10.65 - TYPE 1 DIABETES MELLITUS WITH HYPERGLYCEMIA (3) Renal transplant disorder Code(s): T86.10 - UNSPECIFIED COMPLICATION OF KIDNEY TRANSPLANT (4) CKD (chronic kidney disease) Code(s): N18.9 - CHRONIC KIDNEY DISEASE, UNSPECIFIED (5) ESRD (end stage renal disease) Code(s): N18.6 - END STAGE RENAL DISEASE (6) Hypertension Code(s): I10 - ESSENTIAL (PRIMARY) HYPERTENSION (7) Leukocytosis Code(s): D72.829 - ELEVATED WHITE BLOOD CELL COUNT, UNSPECIFIED (8) Hypothermia Code(s): T68.XXXA - HYPOTHERMIA, INITIAL ENCOUNTER
[2016-12-21] MEDS ORDERED: INSULIN (NOVOLOG) ASPART 100 UNITS/ML 10ML VIAL ONE (17:45)
--- NOTE | 2016-12-21 19:48 | PN ---
Physical Exam: SUBJECTIVE: Patient seen and examined this AM. Overnight patient was confused, able to be reoriented for a minute, but would become confused. Needed constant watching. Pt is AAO x3 but confused during the conversation OBJECTIVE: Vital Signs Period Temp Pulse Resp BP Sys/Esposito Pulse Ox Last 24 Hr 97.9 F-98.1 F 60-76 18-22 140-173/66-89 97-98 GENERAL: AAOx3, NAD, confused during the conversations HEENT: PERRLA, EOMi, no cervical LAD LUNG: CTABL, no labored respirations CV: S1, S2, RRR ABD: Soft, NT, ND, normoactive BS MSK: No edema, no erythema NEURO: CN 2-12 intact, sensation equal and intact in face/body, MSK 5/5 in all extremities, reflexes 1+ Laboratory Results - last 24 hr 12/20/16 12/21/16 12/21/16 21:19 05:54 07:45 WBC RBC Hgb Hct MCV MCH MCHC RDW Plt Count MPV Neutrophils % Lymphocytes % Monocytes % Eosinophils % Basophils % Sodium 142 Potassium 4.9 Chloride 111 H Carbon Dioxide 21 Anion Gap 10 BUN 46 H Creatinine 1.8 H Creat Clearance w eGFR 37.49 POC Glucometer 268 244 Random Glucose 257 H Uric Acid 5.4 Calcium 8.2 L Phosphorus 2.5 Total Bilirubin 0.5 AST 26 D ALT 33 D Alkaline Phosphatase 110 Total Protein 5.8 L Albumin 2.8 L 12/21/16 12/21/16 12/21/16 11:58 14:45 17:28 WBC 8.2 RBC 3.83 L Hgb 11.8 Hct 35.0 L MCV 91.3 MCH 30.7 MCHC 33.6 RDW 13.8 Plt Count 143 MPV 7.8 Neutrophils % 68.1 Lymphocytes % 19.9 Monocytes % 9.7 Eosinophils % 1.7 Basophils % 0.6 Sodium Potassium Chloride Carbon Dioxide Anion Gap BUN Creatinine Creat Clearance w eGFR POC Glucometer 207 309 Random Glucose Uric Acid Calcium Phosphorus Total Bilirubin AST ALT Alkaline Phosphatase Total Protein Albumin Active Medications Generic Name Dose Route Start Last Admin Trade Name Freq PRN Reason Stop Dose Admin Aspirin 81 mg 12/19/16 10:00 12/21/16 10:43 Asa - PO 81 mg DAILY KAT Administration Clopidogrel Bisulfate 75 mg 12/17/16 10:00 12/21/16 10:44 Plavix - PO 75 mg DAILY KAT Administration Docusate Sodium 100 mg 12/16/16 21:17 Colace - PO TID PRN CONSTIPATION Heparin Sodium (Porcine) 5,000 unit 12/16/16 22:00 12/21/16 10:44 Heparin - SQ 5,000 unit BID KAT Administration Insulin Aspart 1 vial 12/17/16 07:00 12/21/16 17:30 Novolog Vial Sliding Scale - SQ 8 units TIDAC KAT Administration Protocol Insulin Aspart 2 units 12/19/16 16:30 12/21/16 17:31 Novolog Vial SQ 2 units TIDAC KAT Administration Insulin Detemir 20 units 12/19/16 14:23 12/20/16 21:27 Levemir Vial SQ 20 units HS KAT Administration Metoprolol Tartrate 25 mg 12/18/16 22:00 12/21/16 10:44 Lopressor - PO 25 mg BID KAT Administration Mycophenolate Mofetil 500 mg 12/18/16 22:00 12/21/16 10:43 Cellcept - PO 500 mg BID KAT Administration Nifedipine 30 mg 12/21/16 11:00 12/21/16 12:12 Procardia Xl - PO 30 mg BID KAT Administration Pantoprazole Sodium 20 mg 12/17/16 10:00 12/21/16 10:45 Protonix - PO 20 mg DAILY KAT Administration Prednisone 5 mg 12/17/16 10:00 12/21/16 10:43 Deltasone - PO 5 mg DAILY KAT Administration Senna 1 tab 12/16/16 21:17 Senna - PO DAILY PRN CONSTIPATION Sodium Bicarbonate 1,300 mg 12/16/16 22:00 12/21/16 10:45 Sodium Bicarbonate - PO 1,300 mg BID KAT Administration Tacrolimus 3 mg 12/16/16 22:00 12/21/16 10:45 Prograf (Non-Formulary) PO 3 mg BID KAT Administration ASSESSMENT/PLAN: Pt is a 71yo M with a PMHx of IDDM2, ESRD (s/p transplant) who presented to the ER by EMS after an episode of weakness and lethargy and found to have a glucose >400. He was found to be hypothermic and hypotensive with suspected sepsis and DKA, likely due to improper insulin usage. He received IVNS Bolus and insulin drip in the ICU. # Diabetic Ketoacidosis - resolved - Gap closed, on Levemir 20 + SSI - 2u standing prandial insulin premeal - Sugars in the 200s # Acute Delirium - Head CT neg - Keep oriented, will need rehab # LAVERNE on CKD - improved - Cr at baseline after fluids - D/c'd fluids - Renally dose all meds # Hx of ESRD s/p renal transplant - Continue Prednisone + Tacrolimus + Na Bicarb + Cellcept # HTN - Continue Metoprolol 25mg BID - Restarted Nifedipine 30mg BID - Hold Losartan for LAVERNE, possibly start at d/c # Hx of CAD - Continue ASA 81mg + Plavix 75mg # Hx of BPH - Held Flomax due to presenting low BP - Good UOP, will continue at discharge # FEN - Fluids: Held - Electrolytes: BMP Q4 - Nutrition: Diabetic diet # Prophylaxis - DVT: Heparin SQ 5000 BID - GI: Protonix home med - Deconditioning: PT ordered # Code Status - Pt states he is DNI not DNR # Dispo - Pt refused d/c yesterday, medicare has 72 hours to come up with decision, f/u tmrw - Pt denied PT Visit type - Emergency Visit Emergency Visit: No - New Patient This patient is new to me today: No - Critical Care Critical Care patient: No - Discharge Referral Referred to [facility] Med P.C.: No
[2016-12-21] MEDS: INSULIN DETEMIR 100 UNITS/ML MDV SQ SCH (23:10)
[2016-12-22] MEDS: INSULIN SLIDING SCALE (NOVOLOG) 1 VIAL SQ SCH ×4 (07:00→18:01)
[2016-12-22] MEDS: INSULIN (NOVOLOG) ASPART 100 UNITS/ML 10ML VIAL SQ SCH ×3 (07:02→18:00)
[2016-12-22] MEDS ORDERED: PT OWN MED DRAWER 7, Y5N ONE ×2 (07:39→21:04)
[2016-12-22 08:28] LABS: MCHC 32.8 g/dl (32.0-35.9); MEAN CELL VOLUME 91.5 fl (80-96); MEAN PLT VOLUME 7.7 fl (7.5-11.1); PLATELET COUNT 138 K/MM3 (134-434); RDW 13.6 % (11.9-15.9); WHITE BLOOD COUNT 7.5 K/mm3 (4.0-10.0)
[2016-12-22 08:52] LABS: ANION GAP 7 (8-16); CALCIUM 8.9 mg/dL (8.5-10.1); CO2 22 mmol/L (21-32); GLUCOSE,RANDOM 258 mg/dL (74-106)
[2016-12-22 08:53] LABS: CREATININE 1.5 mg/dL (0.7-1.3)
[2016-12-22] MEDS: predniSONE 5 MG TABLET (UD) PO SCH (10:31)
[2016-12-22] MEDS: PANTOPRAZOLE 20 MG TABLET (FP) PO SCH (10:31)
[2016-12-22] MEDS: SODIUM BICARBONATE 650 MG TABLET PO SCH ×2 (10:31→22:10)
[2016-12-22] MEDS: ASPIRIN 81 MG CHEWABLE TABLETS PO SCH (10:31)
[2016-12-22] MEDS: METOPROLOL TARTRATE 25 MG TABLET (FP) PO SCH ×2 (10:31→22:11)
[2016-12-22] MEDS: CLOPIDOGREL BISULFATE 75 MG TABLET (FP) PO SCH (10:31)
[2016-12-22] MEDS: HEPARIN NA (PORCINE) 5,000 UNITS/ML 1ML VIAL SQ SCH ×2 (10:31→22:11)
[2016-12-22] MEDS: LOSARTAN POTASSIUM 25 MG TABLET PO SCH (10:31)
[2016-12-22] MEDS: MYCOPHENOLATE MOFETIL 250 MG CAPSULE PO SCH ×2 (10:32→22:12)
[2016-12-22] MEDS: TACROLIMUS ANHYDROUS 1 MG CAPSULE (NF) PO SCH ×2 (10:32→22:12)
[2016-12-22] MEDS: NIFEdipine E.R. 30 MG TABLET (FP) PO SCH (12:24)
--- NOTE | 2016-12-22 13:44 | PN ---
Progress Note (short form) - Note Progress Note: Renal Follow up for Renal Transplant with [facility]ER[facility] Pt seen and examined at the bedside no acute complaints Vital Signs Temperature 97.7 F 12/22/16 08:45 Pulse Rate 65 12/22/16 08:45 Respiratory Rate 20 12/22/16 08:45 Blood Pressure 131/67 12/22/16 08:45 O2 Sat by Pulse Oximetry (%) 97 12/21/16 21:00 Intake & Output 12/19/16 12/20/16 12/21/16 12/22/16 23:59 23:59 23:59 23:59 Intake Total 750 750 180 280 Output Total 350 Balance 400 750 180 280 Gen: NAD, awake and alert CVS: RRR, No M/R Lungs: CTA, no rales or wheeze Abd: Soft NT/ND Ext: Trace to 1+ edema CBC, BMP 12/22/16 08:05 12/22/16 08:05 Current Medications Aspirin (Asa -) 81 mg PO DAILY [facility] Last Admin: 12/22/16 10:31 Dose: 81 mg Clopidogrel Bisulfate (Plavix -) 75 mg PO DAILY [facility] Last Admin: 12/22/16 10:31 Dose: 75 mg Docusate Sodium (Colace -) 100 mg PO TID PRN PRN Reason: CONSTIPATION Heparin Sodium (Porcine) (Heparin -) 5,000 unit SQ BID [facility] Last Admin: 12/22/16 10:31 Dose: 5,000 unit Insulin Aspart (Novolog Vial Sliding Scale -) 1 vial SQ TIDAC [facility] PRN Reason: Protocol Last Admin: 12/22/16 12:25 Dose: 8 units Insulin Aspart (Novolog Vial) 2 units SQ TIDAC [facility] Last Admin: 12/22/16 12:26 Dose: 2 units Insulin Detemir (Levemir Vial) 20 units SQ HS [facility] Last Admin: 12/21/16 23:10 Dose: 20 units Losartan Potassium (Cozaar -) 25 mg PO DAILY [facility] Last Admin: 12/22/16 10:31 Dose: 25 mg Metoprolol Tartrate (Lopressor -) 25 mg PO BID [facility] Last Admin: 12/22/16 10:31 Dose: 25 mg Mycophenolate Mofetil (Cellcept -) 500 mg PO BID [facility] Last Admin: 12/22/16 10:32 Dose: 500 mg Pantoprazole Sodium (Protonix -) 20 mg PO DAILY [facility] Last Admin: 12/22/16 10:31 Dose: 20 mg Prednisone (Deltasone -) 5 mg PO DAILY [facility] Last Admin: 12/22/16 10:31 Dose: 5 mg Senna (Senna -) 1 tab PO DAILY PRN PRN Reason: CONSTIPATION Sodium Bicarbonate (Sodium Bicarbonate -) 1,300 mg PO BID [facility] Last Admin: 12/22/16 10:31 Dose: 1,300 mg Tacrolimus (Prograf (Non-Formulary)) 3 mg PO BID [facility] Last Admin: 12/22/16 10:32 Dose: 3 mg A/P 71 year old Gentleman with PMhx of ESRD s/p 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 #ESRD s/p Renal Transplant (baseline Cr 1.7-1.9) with acute kidney Injury Renal function remains stable continue Tacolimus/Cellcept/Prednisone oral fluid intake as tolerated trend BUN/Cr as inpatient continue sodium bicarb PO BID to follow up with transplant center on discharge Pedro Villalobos DO Problem List - Problems (1) DKA (diabetic ketoacidoses) Code(s): E13.10 - OTH DIABETES MELLITUS WITH KETOACIDOSIS WITHOUT COMA Qualifiers: Diabetes mellitus type: other specified (including LAURA) Diabetes mellitus complication detail: without coma Qualified Code(s): E13.10 - Other specified diabetes mellitus with ketoacidosis without coma (2) Diabetes mellitus, insulin dependent (IDDM), uncontrolled Code(s): E10.65 - TYPE 1 DIABETES MELLITUS WITH HYPERGLYCEMIA (3) Renal transplant disorder Code(s): T86.10 - UNSPECIFIED COMPLICATION OF KIDNEY TRANSPLANT (4) CKD (chronic kidney disease) Code(s): N18.9 - CHRONIC KIDNEY DISEASE, UNSPECIFIED (5) ESRD (end stage renal disease) Code(s): N18.6 - END STAGE RENAL DISEASE (6) Hypertension Code(s): I10 - ESSENTIAL (PRIMARY) HYPERTENSION (7) Leukocytosis Code(s): D72.829 - ELEVATED WHITE BLOOD CELL COUNT, UNSPECIFIED (8) Hypothermia Code(s): T68.XXXA - HYPOTHERMIA, INITIAL ENCOUNTER
--- NOTE | 2016-12-22 14:25 | PN ---
Teaching Attending Note Name of Resident: Ana Robertson ATTENDING PHYSICIAN STATEMENT I saw and evaluated the patient. I reviewed the resident's note and discussed the case with the resident. I agree with the resident's findings and plan as documented. SUBJECTIVE: nof ever ro chills, has nopain of JUDGE . has no N/V OBJECTIVE: NAD , MMM. CV: RRR Lungs:CTAB Ext: no edema A/P : 71 Y/O gentleman with h/o ESRD s/p renal transplant , CAD , BPH ,and IDDM who presented with fatigue and increased thirst, and was found to have LAVERNE and DKA 1- DKA :resolved. sugar is better controlled. No hypoglycemia - increase HS levemir to 22 units - prandial novolog of 2 in addition to SSI 2- LAVERNE: likely prerenal in etiology. Cr back to base line - cont prednisone and tacrolimus and cellcept 3- Acute delirium. improved 4- HTN: continue to be elevated. - change nifedipine to once a day - cont BB - resume ARb ( ARB were not resumed by mistake ) 4- H/o CAD: cont plavix . - cont BB Dispo: Medically ready for Dc
--- NOTE | 2016-12-22 14:41 | PN ---
Physical Exam: SUBJECTIVE: Patient seen and examined this AM. AAO x3 but confused during the converastion, unchanged from yesterday. No fevers, no chills, no CP, no SOB OBJECTIVE: Vital Signs Period Temp Pulse Resp BP Sys/Esposito Pulse Ox Last 24 Hr 97.7 F-98.4 F 65-69 20-20 125-154/59-70 97 GENERAL: AAOx3, NAD, confused during the conversations HEENT: PERRLA, EOMi, no cervical LAD LUNG: CTABL, no labored respirations CV: S1, S2, RRR ABD: Soft, NT, ND, normoactive BS MSK: No edema, no erythema NEURO: CN 2-12 intact, sensation equal and intact in face/body, MSK 5/5 in all extremities, reflexes 1+ Laboratory Results - last 24 hr 12/21/16 12/21/16 12/21/16 14:45 17:28 23:17 WBC 8.2 RBC 3.83 L Hgb 11.8 Hct 35.0 L MCV 91.3 MCH 30.7 MCHC 33.6 RDW 13.8 Plt Count 143 MPV 7.8 Neutrophils % 68.1 Lymphocytes % 19.9 Monocytes % 9.7 Eosinophils % 1.7 Basophils % 0.6 Sodium Potassium Chloride Carbon Dioxide Anion Gap BUN Creatinine POC Glucometer 309 176 Random Glucose Calcium 12/22/16 12/22/16 12/22/16 06:59 08:05 08:05 WBC 7.5 RBC 4.08 Hgb 12.3 Hct 37.3 MCV 91.5 MCH 30.0 MCHC 32.8 RDW 13.6 Plt Count 138 MPV 7.7 Neutrophils % Lymphocytes % Monocytes % Eosinophils % Basophils % Sodium 143 Potassium 4.6 Chloride 114 H Carbon Dioxide 22 Anion Gap 7 L BUN 37 H Creatinine 1.5 H POC Glucometer 294 Random Glucose 258 H Calcium 8.9 12/22/16 11:37 WBC RBC Hgb Hct MCV MCH MCHC RDW Plt Count MPV Neutrophils % Lymphocytes % Monocytes % Eosinophils % Basophils % Sodium Potassium Chloride Carbon Dioxide Anion Gap BUN Creatinine POC Glucometer 348 Random Glucose Calcium Active Medications Generic Name Dose Route Start Last Admin Trade Name Freq PRN Reason Stop Dose Admin Aspirin 81 mg 12/19/16 10:00 12/22/16 10:31 Asa - PO 81 mg DAILY KAT Administration Clopidogrel Bisulfate 75 mg 08/10/17 10:00 12/22/16 10:31 Plavix - PO 75 mg DAILY KAT Administration Docusate Sodium 100 mg 12/16/16 21:17 Colace - PO TID PRN CONSTIPATION Heparin Sodium (Porcine) 5,000 unit 12/16/16 22:00 12/22/16 10:31 Heparin - SQ 5,000 unit BID KAT Administration Insulin Aspart 1 vial 12/17/16 07:00 12/22/16 12:25 Novolog Vial Sliding Scale - SQ 8 units TIDAC KAT Administration Protocol Insulin Aspart 2 units 12/19/16 16:30 12/22/16 12:26 Novolog Vial SQ 2 units TIDAC KAT Administration Insulin Detemir 22 units 12/22/16 14:32 Levemir Vial SQ HS KAT Losartan Potassium 25 mg 12/22/16 10:15 12/22/16 10:31 Cozaar - PO 25 mg DAILY KAT Administration Metoprolol Tartrate 25 mg 12/18/16 22:00 12/22/16 10:31 Lopressor - PO 25 mg BID KAT Administration Mycophenolate Mofetil 500 mg 12/18/16 22:00 12/22/16 10:32 Cellcept - PO 500 mg BID KAT Administration Pantoprazole Sodium 20 mg 12/17/16 10:00 12/22/16 10:31 Protonix - PO 20 mg DAILY KAT Administration Prednisone 5 mg 12/17/16 10:00 12/22/16 10:31 Deltasone - PO 5 mg DAILY KAT Administration Senna 1 tab 12/16/16 21:17 Senna - PO DAILY PRN CONSTIPATION Sodium Bicarbonate 1,300 mg 12/16/16 22:00 12/22/16 10:31 Sodium Bicarbonate - PO 1,300 mg BID KAT Administration Tacrolimus 3 mg 12/16/16 22:00 12/22/16 10:32 Prograf (Non-Formulary) PO 3 mg BID KAT Administration ASSESSMENT/PLAN: Pt is a 71yo M with a PMHx of IDDM2, ESRD (s/p transplant) who presented to the ER by EMS after an episode of weakness and lethargy and found to have a glucose >400. He was found to be hypothermic and hypotensive with suspected sepsis and DKA, likely due to improper insulin usage. He received IVNS Bolus and insulin drip in the ICU. # Diabetic Ketoacidosis - resolved - Increased Levemir to 22u, if AM glucose >150 then increase to 25u at night - 2u standing prandial insulin premeal - Continue SSI # Acute Delirium - Spoke to primary care doctor Dr. Paris who will work him up outpatient - Head CT neg - No need for psych consult - Keep oriented # LAVERNE on CKD - improved - Cr at baseline after fluids - D/c'd fluids - Renally dose all meds # Hx of ESRD s/p renal transplant - Continue Prednisone + Tacrolimus + Na Bicarb + Cellcept # HTN - Continue Metoprolol 25mg BID - Restarted Losartan daily - Nifedipine changed from BID --> QD # Hx of CAD - Continue ASA 81mg + Plavix 75mg # Hx of BPH - Held Flomax due to presenting low BP - Good UOP, will continue at discharge # FEN - Fluids: Held - Electrolytes: BMP Q4 - Nutrition: Diabetic diet # Prophylaxis - DVT: Heparin SQ 5000 BID - GI: Protonix home med - Deconditioning: Pt refused PT # Dispo - Medically cleared for discharge - Spoke to PCP Dr. Paris at [facility] who stated pt's sister Ansley is now ammenable to rehab - human resources talent manager will confirm, possibly d/c soon. - D/c ordered already in Visit type - Emergency Visit Emergency Visit: No - New Patient This patient is new to me today: No - Critical Care Critical Care patient: No - Discharge Referral Referred to [facility] Med P.C.: No
--- NOTE | 2016-12-22 17:40 | PN ---
Progress Note (short form) - Note Progress Note: Denies any complaints Chart reviewed FS 200s, No HYpos Vital Signs Period Temp Pulse Resp BP Sys/Esposito Pulse Ox Last 24 Hr 97.7 F-98.4 F 65-69 20-22 125-154/59-70 96-97 PE; Awake, alert Neck: Supple, No JVD HEENT: EOMI Lungs: CTA CVS: S1S2 Abd: Benign Ext: No edema CMP Sodium 143 mmol/L (136-145) 12/22/16 08:05 Potassium 4.6 mmol/L (3.5-5.1) 12/22/16 08:05 Chloride 114 mmol/L (98-107) H 12/22/16 08:05 Carbon Dioxide 22 mmol/L (21-32) 12/22/16 08:05 Anion Gap 7 (8-16) L 12/22/16 08:05 BUN 37 mg/dL (7-18) H 12/22/16 08:05 Creatinine 1.5 mg/dL (0.7-1.3) H 12/22/16 08:05 Creat Clearance w eGFR 37.49 (>60) 12/21/16 07:45 POC Glucometer 348 UNITS (()) 12/22/16 11:37 Random Glucose 258 mg/dL (74-106) H 12/22/16 08:05 Hemoglobin A1c % 8.4 % (4.8-6.0) H D 12/16/16 05:20 Lactic Acid 1.9 mmol/L (0.4-2.0) 12/15/16 14:00 Uric Acid 5.4 mg/dL (2.6-7.2) 12/21/16 07:45 Calcium 8.9 mg/dL (8.5-10.1) 12/22/16 08:05 Phosphorus 2.5 mg/dL (2.5-4.9) 12/21/16 07:45 Magnesium 2.1 mg/dL (1.8-2.4) 12/18/16 06:10 Total Bilirubin 0.5 mg/dL (0.2-1.0) 12/21/16 07:45 AST 26 U/L (15-37) D 12/21/16 07:45 ALT 33 U/L (12-78) D 12/21/16 07:45 Alkaline Phosphatase 110 U/L (45-117) 12/21/16 07:45 Ammonia 53.37 umol/L (11-32) H 12/15/16 11:33 Creatine Kinase 174 IU/L (39-308) 12/16/16 05:20 Creatine Kinase Index 1.7 % (0.0-5.0) 12/16/16 05:20 CK-MB (CK-2) 3.095 ng/mL (0.5-3.6) 12/16/16 05:20 Troponin I < 0.02 ng/ml (0.00-0.05) D 12/15/16 10:21 Total Protein 5.8 g/dl (6.4-8.2) L 12/21/16 07:45 Albumin 2.8 g/dl (3.4-5.0) L 12/21/16 07:45 Current Medications Generic Name Dose Route Start Last Admin Trade Name Freq PRN Reason Stop Dose Admin Aspirin 81 mg 12/19/16 10:00 12/22/16 10:31 Asa - PO 81 mg DAILY KAT Administration Clopidogrel Bisulfate 75 mg 12/17/16 10:00 12/22/16 10:31 Plavix - PO 75 mg DAILY KAT Administration Docusate Sodium 100 mg 12/16/16 21:17 Colace - PO TID PRN CONSTIPATION Heparin Sodium (Porcine) 5,000 unit 12/16/16 22:00 12/22/16 10:31 Heparin - SQ 5,000 unit BID KAT Administration Insulin Aspart 1 vial 12/17/16 07:00 12/22/16 12:25 Novolog Vial Sliding Scale - SQ 8 units TIDAC [facility] Administration Protocol Insulin Aspart 2 units 12/19/16 16:30 12/22/16 12:26 Novolog Vial SQ 2 units TIDAC [facility] Administration Insulin Detemir 22 units 12/22/16 22:00 Levemir Vial SQ HS [facility] Losartan Potassium 25 mg 12/22/16 10:15 12/22/16 10:31 Cozaar - PO 25 mg DAILY KAT Administration Metoprolol Tartrate 25 mg 12/18/16 22:00 12/22/16 10:31 Lopressor - PO 25 mg BID [facility] Administration Mycophenolate Mofetil 500 mg 12/18/16 22:00 12/22/16 10:32 Cellcept - PO 500 mg BID KAT Administration Pantoprazole Sodium 20 mg 12/17/16 10:00 12/22/16 10:31 Protonix - PO 20 mg DAILY KAT Administration Prednisone 5 mg 12/17/16 10:00 12/22/16 10:31 Deltasone - PO 5 mg DAILY KAT Administration Senna 1 tab 12/16/16 21:17 Senna - PO DAILY PRN CONSTIPATION Sodium Bicarbonate 1,300 mg 12/16/16 22:00 12/22/16 10:31 Sodium Bicarbonate - PO 1,300 mg BID KAT Administration Tacrolimus 3 mg 12/16/16 22:00 12/22/16 10:32 Prograf (Non-Formulary) PO 3 mg BID KAT Administration AP: DKA: resolved T2DM: uncontrolled LAVERNE S/P renal transplant HTN Levemir increased to 22, Will probably need more as blood sugar in the morning >200. Rec increase to 25 tomorrow if fasting blood sugar > 150 Increase Novolog SS coverage. On Novolog 2 units TID with meals with the SS coverage Will f/u
[2016-12-22] MEDS ORDERED: NIFEdipine E.R. 30 MG TABLET (FP) PO SCH (18:00)
[2016-12-22] MEDS ORDERED: INSULIN DETEMIR 100 UNITS/ML MDV SQ SCH (22:00)
[2016-12-22] MEDS ORDERED: INSULIN SLIDING SCALE (NOVOLOG) 1 VIAL SQ SCH (22:00)
[2016-12-22] MEDS ORDERED: Insulin (LOG) Aspart 100 UNITS/ML VIAL SQ ONE (23:55)
[2016-12-23 01:27] LABS: ANION GAP 10 (8-16); CALCIUM 8.3 mg/dL (8.5-10.1); CO2 21 mmol/L (21-32); CREATININE 1.8 mg/dL (0.7-1.3)
[2016-12-23 01:28] LABS: GLUCOSE,RANDOM 489 mg/dL (74-106)
[2016-12-23] MEDS ORDERED: Insulin (LOG) Aspart 100 UNITS/ML VIAL SQ ONE (01:35)
[2016-12-23] MEDS: INSULIN SLIDING SCALE (NOVOLOG) 1 VIAL SQ SCH ×3 (06:26→15:00)
[2016-12-23] MEDS: INSULIN (NOVOLOG) ASPART 100 UNITS/ML 10ML VIAL SQ SCH (06:26)
[2016-12-23] MEDS ORDERED: INSULIN SLIDING SCALE (NOVOLOG) 1 VIAL SQ SCH (07:21)
--- NOTE | 2016-12-23 07:28 | PN ---
Physical Exam: SUBJECTIVE: Patient seen and examined this AM. AAO x2 today, still confused during the conversation. Pt was slightly confused last night, can be re- oriented. No fever, no chills, no CP, no SOB OBJECTIVE: Vital Signs Period Temp Pulse Resp BP Sys/Esposito Pulse Ox Last 24 Hr 97.7 F-98.4 F 62-82 20-22 102-158/45-75 96-96 GENERAL: AAOx2, NAD, confused during the conversations HEENT: PERRLA, EOMi, no cervical LAD LUNG: CTABL, no labored respirations CV: S1, S2, RRR ABD: Soft, NT, ND, normoactive BS MSK: No edema, no erythema NEURO: CN 2-12 intact, sensation equal and intact in face/body, MSK 5/5 in all extremities, reflexes 1+ Laboratory Results - last 24 hr 12/22/16 12/22/16 12/22/16 08:05 08:05 11:37 WBC 7.5 RBC 4.08 Hgb 12.3 Hct 37.3 MCV 91.5 MCH 30.0 MCHC 32.8 RDW 13.6 Plt Count 138 MPV 7.7 Sodium 143 Potassium 4.6 Chloride 114 H Carbon Dioxide 22 Anion Gap 7 L BUN 37 H Creatinine 1.5 H POC Glucometer 348 Random Glucose 258 H Calcium 8.9 12/22/16 12/22/16 12/23/16 17:42 23:42 00:30 WBC RBC Hgb Hct MCV MCH MCHC RDW Plt Count MPV Sodium 141 Potassium 4.9 Chloride 110 H Carbon Dioxide 21 Anion Gap 10 BUN 48 H D Creatinine 1.8 H POC Glucometer 289 466 Random Glucose 489 H* D Calcium 8.3 L 12/23/16 12/23/16 12/23/16 01:15 03:36 05:56 WBC RBC Hgb Hct MCV MCH MCHC RDW Plt Count MPV Sodium Potassium Chloride Carbon Dioxide Anion Gap BUN Creatinine POC Glucometer 400 172 83 Random Glucose Calcium Active Medications Generic Name Dose Route Start Last Admin Trade Name Freq PRN Reason Stop Dose Admin Aspirin 81 mg 12/19/16 10:00 12/22/16 10:31 Asa - PO 81 mg DAILY KAT Administration Clopidogrel Bisulfate 75 mg 12/17/16 10:00 12/22/16 10:31 Plavix - PO 75 mg DAILY KAT Administration Docusate Sodium 100 mg 12/16/16 21:17 Colace - PO TID PRN CONSTIPATION Heparin Sodium (Porcine) 5,000 unit 12/16/16 22:00 12/22/16 22:11 Heparin - SQ 5,000 unit BID KAT Administration Insulin Aspart 2 units 12/19/16 16:30 12/23/16 06:26 Novolog Vial SQ Not Given TIDAC KAT Insulin Aspart 1 vial 12/22/16 17:41 12/23/16 06:26 Novolog Vial Sliding Scale - SQ Not Given TIDAC [facility] Protocol Insulin Aspart 1 vial 12/23/16 07:21 Novolog Vial Sliding Scale - SQ HS [facility] Protocol Insulin Detemir 22 units 12/22/16 22:00 12/22/16 22:30 Levemir Vial SQ 22 units HS KAT Administration Losartan Potassium 25 mg 12/22/16 10:15 12/22/16 10:31 Cozaar - PO 25 mg DAILY KAT Administration Metoprolol Tartrate 25 mg 12/18/16 22:00 12/22/16 22:11 Lopressor - PO 25 mg BID KAT Administration Mycophenolate Mofetil 500 mg 12/18/16 22:00 12/22/16 22:12 Cellcept - PO 500 mg BID KAT Administration Pantoprazole Sodium 20 mg 12/17/16 10:00 12/22/16 10:31 Protonix - PO 20 mg DAILY KAT Administration Prednisone 5 mg 12/17/16 10:00 12/22/16 10:31 Deltasone - PO 5 mg DAILY KAT Administration Senna 1 tab 12/16/16 21:17 Senna - PO DAILY PRN CONSTIPATION Sodium Bicarbonate 1,300 mg 12/16/16 22:00 12/22/16 22:10 Sodium Bicarbonate - PO 1,300 mg BID KAT Administration Tacrolimus 3 mg 12/16/16 22:00 12/22/16 22:12 Prograf (Non-Formulary) PO 3 mg BID KAT Administration ASSESSMENT/PLAN: Pt is a 71yo M with a PMHx of IDDM2, ESRD (s/p transplant) who presented to the ER by EMS after an episode of weakness and lethargy and found to have a glucose >400. He was found to be hypothermic and hypotensive with suspected sepsis and DKA, likely due to improper insulin usage. He received IVNS Bolus and insulin drip in the ICU. # Diabetic Ketoacidosis - resolved - Increased Levemir to 22u - AM glucose was low because pt received 18 units at night - 2u standing prandial insulin premeal, consider increasnig - Continue SSI # Acute Delirium - Spoke to primary care doctor Dr. Paris who will work him up outpatient - Head CT neg - No need for psych consult - Keep oriented # LAVERNE on CKD - improved - Cr at baseline after fluids - D/c'd fluids - Renally dose all meds # Hx of ESRD s/p renal transplant - Continue Prednisone + Tacrolimus + Na Bicarb + Cellcept # HTN - Continue Metoprolol 25mg BID - Restarted Losartan daily - Nifedipine changed from BID --> QD # Hx of CAD - Continue ASA 81mg + Plavix 75mg # Hx of BPH - Held Flomax due to presenting low BP - Good UOP, will continue at discharge # FEN - Fluids: Held - Electrolytes: BMP Q4 - Nutrition: Diabetic diet # Prophylaxis - DVT: Heparin SQ 5000 BID - GI: Protonix home med - Deconditioning: Pt refused PT # Dispo - Medically cleared for discharge - Spoke to PCP Dr. Paris at [facility] who stated pt's sister Ansley is now ammenable to rehab - manager of international will confirm, possibly d/c soon. - D/c ordered already in
[2016-12-23 08:01] LABS: ANION GAP 9 (8-16); CALCIUM 8.4 mg/dL (8.5-10.1); CO2 23 mmol/L (21-32); CREATININE 1.5 mg/dL (0.7-1.3); GLUCOSE,RANDOM 78 mg/dL (74-106)
--- NOTE | 2016-12-23 09:21 | PN ---
Progress Note (short form) - Note Progress Note: Denies any complaints Chart reviewed FS 400s last night, No HYpos Vital Signs Period Temp Pulse Resp BP Sys/Esposito Pulse Ox Last 24 Hr 97.9 F-98.4 F 62-82 20-22 102-158/45-75 96 PE; Awake, alert Neck: Supple, No JVD HEENT: EOMI Lungs: CTA CVS: S1S2 Abd: Benign Ext: No edema CMP Sodium 147 mmol/L (136-145) H 12/23/16 06:10 Potassium 4.4 mmol/L (3.5-5.1) 12/23/16 06:10 Chloride 115 mmol/L (98-107) H 12/23/16 06:10 Carbon Dioxide 23 mmol/L (21-32) 12/23/16 06:10 Anion Gap 9 (8-16) 12/23/16 06:10 BUN 43 mg/dL (7-18) H 12/23/16 06:10 Creatinine 1.5 mg/dL (0.7-1.3) H 12/23/16 06:10 Creat Clearance w eGFR 37.49 (>60) 12/21/16 07:45 POC Glucometer 83 UNITS (()) 12/23/16 05:56 Random Glucose 78 mg/dL (74-106) D 12/23/16 06:10 Hemoglobin A1c % 8.4 % (4.8-6.0) H D 12/16/16 05:20 Lactic Acid 1.9 mmol/L (0.4-2.0) 12/15/16 14:00 Uric Acid 5.4 mg/dL (2.6-7.2) 12/21/16 07:45 Calcium 8.4 mg/dL (8.5-10.1) L 12/23/16 06:10 Phosphorus 2.5 mg/dL (2.5-4.9) 12/21/16 07:45 Magnesium 2.1 mg/dL (1.8-2.4) 12/18/16 06:10 Total Bilirubin 0.5 mg/dL (0.2-1.0) 12/21/16 07:45 AST 26 U/L (15-37) D 12/21/16 07:45 ALT 33 U/L (12-78) D 12/21/16 07:45 Alkaline Phosphatase 110 U/L (45-117) 12/21/16 07:45 Ammonia 53.37 umol/L (11-32) H 12/15/16 11:33 Creatine Kinase 174 IU/L (39-308) 12/16/16 05:20 Creatine Kinase Index 1.7 % (0.0-5.0) 12/16/16 05:20 CK-MB (CK-2) 3.095 ng/mL (0.5-3.6) 12/16/16 05:20 Troponin I < 0.02 ng/ml (0.00-0.05) D 12/15/16 10:21 Total Protein 5.8 g/dl (6.4-8.2) L 12/21/16 07:45 Albumin 2.8 g/dl (3.4-5.0) L 12/21/16 07:45 Current Medications Generic Name Dose Route Start Last Admin Trade Name Freq PRN Reason Stop Dose Admin Aspirin 81 mg 12/19/16 10:00 12/22/16 10:31 Asa - PO 81 mg DAILY KAT Administration Clopidogrel Bisulfate 75 mg 12/17/16 10:00 12/22/16 10:31 Plavix - PO 75 mg DAILY KAT Administration Docusate Sodium 100 mg 12/16/16 21:17 Colace - PO TID PRN CONSTIPATION Heparin Sodium (Porcine) 5,000 unit 12/16/16 22:00 12/22/16 22:11 Heparin - SQ 5,000 unit BID KAT Administration Insulin Aspart 2 units 12/19/16 16:30 12/23/16 06:26 Novolog Vial SQ Not Given TIDAC [facility] Insulin Aspart 1 vial 12/22/16 17:41 12/23/16 06:26 Novolog Vial Sliding Scale - SQ Not Given TIDAC [facility] Protocol Insulin Aspart 1 vial 12/23/16 07:21 Novolog Vial Sliding Scale - SQ HS [facility] Protocol Insulin Detemir 22 units 12/22/16 22:00 12/22/16 22:30 Levemir Vial SQ 22 units HS [facility] Administration Losartan Potassium 25 mg 12/22/16 10:15 12/22/16 10:31 Cozaar - PO 25 mg DAILY KAT Administration Metoprolol Tartrate 25 mg 12/18/16 22:00 12/22/16 22:11 Lopressor - PO 25 mg BID KAT Administration Mycophenolate Mofetil 500 mg 12/18/16 22:00 12/22/16 22:12 Cellcept - PO 500 mg BID KAT Administration Pantoprazole Sodium 20 mg 12/17/16 10:00 12/22/16 10:31 Protonix - PO 20 mg DAILY KAT Administration Prednisone 5 mg 12/17/16 10:00 12/22/16 10:31 Deltasone - PO 5 mg DAILY KAT Administration Senna 1 tab 12/16/16 21:17 Senna - PO DAILY PRN CONSTIPATION Sodium Bicarbonate 1,300 mg 12/16/16 22:00 12/22/16 22:10 Sodium Bicarbonate - PO 1,300 mg BID KAT Administration Tacrolimus 3 mg 12/16/16 22:00 12/22/16 22:12 Prograf (Non-Formulary) PO 3 mg BID KAT Administration AP: DKA: resolved T2DM: uncontrolled; Unclear reason for high blood sugar in the evening LAVERNE S/P renal transplant HTN Change Levemir to 14 units BID, Increase Novolog SS coverage. Will D/C Standing dose of Novolog premeals and incorporate it in the sliding scale. Will f/u
[2016-12-23] MEDS ORDERED: PT OWN MED DRAWER 7, Y5N ONE (09:43)
[2016-12-23] MEDS ORDERED: NIFEdipine E.R. 30 MG TABLET (FP) PO SCH (10:00)
[2016-12-23] MEDS ORDERED: INSULIN (NOVOLOG) ASPART 100 UNITS/ML 10ML VIAL ONE (11:23)
[2016-12-23] MEDS ORDERED: INSULIN DETEMIR 100 UNITS/ML MDV SQ ONE (11:23)
[2016-12-23] MEDS: ASPIRIN 81 MG CHEWABLE TABLETS PO SCH (11:32)
[2016-12-23] MEDS: MYCOPHENOLATE MOFETIL 250 MG CAPSULE PO SCH (11:33)
[2016-12-23] MEDS: LOSARTAN POTASSIUM 25 MG TABLET PO SCH (11:33)
[2016-12-23] MEDS: HEPARIN NA (PORCINE) 5,000 UNITS/ML 1ML VIAL SQ SCH (11:33)
[2016-12-23] MEDS: predniSONE 5 MG TABLET (UD) PO SCH (11:33)
[2016-12-23] MEDS: CLOPIDOGREL BISULFATE 75 MG TABLET (FP) PO SCH (11:34)
[2016-12-23] MEDS: SODIUM BICARBONATE 650 MG TABLET PO SCH (11:34)
[2016-12-23] MEDS: TACROLIMUS ANHYDROUS 1 MG CAPSULE (NF) PO SCH (11:34)
[2016-12-23] MEDS: METOPROLOL TARTRATE 25 MG TABLET (FP) PO SCH (11:34)
[2016-12-23] MEDS: PANTOPRAZOLE 20 MG TABLET (FP) PO SCH (11:34)
--- NOTE | 2016-12-23 14:34 | PN ---
Progress Note (short form) - Note Progress Note: Renal Follow up for Renal Transplant with LAVERNE Pt seen and examined at the bedside no complaints pending placement Vital Signs Temperature 98.3 F 12/23/16 10:00 Pulse Rate 73 12/23/16 10:00 Respiratory Rate 22 12/23/16 10:00 Blood Pressure 119/65 12/23/16 10:00 O2 Sat by Pulse Oximetry (%) 98 12/23/16 09:00 Intake & Output 12/20/16 12/21/16 12/22/16 12/23/16 23:59 23:59 23:59 23:59 Intake Total 750 180 880 245 Balance 750 180 880 245 Gen: NAD, awake and alert CVS: RRR, No M/R Lungs: CTA, no rales or wheeze Abd: Soft NT/ND Ext: Trace to 1+ edema CBC, BMP 12/22/16 08:05 12/23/16 11:43 Current Medications Aspirin (Asa -) 81 mg PO DAILY [facility] Last Admin: 12/23/16 11:32 Dose: 81 mg Clopidogrel Bisulfate (Plavix -) 75 mg PO DAILY [facility] Last Admin: 12/23/16 11:34 Dose: 75 mg Docusate Sodium (Colace -) 100 mg PO TID PRN PRN Reason: CONSTIPATION Heparin Sodium (Porcine) (Heparin -) 5,000 unit SQ BID [facility] Last Admin: 12/23/16 11:33 Dose: 5,000 unit Insulin Aspart (Novolog Vial Sliding Scale -) 1 vial SQ HS [facility] PRN Reason: Protocol Insulin Aspart (Novolog Vial Sliding Scale -) 1 vial SQ TIDAC [facility] PRN Reason: Protocol Last Admin: 12/23/16 11:35 Dose: 10 units Insulin Detemir (Levemir Vial) 14 units SQ BIDAC [facility] Losartan Potassium (Cozaar -) 25 mg PO DAILY [facility] Last Admin: 12/23/16 11:33 Dose: 25 mg Metoprolol Tartrate (Lopressor -) 25 mg PO BID [facility] Last Admin: 12/23/16 11:34 Dose: 25 mg Mycophenolate Mofetil (Cellcept -) 500 mg PO BID [facility] Last Admin: 12/23/16 11:33 Dose: 500 mg Pantoprazole Sodium (Protonix -) 20 mg PO DAILY [facility] Last Admin: 12/23/16 11:34 Dose: 20 mg Prednisone (Deltasone -) 5 mg PO DAILY [facility] Last Admin: 12/23/16 11:33 Dose: 5 mg Senna (Senna -) 1 tab PO DAILY PRN PRN Reason: CONSTIPATION Sodium Bicarbonate (Sodium Bicarbonate -) 1,300 mg PO BID [facility] Last Admin: 12/23/16 11:34 Dose: 1,300 mg Tacrolimus (Prograf (Non-Formulary)) 3 mg PO BID [facility] Last Admin: 12/23/16 11:34 Dose: 3 mg A/P 71 year old Gentleman with PMhx of ESRD s/p 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 #ESRD s/p Renal Transplant (baseline Cr 1.7-1.9) with acute kidney Injury Renal function stable maintain on current immunosuppresive meds Trend BUN/Cr placement pending Pedro Villalobos DO Problem List - Problems (1) DKA (diabetic ketoacidoses) Code(s): E13.10 - OTH DIABETES MELLITUS WITH KETOACIDOSIS WITHOUT COMA Qualifiers: Diabetes mellitus type: other specified (including LAURA) Diabetes mellitus complication detail: without coma Qualified Code(s): E13.10 - Other specified diabetes mellitus with ketoacidosis without coma (2) Diabetes mellitus, insulin dependent (IDDM), uncontrolled Code(s): E10.65 - TYPE 1 DIABETES MELLITUS WITH HYPERGLYCEMIA (3) Renal transplant disorder Code(s): T86.10 - UNSPECIFIED COMPLICATION OF KIDNEY TRANSPLANT (4) CKD (chronic kidney disease) Code(s): N18.9 - CHRONIC KIDNEY DISEASE, UNSPECIFIED (5) ESRD (end stage renal disease) Code(s): N18.6 - END STAGE RENAL DISEASE (6) Hypertension Code(s): I10 - ESSENTIAL (PRIMARY) HYPERTENSION (7) Leukocytosis Code(s): D72.829 - ELEVATED WHITE BLOOD CELL COUNT, UNSPECIFIED (8) Hypothermia Code(s): T68.XXXA - HYPOTHERMIA, INITIAL ENCOUNTER
[2016-12-23 15:27] VITALS: BP 112/61; PULSE 62; TEMP 98.4
--- NOTE | 2016-12-23 16:19 | PN ---
Teaching Attending Note Name of Resident: Ana Robertson ATTENDING PHYSICIAN STATEMENT I saw and evaluated the patient. I reviewed the resident's note and discussed the case with the resident. I agree with the resident's findings and plan as documented. SUBJECTIVE: Patient is going to [facility]. OBJECTIVE: Vital Signs Temperature 98.4 F 12/23/16 14:24 Pulse Rate 62 12/23/16 14:24 Respiratory Rate 17 12/23/16 14:24 Blood Pressure 112/61 12/23/16 14:24 O2 Sat by Pulse Oximetry (%) 98 12/23/16 09:00 CBCD WBC 7.5 K/mm3 (4.0-10.0) 12/22/16 08:05 RBC 4.08 M/mm3 (4.00-5.60) 12/22/16 08:05 Hgb 12.3 GM/dL (11.7-16.9) 12/22/16 08:05 Hct 37.3 % (35.4-49) 12/22/16 08:05 MCV 91.5 fl (80-96) 12/22/16 08:05 MCHC 32.8 g/dl (32.0-35.9) 12/22/16 08:05 RDW 13.6 % (11.9-15.9) 12/22/16 08:05 Plt Count 138 K/MM3 (134-434) 12/22/16 08:05 MPV 7.7 fl (7.5-11.1) 12/22/16 08:05 CMP Sodium 147 mmol/L (136-145) H 12/23/16 06:10 Potassium 4.4 mmol/L (3.5-5.1) 12/23/16 06:10 Chloride 115 mmol/L (98-107) H 12/23/16 06:10 Carbon Dioxide 23 mmol/L (21-32) 12/23/16 06:10 Anion Gap 9 (8-16) 12/23/16 06:10 BUN 43 mg/dL (7-18) H 12/23/16 06:10 Creatinine 1.5 mg/dL (0.7-1.3) H 12/23/16 06:10 Creat Clearance w eGFR 37.49 (>60) 12/21/16 07:45 Random Glucose 486 mg/dL (74-106) H* D 12/23/16 11:43 Calcium 8.4 mg/dL (8.5-10.1) L 12/23/16 06:10 Total Bilirubin 0.5 mg/dL (0.2-1.0) 12/21/16 07:45 AST 26 U/L (15-37) D 12/21/16 07:45 ALT 33 U/L (12-78) D 12/21/16 07:45 Alkaline Phosphatase 110 U/L (45-117) 12/21/16 07:45 Total Protein 5.8 g/dl (6.4-8.2) L 12/21/16 07:45 Albumin 2.8 g/dl (3.4-5.0) L 12/21/16 07:45 CARDIAC ENZYMES Creatine Kinase 174 IU/L (39-308) 12/16/16 05:20 Troponin I < 0.02 ng/ml (0.00-0.05) D 12/15/16 10:21 Current Medications Generic Name Dose Route Start Last Admin Trade Name Leonardoq PRN Reason Stop Dose Admin Aspirin 81 mg 12/19/16 10:00 12/23/16 11:32 Asa - PO 81 mg DAILY KAT Administration Clopidogrel Bisulfate 75 mg 12/17/16 10:00 12/23/16 11:34 Plavix - PO 75 mg DAILY KAT Administration Docusate Sodium 100 mg 12/16/16 21:17 Colace - PO TID PRN CONSTIPATION Heparin Sodium (Porcine) 5,000 unit 12/16/16 22:00 12/23/16 11:33 Heparin - SQ 5,000 unit BID KAT Administration Insulin Aspart 1 vial 12/23/16 07:21 Novolog Vial Sliding Scale - SQ HS [facility] Protocol Insulin Aspart 1 vial 12/23/16 09:29 12/23/16 11:35 Novolog Vial Sliding Scale - SQ 10 units TIDAC [facility] Administration Protocol Insulin Detemir 14 units 12/23/16 22:00 Levemir Vial SQ BIDAC [facility] Losartan Potassium 25 mg 12/22/16 10:15 12/23/16 11:33 Cozaar - PO 25 mg DAILY KAT Administration Metoprolol Tartrate 25 mg 12/18/16 22:00 12/23/16 11:34 Lopressor - PO 25 mg BID KAT Administration Mycophenolate Mofetil 500 mg 12/18/16 22:00 12/23/16 11:33 Cellcept - PO 500 mg BID KAT Administration Pantoprazole Sodium 20 mg 12/17/16 10:00 12/23/16 11:34 Protonix - PO 20 mg DAILY KAT Administration Prednisone 5 mg 12/17/16 10:00 12/23/16 11:33 Deltasone - PO 5 mg DAILY KAT Administration Senna 1 tab 12/16/16 21:17 Senna - PO DAILY PRN CONSTIPATION Sodium Bicarbonate 1,300 mg 12/16/16 22:00 12/23/16 11:34 Sodium Bicarbonate - PO 1,300 mg BID KAT Administration Tacrolimus 3 mg 12/16/16 22:00 12/23/16 11:34 Prograf (Non-Formulary) PO 3 mg BID KAT Administration Home Medications Medication Instructions Recorded Aspirin [Aspirin EC] 81 mg PO DAILY #1 tab 12/20/16 Clopidogrel Bisulfate [Plavix -] 75 mg PO DAILY #1 tab 12/20/16 Docusate Sodium [Colace -] 100 mg PO TID PRN #1 tab 12/20/16 Furosemide [Lasix -] 40 mg PO DAILY #1 tab 12/20/16 Insulin Aspart [Novolog Flexpen] 2 unit SQ AC #0 units 12/20/16 Insulin Aspart [Novolog] See Protocol SQ AC #0 units 12/20/16 Losartan Potassium 25 mg PO DAILY #1 tab 12/20/16 Metoprolol Tartrate 25 mg PO BID #1 tab 12/20/16 Mycophenolate Mofetil [Cellcept] 500 mg PO BID #1 units 12/20/16 Pantoprazole Sodium [Protonix -] 20 mg PO DAILY #1 units 12/20/16 Prednisone 5 mg PO DAILY #1 tab 12/20/16 Sennosides [Senna] 8.6 mg PO DAILY PRN #0 tbs 12/20/16 Sodium Bicarbonate - 1,300 mg PO BID #0 tab 12/20/16 Tacrolimus [Prograf] 3 mg PO BID #0 cap 12/20/16 Tamsulosin HCl [Flomax] 0.4 mg PO DAILY #0 cap 12/20/16 Insulin (Levemir) [Levemir Flexpen 22 units SQ HS #0 units 12/22/16 -] Nifedipine ER [Procardia XL -] 30 mg PO DAILY #30 tab.er.24 12/22/16 ASSESSMENT AND PLAN: 71 Y/O gentleman with h/o ESRD s/p renal transplant , CAD , BPH ,and IDDM who presented with fatigue and increased thirst, and was found to have LAVERNE and DKA # DKA :resolved , on AChs with coverage, on Levemir 14Unit bid , discussed with , discharged to [facility] # s/p LAVERNE: Cr back to base line ( 1.7) now is 1.5 , Patient has a transplant kidney cont prednisone and tacrolimus and cellcept . Seen by auto damage estimator # Acute delirium. improved # HTN: continue to be elevated. nifedipine xl 30mg daily, cont BB ; resume ARb # H/o CAD: cont plavix , cont BB discharge to rehab. follow up with W[facility] with his transplant doctor.
--- NOTE | 2016-12-23 16:27 | DS ---
Physical Exam: SUBJECTIVE: Patient seen and examined this AM. AAO x2 today, still confused during the conversation. Pt was slightly confused last night, can be re- oriented. No fever, no chills, no CP, no SOB OBJECTIVE: Vital Signs Period Temp Pulse Resp BP Sys/Esposito Pulse Ox Last 24 Hr 97.9 F-98.4 F 62-82 17-22 102-158/45-75 96-98 PHYSICAL EXAM GENERAL: AAOx2, NAD, confused during the conversations HEENT: PERRLA, EOMi, no cervical LAD LUNG: CTABL, no labored respirations CV: S1, S2, RRR ABD: Soft, NT, ND, normoactive BS MSK: No edema, no erythema NEURO: CN 2-12 intact, sensation equal and intact in face/body, MSK 5/5 in all extremities, reflexes 1+ LABS Laboratory Results - last 24 hr 12/22/16 12/22/16 12/23/16 17:42 23:42 00:30 Sodium 141 Potassium 4.9 Chloride 110 H Carbon Dioxide 21 Anion Gap 10 BUN 48 H D Creatinine 1.8 H POC Glucometer 289 466 Random Glucose 489 H* D Calcium 8.3 L 12/23/16 12/23/16 12/23/16 01:15 03:36 05:56 Sodium Potassium Chloride Carbon Dioxide Anion Gap BUN Creatinine POC Glucometer 400 172 83 Random Glucose Calcium 12/23/16 12/23/16 12/23/16 06:10 11:43 15:11 Sodium 147 H Potassium 4.4 Chloride 115 H Carbon Dioxide 23 Anion Gap 9 BUN 43 H Creatinine 1.5 H POC Glucometer 410 Random Glucose 78 D 486 H* D Calcium 8.4 L HOSPITAL COURSE: Date of Admission:12/15/16 Date of Discharge: 12/23/16 Mr. Ferreira a 71yo M with a PMHx of IDDM2, ESRD (s/p transplant) who presented to the ER by EMS after an episode of weakness and lethargy and found to have a glucose >400. He was found to be hypothermic and hypotensive with suspected sepsis and DKA, likely due to improper insulin usage. He received IVNS Bolus and insulin drip in the ICU. # Diabetic Ketoacidosis - resolved - The patient was sent to the ICU and treated with IV insulin and fluids using the DKA protocol. His anion gap closed, and after the patient was able to eat he was transitioned to SQ insulin. During the hospitalization, we had to change his insulin regimen to get better control of his blood sugars. The patient will be discharged on Levemir 14 units BID with sliding scale insulin. He will follow with his primary care doctor at the [facility] (Dr. Paris) and his Regional Sales Consultant at the [facility]. # Acute Delirium - The patient did not have any electrolyte abnormalities or pathology on CT head. She was sometimes to be able to be reoriented with pictures. The patient' s primary care doctor Dr. Paris was notified about the gradual change in mental status., who will work him up as an outpatient. # LAVERNE on CKD - improved - The patient presented with an elevated creatinine, which resolved after fluids. On discharge his Cr was 1.5 # Other - Hx of ESRD s/p renal transplant - Continued Prednisone + Tacrolimus + Cellcept + Sodium bicarb - HTN - THe patient will be discharged on Metoprolol 25mg BID + Losartan daily + Nifedipine QD - Hx of CAD - Continue ASA 81mg + Plavix 75mg QD - Hx of BPH - The patient will be discharged on his home Flomax - Continue ASA 81mg + Plavix 75mg The patient was made aware of the hospital course and agrees with the plan to be transferred to [facility]. Minutes to complete discharge: 55 Discharge Summary Reason For Visit: DKA, HYPOTHERMIA Current Active Problems LAVERNE (acute kidney injury) (Acute) Acute delirium (Acute) DKA (diabetic ketoacidoses) (Acute) Leukocytosis (Acute) CKD (chronic kidney disease) (Chronic) Hypertension (Chronic) Renal transplant disorder (Chronic) Condition: Improved - Instructions Diet, Activity, Other Instructions: - Your insulin regimen has changed due to the severe acidosis from diabetes (DKA ) - Check your sugar, before each meal and at bed time. - If you skip a meal, do not inject the meal insulin - If you develop shakes, sweats , or nervousness, check your sugar. If low < 70 , hold insulin, take orange juice and call your doctor - Please follow a diabetic diet NEW MEDICATIONS - Take Levemir 14 units two times a day - We changed your Nifedipine from 30mg two times a day to Nifedipine 30mg daily - Continue the rest of your medications - Use insulin sliding scale as follows : Blood Sugar Inject 100-150 4 units 150-200 8 201-250 10 250-300 12 301-350 14 351-400 16 > 400 call MD FOLLOWUP: - Follow with your kidney doctors at [facility] transplant center in 1-2 weeks - You need repeat blood work BMP in 1 week by your kidney doctors Referrals: Mehdi Paris [Non Staff, Medical] - 1 Week Bryce Bellamy MD [Staff Physician] - 1 Week Disposition: [facility] - Home Medications Comprehensive Discharge Medication List: Ambulatory Orders Aspirin [Aspirin EC] 81 mg PO DAILY #1 tab 12/20/16 Clopidogrel Bisulfate [Plavix -] 75 mg PO DAILY #1 tab 12/20/16 Docusate Sodium [Colace -] 100 mg PO TID PRN #1 tab 12/20/16 Furosemide [Lasix -] 40 mg PO DAILY #1 tab 12/20/16 Insulin Aspart [Novolog Flexpen] 2 unit SQ AC #0 units 12/20/16 Insulin Aspart [Novolog] See Protocol SQ AC #0 units 12/20/16 Losartan Potassium 25 mg PO DAILY #1 tab 12/20/16 Metoprolol Tartrate 25 mg PO BID #1 tab 12/20/16 Mycophenolate Mofetil [Cellcept] 500 mg PO BID #1 units 12/20/16 Pantoprazole Sodium [Protonix -] 20 mg PO DAILY #1 units 12/20/16 Prednisone 5 mg PO DAILY #1 tab 12/20/16 Sennosides [Senna] 8.6 mg PO DAILY PRN #0 tbs 12/20/16 Sodium Bicarbonate - 1,300 mg PO BID #0 tab 12/20/16 Tacrolimus [Prograf] 3 mg PO BID #0 cap 12/20/16 Tamsulosin HCl [Flomax] 0.4 mg PO DAILY #0 cap 12/20/16 Insulin (Levemir) [Levemir Flexpen -] 22 units SQ HS #0 units 12/22/16 Nifedipine ER [Procardia XL -] 30 mg PO DAILY #30 tab.er.24 12/22/16 This patient is new to me today: No Emergency Visit: No Critical Care patient: No - Discharge Referral Referred to [facility] No
[2016-12-23] MEDS ORDERED: INSULIN DETEMIR 100 UNITS/ML MDV SQ SCH ×2 (22:00)
== END 2016-12-23 16:29 | DRG 638 ==
LOC: JER 09:14 → JERBED 13:09 → JICU 14:03 → J5S 12-16 19:59
PROVIDERS: ADMIT Internal Medicine; ATTEND Internal Medicine
DX: E13.10 Other specified diabetes mellitus with ketoacidosis without coma (principal); N17.9 Acute kidney failure, unspecified; Z94.0 Kidney transplant status; E87.2 Acidosis; Z79.4 Long term (current) use of insulin; R41.0 Disorientation, unspecified; N40.0 Benign prostatic hyperplasia without lower urinary tract symptoms; D72.829 Elevated white blood cell count, unspecified; I25.10 Atherosclerotic heart disease of native coronary artery without angina pectoris; E86.0 Dehydration
CPT/HCPCS: 36415; 70450-TC; 71010-TC; 76775-TC; 80048; 80053; 81003; 81015; 82009; 82140; 82436; 82553; 82570; 82803; 82947; 83036; 83605; 83735; 84100; 84133; 84300; 84484; 84550; 85025; 85027; 85610; 85730; 86850; 86900; 86901; 87040; 87086; 93005; 93010; 97116-GP; 97162-GP; 97164-GP; 99285-25; J1644; J7517

== ENCOUNTER 2019-03-21 03:55 | Emergency (ER) | payer OTHER, BC ==
--- NOTE | 2019-03-21 04:54 | PDOC ---
Attending Attestation - Resident Resident Name: NehemiahDariel - ED Attending Attestation I have performed the following: I have examined & evaluated the patient, The case was reviewed & discussed with the resident, I agree w/resident's findings & plan - HPI HPI: 03/21/19 06:12 see resident hpi - Physicial Exam PE: 03/21/19 06:12 agree with resident exam - Medical Decision Making 03/21/19 06:12 73-year-old male with atraumatic low back and lower extremity pain Due to patient's age a CT scan of the lumbar spine will be performed Exam and history most likely consistent with sciatica due to onset after physical exertion Case will be signed out to dayshift pending radiology results
[2019-03-21] MEDS ORDERED: ACETAMINOPHEN 1000 MG/100 ML VIAL (NON FORMULARY) IVPB ONE (06:00)
[2019-03-21] MEDS ORDERED: ACETAMINOPHEN 500 MG TABLET (FP) PO ONE (06:03)
--- NOTE | 2019-03-21 06:25 | PDOC ---
History of Present Illness - General Chief Complaint: Pain, Acute Stated Complaint: PAIN LEFT LEFT LEG AND BACK Time Seen by Provider: 03/21/19 04:52 History Source: Patient Exam Limitations: No Limitations Past History - Past Medical History Allergies/Adverse Reactions: Allergies Allergy/AdvReac Type Severity Reaction Status Date / Time No Known Allergies Allergy Verified 03/21/19 04:58 Home Medications: Ambulatory Orders Aspirin [Aspirin EC] 81 mg PO DAILY #1 tab 12/20/16 Clopidogrel Bisulfate [Plavix -] 75 mg PO DAILY #1 tab 12/20/16 Docusate Sodium [Colace -] 100 mg PO TID PRN #1 tab 12/20/16 Furosemide [Lasix -] 40 mg PO DAILY #1 tab 12/20/16 Insulin Aspart [Novolog Flexpen] 2 unit SQ AC #0 units 12/20/16 Insulin Aspart [Novolog] See Protocol SQ AC #0 units 12/20/16 Losartan Potassium 25 mg PO DAILY #1 tab 12/20/16 Metoprolol Tartrate 25 mg PO BID #1 tab 12/20/16 Mycophenolate Mofetil [Cellcept] 500 mg PO BID #1 units 12/20/16 Pantoprazole Sodium [Protonix -] 20 mg PO DAILY #1 units 12/20/16 Prednisone 5 mg PO DAILY #1 tab 12/20/16 Sennosides [Senna] 8.6 mg PO DAILY PRN #0 tbs 12/20/16 Sodium Bicarbonate - 1,300 mg PO BID #0 tab 12/20/16 Tacrolimus [Prograf] 3 mg PO BID #0 cap 12/20/16 Tamsulosin HCl [Flomax] 0.4 mg PO DAILY #0 cap 12/20/16 Insulin (Levemir) [Levemir Flexpen -] 22 units SQ HS #0 units 12/22/16 Nifedipine ER [Procardia XL -] 30 mg PO DAILY #30 tab.er.24 12/22/16 Anemia: No Asthma: No Cancer: No Cardiac Disorders: Yes (CAD WITH STENT PLACEMENT( 6 STENTS)) CVA: No COPD: No CHF: No Dementia: No Diabetes: Yes GI Disorders: No Disorders: No HTN: Yes Hypercholesterolemia: Yes Liver Disease: No Seizures: No Thyroid Disease: No - Surgical History Abdominal Surgery: No Appendectomy: No Cardiac Surgery: Yes Cholecystectomy: No Lung Surgery: No Neurologic Surgery: No Orthopedic Surgery: No - Psycho Social/Smoking Cessation Hx Smoking Status: No Smoking History: Never smoked Have you smoked in the past 12 months: No Number of Cigarettes Smoked Daily: 0 Information on smoking cessation initiated: No Hx Alcohol Use: No Drug/Substance Use Hx: No Substance Use Type: None Hx Substance Use Treatment: No Review of Systems - Review of Systems Able to Perform ROS?: Yes Is the patient limited [place] proficient: No *Physical Exam - Vital Signs Last Vital Signs Temp Pulse Resp BP Pulse Ox 97.1 F L 95 H 18 174/82 H 98 03/21/19 03:55 03/21/19 03:55 03/21/19 03:55 03/21/19 03:55 03/21/19 03:55 ED Treatment Course - LABORATORY CBC & Chemistry Diagram: 03/21/19 06:22 03/21/19 06:22 Medical Decision Making - Medical Decision Making 03/21/19 06:17 HPI: 73M PMH DM, HTN, ID s/p 6 stents, CKD s/p Renal Transplant on immunosuppresion presenting w/ 3 days of LLE pain that started after physical activity. Atraumatic. Pain is worsening and affecting patient's ability to ambulate. No swelling, rashes, redness, f/c. No acute numbness/tingling. No bowel/bladder incontinence or saddle anesthesia. ROS: CONSTITUTIONAL: Denies F / C RESP: Denies SOB CARD: Denies chest pain, palpitations GI: Denies N / V / D, abdominal pain, bloody stool, inability to tolerate PO : Denies dysuria, frequency SKIN: Denies rashes NEURO: Endorses chronic peripheral neuropathy affecting feet. Denies new numbness, tingling, weakness PE: GEN: NAD, comfortable. AAOx3 HEENT: NC/AT. No facial asymmetry. Normal voice. Supple neck w/ FROM. CV: S1/S2, RRR, no m/r/g LUNG: CTAB, no wheezes, crackles, rales, rhonchi. GI: soft, ndnt, +BS, no guarding, no rebound. No masses. EXTREMITIES: 2+ distal pulses. No LE edema. No obvious deformities of all extremities. +TTP (mild) of the entire LLE. BACK: no step offs, no obvious deformities, no midline TTP. +left paraspinal TTP of the left hip. SKIN: warm, dry, normal turgor. No rashes. PSYCH: normal mood and affect NEURO: 5/5 strength LE b/l. Symmetric sensation. +DTRs b/l. +DP b/l MDM: 73M w/ LLE and left paraspinal pain for 3 days. Atraumatic. Neurologically intact exam. Likely MSK r/o compression fracture - CBC, CMP - CT L-S - tylenol, flexeril - dispo pending 03/21/19 06:37 EKG HR 74 [place] 208 QTS 96 QTc 421 NSR, LAD 03/21/19 07:08 hyper K 6.2 glc 426 - calcium - insulin - kayexlate - d50 - NS - rpt K - likely tele-obs signed out to day team Discharge - Discharge Information Condition: Fair - Follow up/Referral - Patient Discharge Instructions - Post Discharge Activity
[2019-03-21 06:33] LABS: BASO % 0.8 % (0-2.0); EOS % 0.1 % (0-4.5); LYMPH % 18.9 % (8-40); MCH 28.4 pg (25.7-33.7); MCHC 31.8 g/dl (32.0-35.9); MEAN CELL VOLUME 89.2 fl (80-96); MEAN PLT VOLUME 7.2 fl (7.5-11.1); MONO % 5.8 % (3.8-10.2); NEUT % 74.4 % (42.8-82.8); PLATELET COUNT 203 K/MM3 (134-434); RBC 4.59 M/mm3 (4.00-5.60); RDW 14.7 % (11.9-15.9)
[2019-03-21] MEDS ORDERED: ACETAMINOPHEN INJECTION 100 ML IVPB ONE (06:34)
[2019-03-21] MEDS ORDERED: ACETAMINOPHEN 325 MG TABLET (FP) ONE (06:34)
[2019-03-21] MEDS ORDERED: DEXAMETHASONE SOD PHOSPHATE 10 MG/1 ML VIAL IVPUSH ONE (07:00)
[2019-03-21 07:03] LABS: ALBUMIN 3.7 g/dl (3.4-5.0); BILIRUBIN,TOTAL 0.4 mg/dL (0.2-1); BLOOD UREA NITROGEN 45.1 mg/dL (7-18); CALCIUM 9.2 mg/dL (8.5-10.1); CREATININE 1.6 mg/dL (0.55-1.3); POTASSIUM 6.2 mmol/L (3.5-5.1)
[2019-03-21] MEDS ORDERED: SODIUM CHLORIDE 0.9% 500 ML INFUS.BAG IV ONE (07:06)
[2019-03-21] MEDS ORDERED: INSULIN REGULAR HUMAN 100 UNITS/ML *VIAL IVPUSH ONE (07:06)
[2019-03-21] MEDS ORDERED: CALCIUM CHLORIDE 10% 1 GM/10 ML *VIAL IVPUSH ONE (07:07)
[2019-03-21] MEDS ORDERED: DEXTROSE 50%-WATER - 25 GM/50 ML VIAL IVPUSH ONE (07:09)
[2019-03-21] MEDS ORDERED: SODIUM POLYSTYRENE SULFONATE 15 GM/60 ML BOTTLE PO ONE (07:10)
--- NOTE | 2019-03-21 07:29 | PDOC ---
*Physical Exam - Vital Signs Last Vital Signs Temp Pulse Resp BP Pulse Ox 97.1 F L 95 H 18 174/82 H 98 03/21/19 03:55 03/21/19 03:55 03/21/19 03:55 03/21/19 03:55 03/21/19 03:55 ED Treatment Course - LABORATORY CBC & Chemistry Diagram: 03/21/19 06:22 03/21/19 10:02 - ADDITIONAL ORDERS Additional order review: Laboratory Results 03/21/19 06:22 Sodium 136 Potassium 6.2 H* Chloride 108 H Carbon Dioxide 20 L Anion Gap 8 BUN 45.1 H Creatinine 1.6 H Est GFR (CKD-EPI)AfAm 49.15 Est GFR (CKD-EPI)NonAf 42.41 Random Glucose 426 H* Calcium 9.2 Total Bilirubin 0.4 AST 15 ALT 24 Alkaline Phosphatase 117 Total Protein 7.0 Albumin 3.7 03/21/19 06:22 RBC 4.59 MCV 89.2 MCHC 31.8 L RDW 14.7 MPV 7.2 L Neutrophils % 74.4 Lymphocytes % 18.9 Monocytes % 5.8 Eosinophils % 0.1 D Basophils % 0.8 - Medications Given in the ED: ED Medications Discontinued Medications Generic Name Dose Route Start Last Admin Trade Name Freq PRN Reason Stop Dose Admin Acetaminophen 1,000 mg 03/21/19 06:03 03/21/19 07:02 Tylenol - PO 03/21/19 06:04 Not Given ONCE ONE Acetaminophen 1,000 mg 03/21/19 06:00 03/21/19 07:02 Ofirmev Injection - IVPB 03/21/19 06:01 1,000 mg ONCE ONE Administration Medical Decision Making - Medical Decision Making 03/21/19 07:29 Received Sign out from Dr Cerna HPI: 73M PMH DM, HTN, [place] s/p 6 stents, CKD s/p Renal Transplant on immunosuppresion presenting w/ 3 days of LLE pain that started after physical activity. Atraumatic. Pain is worsening and affecting patient's ability to ambulate. No swelling, rashes, redness, f/c. No acute numbness/tingling. No bowel/bladder incontinence or saddle anesthesia. 03/21/19 06:37 EKG HR 74 [place] 208 QTS 96 QTc 421 NSR, LAD 03/21/19 07:08 hyper K 6.2 [facility] 426 - calcium - insulin - kayexlate - d50 - NS - likely tele-obs Pending L CT. will repeat Potassium 03/21/19 07:35 Will order UA 03/21/19 07:37 Will order Furosemide 40 once in light of hyperkalemia. 03/21/19 11:08 Repeat Potassium 4.9. Nephrology contacted-Dr Villalobos. 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 Prior medication list shows Losartan on med list. Med list provided by patient no longer reveals Losartan- a possible culprit for hyperkalemia. D/C pending CT result. 03/21/19 12:15 Ct report given to patient. Discharge - Discharge Information Condition: Fair - Follow up/Referral - Patient Discharge Instructions Patient Printed Discharge Instructions: DI for Degenerative Disc Disease Additional Instructions: you were treated in our Emergency Department for lower back pain. Your potassium level was also high. Please follow up with your primary Care doctor this week. Please follow up with your [employer] this week. You may take over the counter Tylenol for your pain. Please come to the emergency Department immediately if your lower back pain worsens, you lose sensation in your legs, have changes in urination or bowel function, become short of breath, develop chest pain, or have any other abnormal symptom. - Post Discharge Activity
[2019-03-21] MEDS ORDERED: CALCIUM GLUCONATE 10% - 1,000 MG/10 ML VIAL IVPUSH ONE (07:34)
[2019-03-21] MEDS ORDERED: FUROSEMIDE 40 MG/4 ML INJECTABLE VIAL IVPUSH ONE (07:37)
[2019-03-21] MEDS ORDERED: DEXAMETHASONE SOD PHOSPHATE 10 MG/1 ML VIAL ONE (07:41)
[2019-03-21] MEDS ORDERED: SODIUM POLYSTYRENE SULFONATE 15 GM/60 ML BOTTLE ONE (07:42)
[2019-03-21] MEDS ORDERED: DEXTROSE 50%-WATER 25 GM/50 ML DISP.SYRIN ONE (07:42)
[2019-03-21] MEDS ORDERED: INSULIN REGULAR HUMAN 100 UNITS/ML *VIAL ONE (07:42)
[2019-03-21] MEDS ORDERED: CALCIUM GLUCONATE 10% - 1,000 MG/10 ML VIAL ONE (07:42)
[2019-03-21 08:09] VITALS: BP 163/74; PULSE 79; TEMP 97.1; BMI 26.7
[2019-03-21 08:43] LABS: EPI CELLS 0.7 /HPF (0-5/HPF); HYALINE CASTS 1 /lpf (0-8); URINE APPEARANCE CLEAR; URINE BACTERIA 0.5 /hpf (NEGATIVE); URINE BILIRUBIN NEGATIVE (NEGATIVE); URINE COLOR YELLOW; URINE GLUCOSE (UA) 3+ (NEGATIVE); URINE KETONE TRACE (NEGATIVE); URINE LEUK ESTERASE NEGATIVE (NEGATIVE); URINE NITRITE NEGATIVE (NEGATIVE); URINE PROTEIN 2+ (NEGATIVE); URINE RBC 1 /hpf (0-4); URINE UROBILINOGEN 0.2 mg/dL (0.2-1.0); URINE WBC 1 /hpf (0-5)
[2019-03-21] MEDS ORDERED: CYCLOBENZAPRINE HCL 10 MG TABLET (FP) ONE (08:45)
[2019-03-21] MEDS: INSULIN SLIDING SCALE (NOVOLOG) 1 VIAL SQ SCH ×2 (08:55→11:13)
[2019-03-21] MEDS ORDERED: FUROSEMIDE 40 MG/4 ML INJECTABLE VIAL ONE (09:38)
--- NOTE | 2019-03-21 09:45 | EKG ---
Test Reason : Blood Pressure : / mmHG Vent. Rate : 074 BPM Atrial Rate : 074 BPM P-R Int : 208 ms QRS Dur : 096 ms QT Int : 380 ms P-R-T Axes : 023 -40 040 degrees QTc Int : 421 ms NORMAL SINUS RHYTHM LEFT AXIS DEVIATION VOLTAGE CRITERIA FOR LEFT VENTRICULAR HYPERTROPHY ABNORMAL ECG WHEN COMPARED WITH ECG OF 15-DEC-2016 13:27, QT HAS SHORTENED Confirmed by MD AGUSTINA, PAULIE ([id number]) on 03/21/2019 9:45:04 AM Referred By: Confirmed By:PAULIE BERRIOS MD
[2019-03-21] MEDS ORDERED: CYCLOBENZAPRINE HCL 5 MG TABLET PO SCH (10:00)
[2019-03-21 10:47] LABS: ALBUMIN 3.8 g/dl (3.4-5.0); BILIRUBIN,TOTAL 0.4 mg/dL (0.2-1); BLOOD UREA NITROGEN 45.5 mg/dL (7-18); CALCIUM 9.1 mg/dL (8.5-10.1); CREATININE 1.8 mg/dL (0.55-1.3); POTASSIUM 4.9 mmol/L (3.5-5.1); TOT PROT 7.1 g/dl (6.4-8.2)
== END 2019-03-21 13:00 | disposition home or self-care (01) ==
LOC: JER 03:55
PROC: 3E033NZ Introduction of Analgesics, Hypnotics, Sedatives into Peripheral Vein, Percutaneous Approach (ICD-10-PCS; principal; 2019-03-21)
PROC: 3E0333Z Introduction of Anti-inflammatory into Peripheral Vein, Percutaneous Approach (ICD-10-PCS; 2019-03-21)
PROC: 3E033VG Introduction of Insulin into Peripheral Vein, Percutaneous Approach (ICD-10-PCS; 2019-03-21)
PROC: 3E033GC Introduction of Other Therapeutic Substance into Peripheral Vein, Percutaneous Approach (ICD-10-PCS; 2019-03-21)
PROC: 3E033GC Introduction of Other Therapeutic Substance into Peripheral Vein, Percutaneous Approach (ICD-10-PCS; 2019-03-21)
PROC: 3E0337Z Introduction of Electrolytic and Water Balance Substance into Peripheral Vein, Percutaneous Approach (ICD-10-PCS; 2019-03-21)
DX: M54.42 Lumbago with sciatica, left side (principal); E87.5 Hyperkalemia; I25.10 Atherosclerotic heart disease of native coronary artery without angina pectoris; I13.10 Hypertensive heart and chronic kidney disease without heart failure, with stage 1 through stage 4 chronic kidney disease, or unspecified chronic kidney disease; N18.9 Chronic kidney disease, unspecified; Z94.0 Kidney transplant status; Z95.5 Presence of coronary angioplasty implant and graft; E78.00 Pure hypercholesterolemia, unspecified; E11.22 Type 2 diabetes mellitus with diabetic chronic kidney disease; G62.9 Polyneuropathy, unspecified; Z79.4 Long term (current) use of insulin; Z79.899 Other long term (current) drug therapy; Z79.02 Long term (current) use of antithrombotics/antiplatelets; Z79.82 Long term (current) use of aspirin
CPT/HCPCS: 36415; 72131-TC; 72192-TC; 80053; 81003; 82962; 85025; 87086; 93005; 93010; 96374; 96375; 99284-25; J0131; J1100

== ENCOUNTER 2019-04-04 13:41 | Emergency (ER) | payer OTHER, BC ==
[2019-04-04 14:00] VITALS: BP 154/65; PULSE 72; TEMP 97.6; BMI 26.7
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
[2019-04-04] MEDS ORDERED: ACETAMINOPHEN 325 MG TABLET (FP) PO ONE (15:39)
[2019-04-04] MEDS ORDERED: METHOCARBAMOL 500 MG TABLET PO ONE (15:39)
[2019-04-04] MEDS ORDERED: METHOCARBAMOL 500 MG TABLET ONE (15:41)
[2019-04-04] MEDS ORDERED: ACETAMINOPHEN 325 MG TABLET (FP) ONE (15:41)
== END 2019-04-04 16:02 | disposition home or self-care (01) ==
LOC: JERFT 13:41
DX: S13.4XXA Sprain of ligaments of cervical spine, initial encounter (principal); S80.11XA Contusion of right lower leg, initial encounter; V43.52XA Car driver injured in collision with other type car in traffic accident, initial encounter; Y92.414 Local residential or business street as the place of occurrence of the external cause; Y93.89 Activity, other specified; Y99.8 Other external cause status; I25.10 Atherosclerotic heart disease of native coronary artery without angina pectoris; I10 Essential (primary) hypertension; Z95.5 Presence of coronary angioplasty implant and graft; E11.9 Type 2 diabetes mellitus without complications; Z79.4 Long term (current) use of insulin; E78.5 Hyperlipidemia, unspecified; E78.00 Pure hypercholesterolemia, unspecified; Z79.02 Long term (current) use of antithrombotics/antiplatelets; Z79.82 Long term (current) use of aspirin
CPT/HCPCS: 73562-TC-RT-FY; 73590-TC-RT-FY; 99281-25

== ENCOUNTER 2020-06-12 10:12 | Emergency (ER) | payer OTHER ==
[2020-06-12 10:23] VITALS: BMI 27.0
[2020-06-12 10:32] VITALS: TEMP 98
[2020-06-12 11:36] LABS: BASO % 0.2 % (0-2.0); EOS % 0.5 % (0-4.5); HEMOGLOBIN 13.1 GM/dL (11.7-16.9); LYMPH % 26.5 % (8-40); MCH 28.4 pg (25.7-33.7); MEAN CELL VOLUME 88.8 fl (80-96); MEAN PLT VOLUME 6.8 fl (7.5-11.1); MONO % 10.4 % (3.8-10.2); NEUT % 62.4 % (42.8-82.8); PLATELET COUNT 213 K/MM3 (134-434); RBC 4.62 M/mm3 (4.00-5.60); WHITE BLOOD COUNT 7.9 K/mm3 (4.0-10.0)
[2020-06-12 11:43] LABS: INR 0.97 (0.83-1.09); PROTHROMBIN TIME (PATIENT) 11.9 SEC (9.7-13.0)
[2020-06-12 11:45] LABS: ACTIVATED PTT 37.2 SECONDS (25.2-36.5)
[2020-06-12 11:56] LABS: POTASSIUM 4.6 mmol/L (3.5-5.1)
[2020-06-12 12:00] LABS: ALBUMIN 3.3 g/dl (3.4-5.0); BLOOD UREA NITROGEN 23.2 mg/dL (7-18); CALCIUM 8.6 mg/dL (8.5-10.1)
[2020-06-12 12:03] LABS: CREATININE 1.1 mg/dL (0.55-1.3)
[2020-06-12 12:05] LABS: BILIRUBIN,TOTAL 0.6 mg/dL (0.2-1); TOT PROT 6.2 g/dl (6.4-8.2)
[2020-06-12] MEDS ORDERED: oxyCODONE HCL 5 MG TABLET PO ONE (12:40)
[2020-06-12] MEDS ORDERED: oxyCODONE HCL 5 MG TABLET ONE (12:52)
[2020-06-12 13:57] VITALS: BP 145/79
[2020-06-16 07:42] VITALS: PULSE 90
== END 2020-06-12 13:57 | disposition home or self-care (01) ==
LOC: JER 10:12
DX: M54.5 Low back pain (principal); M79.604 Pain in right leg
CPT/HCPCS: 36415; 72131-TC; 80053; 83605; 85025; 85610; 85730; 93971-TC; 99285-25

== ENCOUNTER 2021-05-02 14:04 | Inpatient (IN) | payer OTHER, BC ==
[2021-05-02] MEDS ORDERED: FUROSEMIDE 40 MG/4 ML INJECTABLE VIAL IVPUSH ONE (15:02)
[2021-05-02] MEDS ORDERED: FUROSEMIDE 40 MG/4 ML INJECTABLE VIAL ONE (15:11)
[2021-05-02 15:16] LABS: VENOUS BASE EXCESS -5.7 mmol/L (-2-2); VENOUS O2 SATURATION 98.5 % (70-80); VENOUS PCO2 38.8 mmHg (38-52); VENOUS PH 7.326 (7.310-7.410)
[2021-05-02] MEDS ORDERED: PIPERACILLIN/TAZOB 3.375 GM 3.375 GM in DEXTROSE 5%-WATER - 50 ML IVPB ONE (15:24)
[2021-05-02] MEDS ORDERED: VANCOMYCIN 1 GM in D5W (PRE-DOCKED) 1,000 MG/250 ML IVPB ONE (15:24)
[2021-05-02 15:27] LABS: BASO % 0.5 % (0-2.0); EOS % 0.8 % (0-4.5); HEMATOCRIT 32.1 % (35.4-49); HEMOGLOBIN 10.1 GM/dL (11.7-16.9); LYMPH % 30.2 % (8-40); MCH 27.4 pg (25.7-33.7); MCHC 31.5 g/dl (32.0-35.9); MEAN PLT VOLUME 7.6 fl (7.5-11.1); MONO % 11.6 % (3.8-10.2); NEUT % 56.9 % (42.8-82.8); PLATELET COUNT 166 10^3/uL (134-434); RBC 3.69 M/mm3 (4.00-5.60); RDW 16.4 % (11.9-15.9); WHITE BLOOD COUNT 7.4 K/mm3 (4.0-10.0)
[2021-05-02] MEDS ORDERED: PIPERACILLIN/TAZOB 3.375 GM 3.375 GM/50 ML BAG IVPB ONE (15:27)
[2021-05-02] MEDS ORDERED: VANCOMYCIN 1 GRAM (PRE-DOCKED) 1,000 MG/250 ML BAG IVPB ONE (15:27)
[2021-05-02 15:42] LABS: CHLORIDE 116 mmol/L (98-107); SODIUM 144 mmol/L (136-145)
[2021-05-02 15:45] LABS: ALBUMIN 2.9 g/dl (3.4-5.0); ANION GAP 8 MMOL/L (8-16); BLOOD UREA NITROGEN 55.8 mg/dL (7-18); CALCIUM 8.3 mg/dL (8.5-10.1); CO2 20 mmol/L (21-32); GLUCOSE,RANDOM 145 mg/dL (74-106)
[2021-05-02 15:48] LABS: CREATININE 1.7 mg/dL (0.55-1.3); SGOT/AST 18 U/L (15-37); SGPT/ALT 34 U/L (13-61)
[2021-05-02 15:50] LABS: BILIRUBIN,TOTAL 0.3 mg/dL (0.2-1); TOT PROT 6.2 g/dl (6.4-8.2)
[2021-05-02 15:51] LABS: ALK PHOS 148 U/L (45-117)
[2021-05-02 15:53] LABS: N-TERMINAL BNP 6546.5 pg/ml (5-125)
[2021-05-02] MEDS ORDERED: CALCIUM GLUCONATE 10% - 1,000 MG/10 ML VIAL IVPUSH ONE (17:25)
[2021-05-02] MEDS ORDERED: CALCIUM GLUCONATE 10% - 1,000 MG/10 ML VIAL ONE (18:33)
[2021-05-02] MEDS: INSULIN SLIDING SCALE (NOVOLOG) 1 VIAL SQ SCH (21:17)
[2021-05-02] MEDS: TACROLIMUS ANHYDROUS 1 MG CAPSULE PO SCH (21:47)
[2021-05-02] MEDS: MYCOPHENOLATE MOFETIL 250 MG CAPSULE PO SCH (21:47)
[2021-05-02] MEDS ORDERED: INSULIN (LEVEMIR) 100 UNITS/ML UNITS SQ SCH (22:00)
[2021-05-03] MEDS: INSULIN SLIDING SCALE (NOVOLOG) 1 VIAL SQ SCH ×3 (06:10→17:12)
[2021-05-03 07:00] LABS: HEMATOCRIT 33.5 % (35.4-49); HEMOGLOBIN 10.6 GM/dL (11.7-16.9); MCH 27.7 pg (25.7-33.7); MCHC 31.5 g/dl (32.0-35.9); MEAN PLT VOLUME 7.9 fl (7.5-11.1); PLATELET COUNT 180 10^3/uL (134-434); RBC 3.81 M/mm3 (4.00-5.60); RDW 16.5 % (11.9-15.9); WHITE BLOOD COUNT 5.9 K/mm3 (4.0-10.0)
[2021-05-03 07:27] LABS: ALBUMIN 3.1 g/dl (3.4-5.0); CALCIUM 8.4 mg/dL (8.5-10.1); CREATININE 1.8 mg/dL (0.55-1.3)
[2021-05-03 07:28] LABS: BLOOD UREA NITROGEN 54.5 mg/dL (7-18); MAGNESIUM 2.5 mg/dL (1.8-2.4)
[2021-05-03 07:29] LABS: BILIRUBIN,TOTAL 0.3 mg/dL (0.2-1); TOT PROT 6.5 g/dl (6.4-8.2)
[2021-05-03] MEDS: FUROSEMIDE 40 MG/4 ML INJECTABLE VIAL IVPUSH SCH (09:01)
[2021-05-03] MEDS: NIFEdipine E.R 60 MG TABLET PO SCH (09:02)
[2021-05-03] MEDS: predniSONE 5 MG TABLET (UD) PO SCH (09:02)
[2021-05-03] MEDS: CLOPIDOGREL BISULFATE 75 MG TABLET (FP) PO SCH (09:02)
[2021-05-03] MEDS: METOPROLOL TARTRATE 50 MG TABLET (FP) PO SCH (09:02)
[2021-05-03] MEDS: ASPIRIN COATED 81 MG TABLET.EC PO SCH (09:02)
[2021-05-03] MEDS ORDERED: FUROSEMIDE 40 MG/4 ML INJECTABLE VIAL IVPUSH ONE (11:19)
[2021-05-03] MEDS ORDERED: PT OWN MED DRAWER 7, Y5N ONE (12:00)
[2021-05-03] MEDS: TACROLIMUS ANHYDROUS 1 MG CAPSULE PO SCH ×2 (12:01→22:43)
[2021-05-03] MEDS: MYCOPHENOLATE MOFETIL 250 MG CAPSULE PO SCH ×2 (12:01→22:43)
[2021-05-03] MEDS: HEPARIN NA (PORCINE) 5,000 UNITS/ML 1ML VIAL SQ SCH (22:43)
[2021-05-03] MEDS: INSULIN (LEVEMIR) 100 UNITS/ML UNITS SQ SCH (22:52)
[2021-05-04] MEDS: HEPARIN NA (PORCINE) 5,000 UNITS/ML 1ML VIAL SQ SCH ×3 (07:09→23:16)
[2021-05-04] MEDS: INSULIN SLIDING SCALE (NOVOLOG) 1 VIAL SQ SCH ×4 (07:10→17:22)
[2021-05-04 07:14] LABS: HEMATOCRIT 35.6 % (35.4-49); MCHC 30.8 g/dl (32.0-35.9); MEAN CELL VOLUME 87.7 fl (80-96); MEAN PLT VOLUME 8.1 fl (7.5-11.1); PLATELET COUNT 190 10^3/uL (134-434); RBC 4.06 M/mm3 (4.00-5.60); RDW 16.3 % (11.9-15.9); WHITE BLOOD COUNT 5.3 K/mm3 (4.0-10.0)
[2021-05-04 07:58] LABS: BLOOD UREA NITROGEN 53.4 mg/dL (7-18); CALCIUM 8.6 mg/dL (8.5-10.1); MAGNESIUM 2.5 mg/dL (1.8-2.4)
[2021-05-04 08:01] LABS: CREATININE 1.8 mg/dL (0.55-1.3); PHOSPHOROUS 4.2 mg/dL (2.5-4.9)
[2021-05-04] MEDS ORDERED: PT OWN MED DRAWER 7, Y5N ONE (10:49)
[2021-05-04] MEDS: METOPROLOL TARTRATE 50 MG TABLET (FP) PO SCH (10:51)
[2021-05-04] MEDS: MYCOPHENOLATE MOFETIL 250 MG CAPSULE PO SCH ×2 (10:51→23:16)
[2021-05-04] MEDS: predniSONE 5 MG TABLET (UD) PO SCH (10:51)
[2021-05-04] MEDS: CLOPIDOGREL BISULFATE 75 MG TABLET (FP) PO SCH (10:51)
[2021-05-04] MEDS: ASPIRIN COATED 81 MG TABLET.EC PO SCH (10:51)
[2021-05-04] MEDS: TACROLIMUS ANHYDROUS 1 MG CAPSULE PO SCH ×2 (10:51→23:16)
[2021-05-04] MEDS: FUROSEMIDE 40 MG/4 ML INJECTABLE VIAL IVPUSH SCH (10:52)
[2021-05-04] MEDS: NIFEdipine E.R 60 MG TABLET PO SCH (10:52)
[2021-05-04 16:52] VITALS: BMI 29.7
[2021-05-04] MEDS: INSULIN (LEVEMIR) 100 UNITS/ML UNITS SQ SCH (23:17)
[2021-05-05] MEDS: INSULIN SLIDING SCALE (NOVOLOG) 1 VIAL SQ SCH ×3 (07:12→17:12)
[2021-05-05] MEDS: HEPARIN NA (PORCINE) 5,000 UNITS/ML 1ML VIAL SQ SCH ×3 (07:13→22:38)
[2021-05-05 07:14] LABS: HEMATOCRIT 35.3 % (35.4-49); HEMOGLOBIN 11.1 GM/dL (11.7-16.9); MCH 27.5 pg (25.7-33.7); MCHC 31.5 g/dl (32.0-35.9); MEAN CELL VOLUME 87.2 fl (80-96); MEAN PLT VOLUME 7.4 fl (7.5-11.1); PLATELET COUNT 192 10^3/uL (134-434); RBC 4.05 M/mm3 (4.00-5.60); RDW 16.3 % (11.9-15.9); WHITE BLOOD COUNT 5.1 K/mm3 (4.0-10.0)
[2021-05-05 07:25] LABS: CALCIUM 8.9 mg/dL (8.5-10.1); MAGNESIUM 2.4 mg/dL (1.8-2.4)
[2021-05-05 07:26] LABS: BLOOD UREA NITROGEN 51.4 mg/dL (7-18)
[2021-05-05 07:29] LABS: CREATININE 1.7 mg/dL (0.55-1.3); PHOSPHOROUS 3.6 mg/dL (2.5-4.9)
[2021-05-05] MEDS ORDERED: SODIUM ZIRCONIUM CYCLOSILICATE (LOKELMA) 5 GM PACKET PO ONE (08:10)
[2021-05-05] MEDS: FUROSEMIDE 40 MG/4 ML INJECTABLE VIAL IVPUSH SCH (10:12)
[2021-05-05] MEDS: predniSONE 5 MG TABLET (UD) PO SCH (10:12)
[2021-05-05] MEDS: CLOPIDOGREL BISULFATE 75 MG TABLET (FP) PO SCH (10:12)
[2021-05-05] MEDS: ASPIRIN COATED 81 MG TABLET.EC PO SCH (10:12)
[2021-05-05] MEDS: METOPROLOL TARTRATE 50 MG TABLET (FP) PO SCH (10:13)
[2021-05-05] MEDS: MYCOPHENOLATE MOFETIL 250 MG CAPSULE PO SCH ×2 (10:13→22:00)
[2021-05-05] MEDS: NIFEdipine E.R 60 MG TABLET PO SCH (10:13)
[2021-05-05] MEDS: TACROLIMUS ANHYDROUS 1 MG CAPSULE PO SCH ×2 (10:13→22:39)
[2021-05-05] MEDS ORDERED: PT OWN MED DRAWER 7, Y5N ONE (22:22)
[2021-05-05] MEDS: DONEPEZIL HCL 10 MG TABLET (FP) PO SCH (22:38)
[2021-05-05] MEDS: GABAPENTIN 300 MG CAPSULE PO SCH (22:42)
[2021-05-05] MEDS: ATORVASTATIN CA 10 MG TABLET (FP) PO SCH (22:42)
[2021-05-05] MEDS: INSULIN (LEVEMIR) 100 UNITS/ML UNITS SQ SCH (22:43)
[2021-05-06] MEDS: GABAPENTIN 300 MG CAPSULE PO SCH ×3 (06:45→21:01)
[2021-05-06] MEDS: HEPARIN NA (PORCINE) 5,000 UNITS/ML 1ML VIAL SQ SCH ×3 (06:49→21:01)
[2021-05-06] MEDS: INSULIN SLIDING SCALE (NOVOLOG) 1 VIAL SQ SCH ×3 (06:54→17:08)
[2021-05-06 07:26] LABS: BLOOD UREA NITROGEN 50.5 mg/dL (7-18); CALCIUM 8.8 mg/dL (8.5-10.1); MAGNESIUM 2.3 mg/dL (1.8-2.4)
[2021-05-06 07:29] LABS: CREATININE 1.5 mg/dL (0.55-1.3); PHOSPHOROUS 3.3 mg/dL (2.5-4.9)
[2021-05-06 09:01] LABS: HEMATOCRIT 35.5 % (35.4-49); HEMOGLOBIN 11.1 GM/dL (11.7-16.9); MCH 27.3 pg (25.7-33.7); MCHC 31.4 g/dl (32.0-35.9); MEAN PLT VOLUME 7.8 fl (7.5-11.1); PLATELET COUNT 188 10^3/uL (134-434); RBC 4.08 M/mm3 (4.00-5.60); RDW 16.2 % (11.9-15.9); WHITE BLOOD COUNT 4.9 K/mm3 (4.0-10.0)
[2021-05-06] MEDS: predniSONE 5 MG TABLET (UD) PO SCH (10:06)
[2021-05-06] MEDS: CLOPIDOGREL BISULFATE 75 MG TABLET (FP) PO SCH (10:06)
[2021-05-06] MEDS: FUROSEMIDE 40 MG/4 ML INJECTABLE VIAL IVPUSH SCH (10:06)
[2021-05-06] MEDS: ASPIRIN COATED 81 MG TABLET.EC PO SCH (10:07)
[2021-05-06] MEDS: NIFEdipine E.R 60 MG TABLET PO SCH (10:07)
[2021-05-06] MEDS: TACROLIMUS ANHYDROUS 1 MG CAPSULE PO SCH ×2 (10:07→21:01)
[2021-05-06] MEDS: METOPROLOL TARTRATE 50 MG TABLET (FP) PO SCH (10:09)
[2021-05-06] MEDS: MYCOPHENOLATE MOFETIL 250 MG CAPSULE PO SCH ×2 (10:16→21:01)
[2021-05-06] MEDS: SILVER SULFADIAZINE 1% TOP CREAM 50 GM JAR TP SCH (17:07)
[2021-05-06] MEDS: ATORVASTATIN CA 10 MG TABLET (FP) PO SCH (21:01)
[2021-05-06] MEDS: INSULIN (LEVEMIR) 100 UNITS/ML UNITS SQ SCH (21:01)
[2021-05-06] MEDS: DONEPEZIL HCL 10 MG TABLET (FP) PO SCH (21:02)
[2021-05-07] MEDS: GABAPENTIN 300 MG CAPSULE PO SCH ×2 (05:50→13:29)
[2021-05-07] MEDS: HEPARIN NA (PORCINE) 5,000 UNITS/ML 1ML VIAL SQ SCH ×2 (05:50→13:29)
[2021-05-07] MEDS: INSULIN SLIDING SCALE (NOVOLOG) 1 VIAL SQ SCH ×3 (06:03→17:12)
[2021-05-07 07:11] LABS: HEMATOCRIT 34.6 % (35.4-49); HEMOGLOBIN 11.3 GM/dL (11.7-16.9); MCH 27.7 pg (25.7-33.7); MCHC 32.7 g/dl (32.0-35.9); MEAN CELL VOLUME 84.6 fl (80-96); MEAN PLT VOLUME 7.2 fl (7.5-11.1); PLATELET COUNT 181 10^3/uL (134-434); RBC 4.09 M/mm3 (4.00-5.60); RDW 15.9 % (11.9-15.9); WHITE BLOOD COUNT 5.5 K/mm3 (4.0-10.0)
[2021-05-07 07:37] LABS: CALCIUM 8.8 mg/dL (8.5-10.1)
[2021-05-07 07:38] LABS: BLOOD UREA NITROGEN 49.8 mg/dL (7-18); MAGNESIUM 2.3 mg/dL (1.8-2.4)
[2021-05-07 07:41] LABS: CREATININE 1.5 mg/dL (0.55-1.3); PHOSPHOROUS 3.8 mg/dL (2.5-4.9)
[2021-05-07] MEDS ORDERED: PT OWN MED DRAWER 7, Y5N ONE (09:16)
[2021-05-07] MEDS: TACROLIMUS ANHYDROUS 1 MG CAPSULE PO SCH (09:42)
[2021-05-07] MEDS: CLOPIDOGREL BISULFATE 75 MG TABLET (FP) PO SCH (09:42)
[2021-05-07] MEDS: ASPIRIN COATED 81 MG TABLET.EC PO SCH (09:42)
[2021-05-07] MEDS: METOPROLOL TARTRATE 50 MG TABLET (FP) PO SCH (09:42)
[2021-05-07] MEDS: MYCOPHENOLATE MOFETIL 250 MG CAPSULE PO SCH (09:42)
[2021-05-07] MEDS: predniSONE 5 MG TABLET (UD) PO SCH (09:43)
[2021-05-07] MEDS: FUROSEMIDE 40 MG/4 ML INJECTABLE VIAL IVPUSH SCH (09:43)
[2021-05-07] MEDS: SILVER SULFADIAZINE 1% TOP CREAM 50 GM JAR TP SCH (09:44)
[2021-05-07] MEDS: NIFEdipine E.R 60 MG TABLET PO SCH (09:44)
[2021-05-07] MEDS ORDERED: INSULIN (NOVOLOG) ASPART 100 UNITS/ML 10ML VIAL ONE (11:07)
[2021-05-07 14:43] VITALS: BP 132/64; PULSE 65; TEMP 98
== END 2021-05-07 18:12 | disposition home or self-care (01) | DRG 291 ==
LOC: JER 14:04 → JERBED 16:30 → J4W 23:23
PROVIDERS: ADMIT Internal Medicine; ATTEND Internal Medicine
DX: I13.2 Hypertensive heart and chronic kidney disease with heart failure and with stage 5 chronic kidney disease, or end stage renal disease (principal); J81.0 Acute pulmonary edema; I50.33 Acute on chronic diastolic (congestive) heart failure; L03.115 Cellulitis of right lower limb; D84.9 Immunodeficiency, unspecified; Z94.0 Kidney transplant status; N17.9 Acute kidney failure, unspecified; N18.5 Chronic kidney disease, stage 5; I25.10 Atherosclerotic heart disease of native coronary artery without angina pectoris; I25.2 Old myocardial infarction; I44.0 Atrioventricular block, first degree; E87.5 Hyperkalemia; D64.9 Anemia, unspecified; E11.22 Type 2 diabetes mellitus with diabetic chronic kidney disease; Z95.5 Presence of coronary angioplasty implant and graft
CPT/HCPCS: 36415; 71045-TC-FY; 76775-TC; 80048; 80053; 80197; 82550; 82803; 82962; 83036; 83735; 83880; 84100; 84132; 84484; 85025; 85027; 87804; 93005; 93010; 93306-TC; 93971-TC; 94761; 97116-GP; 97161-GP; 99285-25; C9803; J1644; J7517; U0003; U0005